=== PATIENT | female | born 1935 | race Caucasian/White ===

== ENCOUNTER 2018-05-03 20:19 | Inpatient (IN) ==
[2018-05-03] MEDS ORDERED: ACETAMINOPHEN 325 MG TABLET PO ONE (20:37)
[2018-05-03] MEDS ORDERED: 0.9 % SODIUM CHLORIDE 1,000 ML IV ONE (20:38)
--- NOTE | 2018-05-03 20:42 | Emergency Department Note ---
Fever HPI - General Chief Complaint: Fever Stated Complaint: fever, nausea Time Seen by Provider: 05/03/18 20:26 Mode of arrival: ambulatory - History of Present Illness HPI Narrative: Patient states she developed chills and fever just that 5:00 this evening. She had some nausea and vomited one time but is having no abdominal pain. She has had no hematemesis no melena. No diarrhea or constipation issues. Denies any urgency frequency or dysuria. She was seen for similar type symptoms at [facility] in December and had a UTI at that time. She denies any cough there is been no sputum production no shortness of breathTemperatures 103.1 the pulse is 76 respirations are 16 blood pressure 137/60 she denies any pain - Related Data Home Medications Medication Instructions Recorded Confirmed No Known Home Meds 09/30/15 05/03/18 Allergies Allergy/AdvReac Type Severity Reaction Status Date / Time No Known Drug Allergies Allergy Verified 05/03/18 20:25 Review of Systems All systems ED: reviewed and negative except as stated. Constitutional: Reports: fever, chills Eyes: Denies: eye pain ENT ED: Denies: ear pain, throat pain Cardiovascular: Denies: chest pain, palpitations Respiratory: Denies: shortness of breath, cough Gastrointestinal: Reports: nausea, vomiting. Denies: abdominal pain, diarrhea, constipation Genitourinary: Reports: as per HPI. Denies: dysuria, urgency, frequency, hematuria, incontinence Musculoskeletal: Denies: as per HPI, back pain Integumentary: Denies: rash Neurological: Denies: headache Psychiatric: Denies: anxiety Fever PMH - Past Medical History [facility] Narrative: All Active Problems Pleural effusion, left (Acute) Lymphadenopathy (Acute) Medical history: Reports: other (melanoma, breast cancer) - Social History smoking status: Former smoker Physical Exam Limitations: no limitations General appearance: alert Head: atraumatic, normocephalic Eye: Present: normal appearance, PERRL ENT: normal exam, normal oropharynx, mucous membranes dry Neck: Present: normal inspection, full ROM. Absent: trachea midline Chest: Present: normal inspection, symmetric chest wall rise. Absent: tenderness Respiratory: Present: normal lung sounds bilaterally. Absent: respiratory distress, rales/crackles Cardiovascular: Present: regular rate, normal rhythm. Absent: bradycardia, tachycardia Abdominal: Present: soft, normal bowel sounds. Absent: distention, tenderness, guarding, rebound, rigidity Extremities: Present: normal inspection, full ROM. Absent: tenderness Back: Present: normal inspection, full ROM. Absent: tenderness, CVA tenderness (R), CVA tenderness (L) Neurological: Present: alert, oriented X3, CN II-XII intact Psychiatric: Present: normal affect, normal mood Skin: Present: warm, dry Course Vital Signs Temperature 103.1 F H 05/03/18 20:19 Pulse Rate 76 05/03/18 20:19 Respiratory Rate 16 05/03/18 20:19 Blood Pressure 137/60 05/03/18 20:19 Temperature 99.8 F H 05/03/18 22:29 Pulse Rate 105 H 05/03/18 22:46 Respiratory Rate 24 H 05/03/18 22:46 Blood Pressure 101/86 05/03/18 22:46 Pulse Oximetry (%) 99 05/03/18 22:46 Fever - MDM Narrative Medical decision making narrative: Her most recent temperature is 99.8 blood pressure 108/53 104/48 101/86 heart rates been varying from [id number] socks is right from 93-99 WBC is 7500 the hemoglobin is 12.5 hematocrit of 37.2 lactic acid is 1.9 sodium is 137 potassium 3.8 BUN is 16 creatinine 1.0 urine test is clear with 2 WBCs to RBCs. Chest x-ray was read by Romana indicating vague infiltrates patient blood cultures have been drawn and started on Rocephin and Zithromax. Dr. Mcfarland contacted and patient to be admitted - Lab Data Result diagrams: 05/03/18 20:50 05/03/18 20:50 Lab Results 05/03/18 05/03/18 05/03/18 Range/Units 20:50 20:50 20:50 WBC 7.5 (4.5-11.0) K/mcL RBC 4.13 (4.00-5.20) M/mcL Hgb 12.5 (12.0-15.0) g/dL Hct 37.2 (36.0-48.0) % MCV 90.1 (80.0-100.0) fL MCH 30.1 (26.0-34.0) pg MCHC 33.4 (31.0-36.0) g/dL RDW 12.6 (11.5-14.5) % Plt Count 261 (140-440) K/mcL MPV 7.0 L (7.4-10.4) fL Gran % 93.0 H (38.0-78.0) % Lymph % (Auto) 3.5 L (15.5-49.0) % [place] % (Auto) 2.7 (1.0-12.0) % Eos % (Auto) 0.8 (0.0-7.0) % Baso % (Auto) 0 (0.0-2.0) % Gran # 6.9 (1.8-8.0) K/mcL Lymph # (Auto) 0.3 L (1.5-4.8) K/mcL [place] # (Auto) 0.2 (0.1-0.9) K/mcL Eos # (Auto) 0.1 (0.0-0.7) K/mcL Baso # (Auto) 0 (0.0-0.3) K/mcL VBG Lactic Acid 1.9 (0.5-2.0) mmol/L Sodium 137 (133-145) mmol/L Potassium 3.8 (3.3-5.1) mmol/L Chloride 98 (96-108) mmol/L Carbon Dioxide 26 (22-30) mmol/L Anion Gap 13.0 (8-16) BUN 16 (8-23) mg/dl Creatinine 1.0 (0.6-1.1) mg/dl GFR Calculation 52 Glucose 116 H (70-105) mg/dL Calcium 9.0 (8.6-10.4) mg/dl Total Bilirubin 0.5 (0.0-1.0) mg/dL AST 28 (0-37) U/l ALT 17 (0-40) U/l Alkaline Phosphatase 81 (39-117) U/L Total Protein 7.4 (5.9-8.4) gm/dL Albumin 3.6 (3.2-5.2) gm/dL Globulin 3.8 H (2.2-3.7) gm/dL Albumin/Globulin Ratio 0.9 L (1.0-2.3) Urine Color Urine Appearance Urine pH (5.0-9.0) Ur Specific [place] (1.000-1.035) Urine Protein (NEG) mg/dL Urine Glucose (UA) (NEG) mg/dL Urine Ketones (NEG) mg/dL Urine Occult Blood (<0.03) mg/dL Urine Nitrate (NEG) Urine Bilirubin (NEG) mg/dL Urine Urobilinogen (NEG) mg/dL Ur Leukocyte Esterase (NEG) /uL Urine RBC (0-1) /hpf Urine WBC (0-4) /hpf Ur Squamous Epith Cells (0-4) /hpf Urine Bacteria (0) /hpf Hyaline Casts (0-2) /lpf Urine Mucus (0) /hpf Ur Culture Indicated? 05/03/18 Range/Units 21:30 WBC (4.5-11.0) K/mcL RBC (4.00-5.20) M/mcL Hgb (12.0-15.0) g/dL Hct (36.0-48.0) % MCV (80.0-100.0) fL MCH (26.0-34.0) pg MCHC (31.0-36.0) g/dL RDW (11.5-14.5) % Plt Count (140-440) K/mcL MPV (7.4-10.4) fL Gran % (38.0-78.0) % Lymph % (Auto) (15.5-49.0) % [place] % (Auto) (1.0-12.0) % Eos % (Auto) (0.0-7.0) % Baso % (Auto) (0.0-2.0) % Gran # (1.8-8.0) K/mcL Lymph # (Auto) (1.5-4.8) K/mcL [place] # (Auto) (0.1-0.9) K/mcL Eos # (Auto) (0.0-0.7) K/mcL Baso # (Auto) (0.0-0.3) K/mcL VBG Lactic Acid (0.5-2.0) mmol/L Sodium (133-145) mmol/L Potassium (3.3-5.1) mmol/L Chloride (96-108) mmol/L Carbon Dioxide (22-30) mmol/L Anion Gap (8-16) BUN (8-23) mg/dl Creatinine (0.6-1.1) mg/dl GFR Calculation Glucose (70-105) mg/dL Calcium (8.6-10.4) mg/dl Total Bilirubin (0.0-1.0) mg/dL AST (0-37) U/l ALT (0-40) U/l Alkaline Phosphatase (39-117) U/L Total Protein (5.9-8.4) gm/dL Albumin (3.2-5.2) gm/dL Globulin (2.2-3.7) gm/dL Albumin/Globulin Ratio (1.0-2.3) Urine Color Yellow Urine Appearance Clear Urine pH 6.0 (5.0-9.0) Ur Specific [place] 1.019 (1.000-1.035) Urine Protein 30 A (NEG) mg/dL Urine Glucose (UA) Negative (NEG) mg/dL Urine Ketones Neg (NEG) mg/dL Urine Occult Blood Neg (<0.03) mg/dL Urine Nitrate Neg (NEG) Urine Bilirubin Neg (NEG) mg/dL Urine Urobilinogen Neg (NEG) mg/dL Ur Leukocyte Esterase Neg (NEG) /uL Urine RBC 2 H (0-1) /hpf Urine WBC 2 (0-4) /hpf Ur Squamous Epith Cells 1 (0-4) /hpf Urine Bacteria 0 (0) /hpf Hyaline Casts 1 (0-2) /lpf Urine Mucus Few (0) /hpf Ur Culture Indicated? No Disposition Pt seen by TRANSPORTATION CLERK/PA only: No Clinical Impression: Fever and chills, Pneumonia Disposition: Xfer As Inpt ([facility]) Condition: Fair Referrals: Jason Kerr MD [Primary Care Provider] -
[2018-05-03] MEDS ORDERED: AZITHROMYCIN 500 MG in DEXTROSE 5% IN WATER 250 ML IV ONE (21:43)
[2018-05-03] MEDS ORDERED: cefTRIAXone 1 GM VIAL IV ONE (21:44)
[2018-05-03 21:53] LABS: Basophils # (Auto) 0 K/mcL (0.0-0.3); Basophils % (Auto) 0 % (0.0-2.0); Eosinophils # (Auto) 0.1 K/mcL (0.0-0.7); Eosinophils % (Auto) 0.8 % (0.0-7.0); Lymphocytes # (Auto) 0.3 K/mcL (1.5-4.8); Lymphocytes % (Auto) 3.5 % (15.5-49.0); Mean Cell Volume 90.1 fL (80.0-100.0); Mean Corpuscular HGB Conc 33.4 g/dL (31.0-36.0); Mean Corpuscular Hemoglobin 30.1 pg (26.0-34.0); Monocytes # (Auto) 0.2 K/mcL (0.1-0.9); Monocytes % (Auto) 2.7 % (1.0-12.0); Platelet Count 261 K/mcL (140-440); RBC 4.13 M/mcL (4.00-5.20); Red Cell Distribution Width 12.6 % (11.5-14.5)
[2018-05-03 22:00] LABS: ALT/SGPT 17 U/l (0-40); Albumin 3.6 gm/dL (3.2-5.2); Albumin/Globulin Ratio 0.9 (1.0-2.3); Alkaline Phosphatase 81 U/L (39-117); Blood Urea Nitrogen 16 mg/dl (8-23)
[2018-05-03 22:53] LABS: Appearance,Urine CLEAR; Bacteria,Urine 0 /hpf (0); Bilirubin,Urine NEG (NEG); Color,Urine YELLOW; Glucose,Urine (UA) NEGATIVE (NEG); Leukocyte Esterase,Urine NEG /uL (NEG); Mucus,Urine FEW /hpf (0); Protein,Urine 30 mg/dL (NEG); Specific Gravity,Urine 1.019 (1.000-1.035); Urine Blood NEG mg/dL (<0.03); Urine Hyaline Cast 1 /lpf (0-2); Urine RBC 2 /hpf (0-1); Urine Squamous Epithelial Cell 1 /hpf (0-4); Urine WBC 2 /hpf (0-4); Urobilinogen,Urine NEG (NEG)
[2018-05-04] MEDS ORDERED: ACETAMINOPHEN 1,000 MG/100 ML BOTTLE IV PRN ×2 (00:59→10:27)
[2018-05-04] MEDS ORDERED: POTASSIUM CHLORIDE 20 MEQ PACKET PO PRN ×2 (00:59→10:27)
[2018-05-04] MEDS ORDERED: MAGNESIUM SULFATE 2 GM/50 ML BAG IV PRN ×2 (00:59→10:27)
[2018-05-04] MEDS ORDERED: ONDANSETRON 4 MG/2 ML VIAL IV PRN ×2 (00:59→10:27)
[2018-05-04] MEDS ORDERED: ACETAMINOPHEN 325 MG TABLET PO PRN (00:59)
[2018-05-04] MEDS ORDERED: 0.9 % SODIUM CHLORIDE 1,000 ML IV SCH (00:59)
[2018-05-04] MEDS ORDERED: PNEUMOCOCCAL 23-VAL P-SAC VAC 0.5 ML VIAL IM ONE (00:59)
[2018-05-04] MEDS ORDERED: cefTRIAXone 2 GM in DEXTROSE 5% IN WATER 50 ML IV SCH (00:59)
[2018-05-04] MEDS ORDERED: LEVOFLOXACIN 750 MG/150 ML BAG IV SCH (00:59)
[2018-05-04] MEDS ORDERED: cefTRIAXone 1 GM VIAL ONE (01:19)
[2018-05-04] MEDS ORDERED: LEVOFLOXACIN 750 MG/150 ML BAG IV ONE (01:19)
[2018-05-04 02:48] LABS: C-Reactive Protein 2.9 mg/dl (0.0-0.8)
[2018-05-04] MEDS: IPRATROPIUM/ALBUTEROL 3 ML AMPUL.NEB NEB SCH ×2 (03:56→07:22)
[2018-05-04] MEDS ORDERED: IPRATROPIUM/ALBUTEROL 3 ML AMPUL.NEB NEB ONE (03:58)
[2018-05-04] MEDS ORDERED: 0.9 % SODIUM CHLORIDE 10 ML SYRINGE IV SCH (06:00)
--- NOTE | 2018-05-04 07:52 | XRay Report ---
HISTORY: Fever and chest pain FINDINGS: The heart is mildly enlarged. There is mild generalized haziness throughout the lung parenchyma bilaterally. This could be due to pneumonia or congestive heart failure. The left-sided pleural effusion seen on 09/30/15 has resolved. There is no recurrent effusion. The aorta is tortuous. There is no consolidating infiltrate or evidence of a lung mass. IMPRESSION: Cardiomegaly which has increased since 2016. Alveolar opacities which may be congestive heart failure or mild widespread pneumonia Interpreted and Authenticated by: Hiro Lay 05/04/18
[2018-05-04] MEDS ORDERED: BUDESONIDE 0.5 MG/2 ML AMPUL.NEB NEB SCH ×2 (09:00→21:00)
[2018-05-04] MEDS ORDERED: MULTIVIT,THER IRON,CA,FA & MIN 1 TABLET PO SCH (09:00)
[2018-05-04] MEDS ORDERED: DOCUSATE SODIUM 100 MG CAPSULE PO SCH (09:00)
[2018-05-04] MEDS ORDERED: HEPARIN 5,000 UNIT/ML VIAL SQ SCH (09:00)
[2018-05-04] MEDS ORDERED: CLINDAMYCIN 600 MG in DEXTROSE 5% IN WATER 50 ML IV SCH (10:00)
--- NOTE | 2018-05-04 10:12 | Internal Med Progress Note ---
Medical - PN: Subj Patient information: Note initiated : 05/04/18 at 10:10 am Service Date, if different from initiated Date: [] Patient: Lynette Salamanca 82 y/o F admitted on 05/04/18 for fever, nausea. Chief Complaint: [] Interval history: 05/03-patient admitted with left lower extremity lymphangitis/cellulitis likely group B streptococcus. Rapidly progressing and hence started on clindamycin/ Rocephin. Await blood cultures. Continue close monitoring, lactic acid trending. Current lactic acid 2.6. On crystalloids. - Constitutional Vitals: Vital Signs Temp Pulse Resp BP Pulse Ox 98.4 F 76 24 H 96/52 96 05/04/18 06:46 05/04/18 09:28 05/04/18 09:28 05/04/18 09:28 05/04/18 08:51 Period Temp Pulse Resp BP Sys/Tobar Pulse Ox Last 24 Hr 97.8 F-103.1 F 74-115 16-32 79-146/42-86 86-100 Intake and Output 05/03/18 05/04/18 05/04/18 21:59 05:59 13:59 Intake Total 250 / 250 150 / 150 Output Total 0 / 0 Balance 250 / 250 150 / 150 Weight 153 lb 155 lb Intake & Output: Intake & Output 05/03/18 05/04/18 05/04/18 21:59 05:59 13:59 Intake Total 250 / 250 150 / 150 Output Total 0 / 0 Balance 250 / 250 150 / 150 Weight 153 lb 155 lb Intake: IV 250 / 250 150 / 150 Zithromax 500 mg In Dextrose 5% 250 / 250 in Water 250 ml @ 250 mls/hr IV ONCE ONE Rx#:[id number] Oral 0 / 0 Output: Void Amount 0 / 0 Other: Meal Breakfast Percent of Meal Consumed Refused Feeding Ability Independent General appearance: cooperative, no acute distress Exam: Alert oriented nonlabored breathing No anxiety Left lower extremity mid carrera erythema extending to the dorsum of the foot/ ankle with associated calf tenderness Medical - PN: Obj Da - Labs CBC & Chem 7: 05/03/18 20:50 05/03/18 20:50 Labs: Abnormal Lab Results 05/04/18 05/04/18 05/04/18 08:53 01:18 01:18 MPV Gran % Lymph % (Auto) Lymph # (Auto) ESR 46 H VBG Lactic Acid 2.6 H Glucose C-Reactive Protein 2.9 H Globulin Albumin/Globulin Ratio Urine Protein Urine RBC 05/03/18 05/03/18 05/03/18 21:30 20:50 20:50 MPV 7.0 L Gran % 93.0 H Lymph % (Auto) 3.5 L Lymph # (Auto) 0.3 L ESR VBG Lactic Acid Glucose 116 H C-Reactive Protein Globulin 3.8 H Albumin/Globulin Ratio 0.9 L Urine Protein 30 A Urine RBC 2 H Meds: Medications Acetaminophen (Tylenol) 650 mg PO Q4-6HP PRN PRN Reason: PAIN/FEVER > 101 Albuterol/Ipratropium (Duoneb) 3 ml NEB Q4HRT [facility] Last Admin: 05/04/18 07:22 Dose: Not Given Budesonide (Pulmicort) 0.5 mg NEB Q12 [facility] Last Admin: 05/04/18 07:22 Dose: Not Given Docusate Sodium (Colace) 100 mg PO BID [facility] Heparin Sodium (Porcine) (Heparin) 5,000 unit SQ Q12 [facility] Ceftriaxone Sodium 2 gm/ (Dextrose) 50 mls @ 100 mls/hr IV Q24H [facility] Last Admin: 05/04/18 01:48 Dose: Not Given Magnesium Sulfate (Magnesium Sulfate) 2 gm in 50 mls @ 50 mls/hr IV UD PRN PRN Reason: MG = or < 1.7 Sodium Chloride (Sodium Chloride 0.9%) 1,000 mls @ 50 mls/hr IV .Q20H [facility] Stop: 05/06/18 12:58 Last Admin: 05/04/18 01:18 Dose: 50 mls/hr Acetaminophen (Ofirmev) 1,000 mg in 100 mls @ 200 mls/hr IV Q6HP PRN PRN Reason: PAIN/FEVER > 101 Levofloxacin (Levaquin) 750 mg in 150 mls @ 100 mls/hr IV Q48H [facility] Clindamycin Phosphate 600 mg/ (Dextrose) 54 mls @ 100 mls/hr IV Q8H [facility] Iron Carb/Multivit/[place]/Folic Acid (Multivitamin W/Minerals) 1 tab PO DAILY [facility] Ondansetron HCl (Zofran) 4 mg IV Q4-6HP PRN PRN Reason: Nausea And Vomiting Pneumococcal Polyvalent Vaccine (Pneumovax 23) 0.5 ml IM .ONCE ONE Stop: 05/05/18 10:01 Potassium Chloride (Klor-Con) 40 meq PO DAILYP PRN PRN Reason: K+ < 3.5 Senna/Docusate Sodium (Senna Plus Tablet) 1 tab PO HS [place] Sodium Chloride (Saline Flush) 10 ml IV Q8 [facility] Last Admin: 05/04/18 06:58 Dose: Not Given Medical - PN: A/P - Time Spent With Patient Total time spent is greater than 50% in coordination of care (as documented) at patient's floor/unit and/or counseling patient: 25 - 35 minutes (1) Cellulitis of leg without foot, left Status: Acute Assessment and plan: * Cellulitis with lymphangitis left lower extremity-broad antibiotic coverage for presumed group B streptococcus. * Left calf swelling and pain rule out DVT-ultrasound Doppler * Pain management on as needed Tylenol * Full code * Prophylaxis heparin Plan * Transition to inpatient status * Antibiotic coverage * Doppler lower extremity * Obtain medical records from primary care physician Current Visit: Yes Medical - PN: Qual - VTE Deep Vein Thrombosis/Pulmonary Embolism Present on Admission: No
[2018-05-04] MEDS ORDERED: IPRATROPIUM/ALBUTEROL 3 ML AMPUL.NEB NEB PRN (10:30)
--- NOTE | 2018-05-04 10:46 | History and Physical Report ---
DATE OF ADMISSION: 05/04/2018 REASON FOR ADMISSION: Fever, shaking chills, weakness. PRIMARY CARE PHYSICIAN: Jason Kerr MD HISTORY OF CHIEF COMPLAINTS: The patient is an 82-year-old mother of 9 who lives fairly independently and was out having dinner with her son, started experiencing shaking chills along with fever. The symptoms worsened over the next 45 minutes with fever rising from 101 to max of 103. The patient otherwise was in her baseline state of health all day. She had associated left lower extremity pain and swelling. Subsequently, EMS was called and she was brought into Emergency Room where initial workup was significant for fever of over 103. The patient, however, denies headache or photophobia but endorses to myalgia and arthralgia. Her shaking chills have subsided. She underwent initial workup including blood cultures and antibiotics were started for presumed pneumonia on chest imaging. Subsequently, Hospitalist Service was consulted. At the time of evaluation, the patient is accompanied by her daughter, Nida and son. They were able to answer most of the questions. The patient did not appear confused. She denies diarrhea, dysuria, or abdominal pain. She, however, endorses to left lower extremity along with calf pain. There is minimal redness around the mid carrera which she endorses from recent scratching at home. She, however, denies history of MRSA infection, boils, cysts or recent hospitalizations. REVIEW OF SYSTEMS: Ten-point review of system was performed and is negative except the ones discussed above. PAST MEDICAL HISTORY: None available; currently records are being obtained from Dr. Kerr' clinic. SOCIAL HISTORY: She lives independently and multiple family members live close by. She was a prior smoker, but no history of alcoholism or substance abuse. CURRENT MEDICATIONS: None. ALLERGIES: No known drug allergies. PHYSICAL EXAMINATION: GENERAL: The patient is alert and oriented, denies any active distress. VITAL SIGNS: Blood pressure 101/86, respiratory rate 20, temperature 103.1, pulse 104, sats 91% on room air. HEENT: Pupils symmetric. Oral cavity is dry. No ear or nose discharge. Head is normocephalic and atraumatic. NECK: No lymphadenopathy. HEART: S1, S2 regular rhythm, tachycardia. No murmur. ESM grade I appreciated at the left 2nd intercostal space. CHEST: Clear to auscultation except for late inspiratory crackles posterior chest. ABDOMEN: Soft and nontender. LOWER EXTREMITIES: Left lower extremity mid carrera redness along with increasing calf girth as compared to right calf along with calf tenderness, redness extending up to the dorsum of the foot with minimal lymphedema noted on the left lower extremity. SKIN: Otherwise, no suspicious lesions. PSYCHIATRIC: Alert and cooperative. No anxiety. NEURO: Nonfocal, moving all four extremities. LABS AND IMAGING: White count 7.5, hemoglobin 12.5. ESR 46. Lactic acid 1.9, sodium 137, potassium 3.8, creatinine 1, BUN 16. CRP 2.9. Procalcitonin 20.5. Strep negative. ASSESSMENT AND PLAN: An 82-year-old admitted with left lower extremity cellulitis/fever, likely group B streptococcus. 1. Left lower extremity cellulitis with fever-start broad antibiotic coverage; likely group B strep, given the rapidity of onset-start Rocephin/clindamycin and deescalate based on cultures. Check MRSA swab. 2. Left lower extremity pain. Continue as-needed Tylenol. 3. Lymphangitis secondary to above. Continue treatment as above. PLAN FOR TODAY: 1. Admit as observation. 2. Antibiotic coverage. 3. PT and OT. 4. Wound care if indicated. 5. Blood cultures. AA:caro Job ID: [id number] Doc ID: [id number] Eh Kerr MD
[2018-05-04] MEDS ORDERED: IPRATROPIUM/ALBUTEROL 3 ML AMPUL.NEB NEB SCH (11:00)
[2018-05-04 11:18] LABS: Mean Cell Volume 91.4 fL (80.0-100.0); Mean Corpuscular HGB Conc 33.3 g/dL (31.0-36.0); Mean Corpuscular Hemoglobin 30.5 pg (26.0-34.0); Platelet Count 226 K/mcL (140-440); RBC 3.67 M/mcL (4.00-5.20); Red Cell Distribution Width 13.5 % (11.5-14.5)
--- NOTE | 2018-05-04 11:26 | Ultrasound Report ---
History: Pain and swelling in the calf and ankle, with fever FINDINGS: In the left groin there is a cluster of well-circumscribed nodules. Some of them contain fatty central ronn. Is most likely inflamed lymph nodes. The largest measures 1.9 x 2.0 cm. There is normal augmentation and compressibility of the deep veins and saphenous vein from the groin through the calf. The peroneal veins cannot be clearly identified due to body habitus. There is some subcutaneous edema and the lower calf. IMPRESSION: No evidence of deep venous thrombosis Nonspecific lymphadenopathy in the left groin Interpreted and Authenticated by: Hiro Lay 05/04/18
[2018-05-04 11:27] LABS: ALT/SGPT 16 U/l (0-40); Albumin 3.1 gm/dL (3.2-5.2); Albumin/Globulin Ratio 0.9 (1.0-2.3); Alkaline Phosphatase 70 U/L (39-117); Bilirubin,Direct < 0.2 mg/dL (0.0-0.3); Blood Urea Nitrogen 20 mg/dl (8-23); Gamma Glutamyl Transpeptidase 22 U/L (5-36); Uric Acid 6.3 mg/dL (2.5-8.0)
[2018-05-04 11:55] LABS: Band Neutrophils % 15 % (0-10); Lymphocytes % 3 % (15-49); Monocytes % (Manual) 1 % (1-12); Platelet Estimate NORMAL (NORMAL); RBC Morphology NORMAL (NORMAL); Segmented Neutrophils % 81 % (38-78)
[2018-05-04] MEDS: CLINDAMYCIN 600 MG in DEXTROSE 5% IN WATER 50 ML IV SCH ×2 (12:21→21:21)
[2018-05-04] MEDS: 0.9 % SODIUM CHLORIDE 10 ML SYRINGE IV SCH ×2 (15:10→23:13)
[2018-05-04] MEDS: 0.9 % SODIUM CHLORIDE 1,000 ML IV SCH (15:13)
[2018-05-04] MEDS: cefTRIAXone 2 GM in DEXTROSE 5% IN WATER 50 ML IV SCH (15:51)
[2018-05-04] MEDS ORDERED: SENNOSIDES/DOCUSATE SODIUM 1 TAB TABLET PO SCH (21:00)
[2018-05-04] MEDS: SENNOSIDES/DOCUSATE SODIUM 1 TAB TABLET PO SCH (21:09)
[2018-05-04] MEDS: HEPARIN 5,000 UNIT/ML VIAL SQ SCH (21:10)
[2018-05-04] MEDS: DOCUSATE SODIUM 100 MG CAPSULE PO SCH (21:10)
[2018-05-04] MEDS: ACETAMINOPHEN 325 MG TABLET PO PRN (21:20)
[2018-05-05] MEDS: 0.9 % SODIUM CHLORIDE 10 ML SYRINGE IV SCH ×3 (04:59→23:25)
[2018-05-05] MEDS: CLINDAMYCIN 600 MG in DEXTROSE 5% IN WATER 50 ML IV SCH ×2 (05:33→16:14)
[2018-05-05] MEDS: 0.9 % SODIUM CHLORIDE 1,000 ML IV SCH (05:33)
[2018-05-05 06:11] LABS: Mean Cell Volume 92.2 fL (80.0-100.0); Mean Corpuscular HGB Conc 33.6 g/dL (31.0-36.0); Mean Corpuscular Hemoglobin 30.9 pg (26.0-34.0); Platelet Count 209 K/mcL (140-440); RBC 3.77 M/mcL (4.00-5.20); Red Cell Distribution Width 13.4 % (11.5-14.5)
[2018-05-05 06:29] LABS: ALT/SGPT 28 U/l (0-40); Albumin 2.8 gm/dL (3.2-5.2); Albumin/Globulin Ratio 0.8 (1.0-2.3); Alkaline Phosphatase 69 U/L (39-117); Bilirubin,Direct < 0.2 mg/dL (0.0-0.3); Blood Urea Nitrogen 25 mg/dl (8-23); Gamma Glutamyl Transpeptidase 20 U/L (5-36); Uric Acid 6.2 mg/dL (2.5-8.0)
[2018-05-05 06:48] LABS: Band Neutrophils % 47 % (0-10); Lymphocytes % 6 % (15-49); Monocytes % (Manual) 1 % (1-12); Platelet Estimate NORMAL (NORMAL); RBC Morphology NORMAL (NORMAL); Segmented Neutrophils % 46 % (38-78)
[2018-05-05] MEDS: DOCUSATE SODIUM 100 MG CAPSULE PO SCH ×2 (08:13→23:24)
[2018-05-05] MEDS: HEPARIN 5,000 UNIT/ML VIAL SQ SCH ×2 (08:13→20:43)
[2018-05-05] MEDS: cefTRIAXone 2 GM in DEXTROSE 5% IN WATER 50 ML IV SCH (08:13)
[2018-05-05] MEDS: MULTIVIT,THER IRON,CA,FA & MIN 1 TABLET PO SCH (08:13)
[2018-05-05] MEDS ORDERED: LEVOFLOXACIN 750 MG/150 ML BAG IV SCH ×2 (10:00)
[2018-05-05] MEDS ORDERED: PNEUMOCOCCAL 23-VAL P-SAC VAC 0.5 ML VIAL IM ONE (10:00)
--- NOTE | 2018-05-05 10:28 | Internal Med Progress Note ---
Medical - PN: Subj Patient information: Note initiated : 05/05/18 at 10:26 am Service Date, if different from initiated Date: [] Patient: Lynette Salamanca 82 y/o F admitted on 05/04/18 for fever, nausea. Chief Complaint: [] Interval history: 05/04-patient admitted with left lower extremity lymphangitis/cellulitis likely group B streptococcus. Rapidly progressing and hence started on clindamycin/ Rocephin. Await blood cultures. Continue close monitoring, lactic acid trending. Current lactic acid 2.6. On crystalloids. 05/05-wound care consulted. White count at 15.5. 47% bands. Worsening lower extremity redness. Wound care recommends CT scan to rule out osteomyelitis. Blood cultures negative so far. Antibiotic spectrum extended with clindamycin along with Rocephin. Patient however feeling better than previous day and able to bear weight and ambulate. Start aggressive diuresis in light of significant lymphedema. - Constitutional Vitals: Vital Signs Temp Pulse Resp BP Pulse Ox 97.5 F 66 16 108/62 93 05/05/18 06:40 05/05/18 06:40 05/05/18 06:40 05/05/18 06:40 05/05/18 06:40 Period Temp Pulse Resp BP Sys/Tobar Pulse Ox Last 24 Hr 97.5 F-99.8 F 66-78 16-24 94-118/50-62 92-94 Intake and Output 05/04/18 05/05/18 05/05/18 21:59 05:59 13:59 Intake Total 1334 / 1334 1271 / 1271 104 / 104 Output Total 200 / 200 Balance 1334 / 1334 1271 / 1271 -96 / -96 Weight 163 lb 8 oz Intake & Output: Intake & Output 05/04/18 05/05/18 05/05/18 21:59 05:59 13:59 Intake Total 1334 / 1334 1271 / 1271 104 / 104 Output Total 200 / 200 Balance 1334 / 1334 1271 / 1271 -96 / -96 Weight 163 lb 8 oz Intake: IV 54 / 54 821 / 821 104 / 104 Sodium Chloride 0.9% 1,000 ml @ 717 / 717 50 mls/hr IV .Q20H [facility] Rx#: [id number] Cleocin 600 mg In Dextrose 5% 54 / 54 54 / 54 54 / 54 in Water 50 ml @ 100 mls/hr IV Q8H [facility] Rx#:[id number] Rocephin 2 gm In Dextrose 5% in 50 / 50 50 / 50 Water 50 ml @ 100 mls/hr IV DAILY [facility] Rx#:[id number] Oral 1280 / 1280 450 / 450 Output: Void Amount 200 / 200 Other: Meal Dinner Breakfast Percent of Meal Consumed 75% 25% Feeding Ability Independent Assist with Tray Set Up Urine Appearance Clear Urine Color Dark Yellow Stool Size Moderate Small Stool Color Brown Brown Stool Consistency Formed Formed # Voids 1 # Bowel Movements 1 1 General appearance: no acute distress Exam: Alert oriented Nonlabored breathing Left lower extremity significant lymphedema/oozing noted/erythema and tenderness worsening since previous day No anxiety Medical - PN: Obj Da - Labs CBC & Chem 7: 05/05/18 04:36 05/05/18 04:36 Labs: Abnormal Lab Results 05/05/18 05/05/18 05/04/18 04:36 04:36 08:53 WBC 15.4 H RBC 3.77 L Hgb 11.7 L Hct 34.8 L MPV Gran % Lymph % (Auto) Lymph # (Auto) Seg Neutrophils % Band Neutrophils % 47 H Lymphocytes % 6 L ESR VBG Lactic Acid 2.6 H Sodium Chloride Carbon Dioxide Anion Gap BUN 25 H Glucose Calcium 8.5 L Phosphorus AST 43 H Lactate Dehydrogenase 296 H C-Reactive Protein Albumin 2.8 L Globulin Albumin/Globulin Ratio 0.8 L Urine Protein Urine RBC 05/04/18 05/04/18 05/04/18 01:18 01:18 01:18 WBC RBC 3.67 L Hgb 11.2 L Hct 33.6 L MPV 7.2 L Gran % Lymph % (Auto) Lymph # (Auto) Seg Neutrophils % 81 H Band Neutrophils % 15 H Lymphocytes % 3 L ESR VBG Lactic Acid Sodium 148 H Chloride 109 H Carbon Dioxide 19 L Anion Gap 20.0 H BUN Glucose 124 H Calcium Phosphorus 2.5 L AST Lactate Dehydrogenase 305 H C-Reactive Protein 2.9 H Albumin 3.1 L Globulin Albumin/Globulin Ratio 0.9 L Urine Protein Urine RBC 05/04/18 05/03/18 05/03/18 01:18 21:30 20:50 WBC RBC Hgb Hct MPV Gran % Lymph % (Auto) Lymph # (Auto) Seg Neutrophils % Band Neutrophils % Lymphocytes % ESR 46 H VBG Lactic Acid Sodium Chloride Carbon Dioxide Anion Gap BUN Glucose 116 H Calcium Phosphorus AST Lactate Dehydrogenase C-Reactive Protein Albumin Globulin 3.8 H Albumin/Globulin Ratio 0.9 L Urine Protein 30 A Urine RBC 2 H 05/03/18 20:50 WBC RBC Hgb Hct MPV 7.0 L Gran % 93.0 H Lymph % (Auto) 3.5 L Lymph # (Auto) 0.3 L Seg Neutrophils % Band Neutrophils % Lymphocytes % ESR VBG Lactic Acid Sodium Chloride Carbon Dioxide Anion Gap BUN Glucose Calcium Phosphorus AST Lactate Dehydrogenase C-Reactive Protein Albumin Globulin Albumin/Globulin Ratio Urine Protein Urine RBC Meds: Medications Acetaminophen (Tylenol) 650 mg PO Q4-6HP PRN PRN Reason: PAIN/FEVER > 101 Last Admin: 05/04/18 21:20 Dose: 650 mg Albuterol/Ipratropium (Duoneb) 3 ml NEB Q4HP PRN PRN Reason: Shortness Of Breath Or Wheezing Docusate Sodium (Colace) 100 mg PO BID [facility] Last Admin: 05/05/18 08:13 Dose: 100 mg Furosemide (Lasix) 20 mg IV Q8 [facility] Heparin Sodium (Porcine) (Heparin) 5,000 unit SQ Q12 [facility] Last Admin: 05/05/18 08:13 Dose: 5,000 unit Ceftriaxone Sodium 2 gm/ (Dextrose) 50 mls @ 100 mls/hr IV DAILY [facility] Last Infusion: 05/05/18 10:12 Dose: Infused Clindamycin Phosphate 600 mg/ (Dextrose) 54 mls @ 100 mls/hr IV Q8H [facility] Last Infusion: 05/05/18 08:18 Dose: Infused Magnesium Sulfate (Magnesium Sulfate) 2 gm in 50 mls @ 50 mls/hr IV UD PRN PRN Reason: MG = or < 1.7 Sodium Chloride (Sodium Chloride 0.9%) 1,000 mls @ 50 mls/hr IV .Q20H [facility] Stop: 05/06/18 12:58 Last Admin: 05/05/18 05:33 Dose: 50 mls/hr Acetaminophen (Ofirmev) 1,000 mg in 100 mls @ 200 mls/hr IV Q6HP PRN PRN Reason: PAIN/FEVER > 101 Iron Carb/Multivit/[place]/Folic Acid (Multivitamin W/Minerals) 1 tab PO DAILY [facility] Last Admin: 05/05/18 08:13 Dose: 1 tab Ondansetron HCl (Zofran) 4 mg IV Q4-6HP PRN PRN Reason: Nausea And Vomiting Potassium Chloride (Klor-Con) 40 meq PO DAILYP PRN PRN Reason: K+ < 3.5 Senna/Docusate Sodium (Senna Plus Tablet) 1 tab PO HS [facility] Last Admin: 05/04/18 21:09 Dose: 1 tab Sodium Chloride (Saline Flush) 10 ml IV Q8 [facility] Last Admin: 05/05/18 04:59 Dose: Not Given Medical - PN: A/P - Time Spent With Patient Total time spent is greater than 50% in coordination of care (as documented) at patient's floor/unit and/or counseling patient: 25 - 35 minutes (1) Cellulitis of leg without foot, left Status: Acute Assessment and plan: * Severe sepsis with 47% bandemia and leukocytosis. * Cellulitis with lymphangitis left lower extremity-wound care consulted. KRYSTYNA/ CT lower extremity to rule out vascular insufficiency/osteomyelitis. * Left calf swelling and pain -secondary to above. Dopplers negative for DVT. * History of lung mass-managed outpatient by Dr. Osborne oncology * Full code * Prophylaxis heparin Plan * Start aggressive diuresis * CT lower extremity with contrast to rule out osteomyelitis/fasciitis * Pain management * Wound care consult Current Visit: Yes Medical - PN: Qual - VTE Deep Vein Thrombosis/Pulmonary Embolism Present on Admission: No
[2018-05-05] MEDS ORDERED: IOPAMIDOL 100 ML BOTTLE IV ONE (10:46)
--- NOTE | 2018-05-05 11:00 | Cat Scan Report ---
History: Cellulitis and fever Technique: The left lower leg was imaged following injection of intravenous contrast scanning from the knee to the foot. Sagittal and coronal reformats were created. Radiation exposure was limited using dose reduction technology. FINDINGS: There is moderate to severe edema/cellulitis in the lower leg. The greatest swelling is located medial to the ankle and distal tibia. This extends distally into the foot and proximally to the upper calf. There is no abscess or mass. No myositis is present. There is fatty infiltration of the distal portion of the gastrocnemius muscles. Calcified plaques are present in the popliteal artery causing up to 50% stenosis. There is good three-vessel runoff in the calf down to the ankle. No venous thrombosis is present. There are multiple tiny calcified phleboliths in the subcutaneous veins throughout the calf. There are a few varicose veins in the mid calf down to the ankle. Patient has had repair of an old lateral tibial plateau fracture. There is a metal plate and screw secured to the tibia. 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 The ankle joint space is normal and there is no joint effusion in the ankle. The bones are otherwise normal without evidence of an acute fracture or osteomyelitis. IMPRESSION: Severe cellulitis/edema in the left lower leg without evidence of an abscess, septic joint or osteomyelitis Interpreted and Authenticated by: Hiro Lay 05/05/18
[2018-05-05] MEDS: FUROSEMIDE 20 MG/2 ML VIAL IV SCH ×3 (11:36→23:39)
[2018-05-05] MEDS ORDERED: VANCOMYCIN PER PHARMACY IV SCH (15:46)
--- NOTE | 2018-05-05 16:07 | General Surgery Consult Note ---
History of Present Illness Patient information: Note initiated : 05/05/18 at 4:02 pm Service Date, if different from initiated Date: [] Patient: Lynette Salamanca 82 y/o F admitted on 05/04/18 for fever, nausea. Chief Complaint: [] Consult date: 05/05/18 Requesting physician: Eh Mccoy (Cellulitis LEFT leg) History of present illness: I saw this 82-year-old female in room 108. Patient was admitted via emergency room with fever and chills for over 48 hours. Workup revealed Pneumonia, mild CHF and skin and soft tissue infection of left leg with lymphedema, lymphangitis and cellulitis. Patient ambulates without difficulty and has no respiratory distress. 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 She has an artificial left eye. Medications and Allergies Home Medications Medication Instructions Recorded Confirmed Type No Known Home Meds 09/30/15 05/03/18 History Allergies Allergy/AdvReac Type Severity Reaction Status Date / Time No Known Drug Allergies Allergy Verified 05/03/18 20:25 Exam Temp Pulse Resp BP Pulse Ox 97.2 F 72 18 115/35 93 05/05/18 11:11 05/05/18 11:11 05/05/18 11:11 05/05/18 11:11 05/05/18 11:11 - General physical appearance well developed, well nourished, no distress, moderate pain (PAIN left foot, lower half of leg with inflammatory changes as marked on skin. ) - Eyes PERRL, normal ocular movement, other (Artificial left eye, s/p enucleation several years ago. ) - ENT normal pinna, normal nares, normal mucosa, no congestion - Head Head exam IM: Present: atraumatic, normal inspection, normocephalic - Neck no masses, no bruits, no venous distension - Cardiovascular Cardiovascular exam IM: Present: normal rate and rhythm Peripheral pulses: 3+/4+: carotid (R), dorsalis pedis (L) - Respiratory normal respiratory effort, other absent breath sounds: bilateral (Diminished air entry lung bases) - Abdomen Abdomen: Present: soft, non tender, bowel sounds - Integumentary Present: other (Warmth, redness and edema of left foot, ankle and lower half leg. ) - Neurologic Present: normal coordination, normal sensation, other (Non lateralizing and non focal neurological examination ) - Musculoskeletal Present: normal gait, other (Post surgical changes left leg ( h/o ) ORIF with tibial hardware. Inflammatory changes skin and sub cutaneous tissue from foot and ankle to lower half of leg. ) - Psychiatric Present: oriented to time, oriented to person, oriented to place, speech is normal, memory intact Results - Labs 05/05/18 04:36 05/05/18 04:36 Abnormal lab results 05/05/18 05/05/18 Range/Units 04:36 04:36 WBC 15.4 H (4.5-11.0) K/mcL RBC 3.77 L (4.00-5.20) M/mcL Hgb 11.7 L (12.0-15.0) g/dL Hct 34.8 L (36.0-48.0) % Band Neutrophils % 47 H (0-10) % Lymphocytes % 6 L (15-49) % BUN 25 H (8-23) mg/dl Calcium 8.5 L (8.6-10.4) mg/dl AST 43 H (0-37) U/l Lactate Dehydrogenase 296 H (94-250) U/L Albumin 2.8 L (3.2-5.2) gm/dL Albumin/Globulin Ratio 0.8 L (1.0-2.3) Diabetes panel 05/05/18 Range/Units 04:36 Sodium 138 (133-145) mmol/L Potassium 4.4 (3.3-5.1) mmol/L Chloride 99 (96-108) mmol/L Carbon Dioxide 26 (22-30) mmol/L BUN 25 H (8-23) mg/dl Creatinine 1.1 (0.6-1.1) mg/dl Glucose 76 (70-105) mg/dL Calcium 8.5 L (8.6-10.4) mg/dl AST 43 H (0-37) U/l ALT 28 (0-40) U/l Alkaline Phosphatase 69 (39-117) U/L Total Protein 6.1 (5.9-8.4) gm/dL Albumin 2.8 L (3.2-5.2) gm/dL Triglycerides 131 (<150) mg/dl Calcium panel 05/05/18 Range/Units 04:36 Calcium 8.5 L (8.6-10.4) mg/dl Phosphorus 3.8 (2.7-4.5) mg/dL Albumin 2.8 L (3.2-5.2) gm/dL Pituitary panel 05/05/18 Range/Units 04:36 Sodium 138 (133-145) mmol/L Potassium 4.4 (3.3-5.1) mmol/L Chloride 99 (96-108) mmol/L Carbon Dioxide 26 (22-30) mmol/L BUN 25 H (8-23) mg/dl Creatinine 1.1 (0.6-1.1) mg/dl Glucose 76 (70-105) mg/dL Calcium 8.5 L (8.6-10.4) mg/dl Adrenal panel 05/05/18 Range/Units 04:36 Sodium 138 (133-145) mmol/L Potassium 4.4 (3.3-5.1) mmol/L Chloride 99 (96-108) mmol/L Carbon Dioxide 26 (22-30) mmol/L BUN 25 H (8-23) mg/dl Creatinine 1.1 (0.6-1.1) mg/dl Glucose 76 (70-105) mg/dL Calcium 8.5 L (8.6-10.4) mg/dl Total Bilirubin 0.3 (0.0-1.0) mg/dL AST 43 H (0-37) U/l ALT 28 (0-40) U/l Alkaline Phosphatase 69 (39-117) U/L Total Protein 6.1 (5.9-8.4) gm/dL Albumin 2.8 L (3.2-5.2) gm/dL All other labs normal. Assessment and Plan (1) Myositis of left lower leg CT scan with contrast reveals myositis, soft tissue edema and cellulitis. There is no evidence of any osteomyelitis or deep loculated abscess or collections. Vascular calcifications noted. Changes of PAD with partial blockage but Patent blood vessels distally. Patient is not responding clinically to Rocephin and by mouth clindamycin. Underlying MRSA has to be considered in this situation. Recommend: Change antibiotics to IV Zosyn and vancomycin. Cleansing of legs from the knee down to the toes and topical application of skin moisturizers. Will follow this patient during her hospitalization and make recommendations as her condition evolves. Status: Acute Priority: High Comment: NO EVIDENCE OF SKIN BREAKDOWN / OR DISCRETE SKIN AND SUB CUTNEOUS LESION Qualifiers: Myositis type: unspecified type Qualified Code(s): M60.862 - Other myositis , left lower leg
[2018-05-05] MEDS: PIPERACILLIN SODIUM/TAZOBACTAM 2.25 GM in DEXTROSE 5% IN WATER 50 ML IV SCH ×3 (16:26→23:40)
[2018-05-05] MEDS: VANCOMYCIN 1,000 MG in 0.9 % SODIUM CHLORIDE 250 ML IV SCH (17:32)
[2018-05-05 21:12] LABS: Appearance,Urine CLEAR; Bacteria,Urine 0 /hpf (0); Bilirubin,Urine NEG (NEG); Color,Urine STRAW; Glucose,Urine (UA) NEGATIVE (NEG); Leukocyte Esterase,Urine NEG /uL (NEG); Protein,Urine NEG (NEG); Specific Gravity,Urine 1.012 (1.000-1.035); Urine Blood 0.2 mg/dL (<0.03); Urine RBC < 1 /hpf (0-1); Urine Squamous Epithelial Cell 1 /hpf (0-4); Urine WBC 1 /hpf (0-4); Urobilinogen,Urine NEG (NEG)
[2018-05-05] MEDS: SENNOSIDES/DOCUSATE SODIUM 1 TAB TABLET PO SCH (23:25)
[2018-05-06 05:50] LABS: Mean Cell Volume 92.1 fL (80.0-100.0); Mean Corpuscular HGB Conc 33.8 g/dL (31.0-36.0); Mean Corpuscular Hemoglobin 31.1 pg (26.0-34.0); Platelet Count 212 K/mcL (140-440); RBC 3.87 M/mcL (4.00-5.20); Red Cell Distribution Width 13.6 % (11.5-14.5)
[2018-05-06] MEDS: FUROSEMIDE 20 MG/2 ML VIAL IV SCH ×3 (05:51→21:19)
[2018-05-06] MEDS: PIPERACILLIN SODIUM/TAZOBACTAM 2.25 GM in DEXTROSE 5% IN WATER 50 ML IV SCH ×4 (05:53→23:43)
[2018-05-06] MEDS: 0.9 % SODIUM CHLORIDE 10 ML SYRINGE IV SCH ×3 (05:55→21:19)
[2018-05-06 06:17] LABS: ALT/SGPT 31 U/l (0-40); Albumin 2.9 gm/dL (3.2-5.2); Albumin/Globulin Ratio 0.7 (1.0-2.3); Alkaline Phosphatase 85 U/L (39-117); Bilirubin,Direct < 0.2 mg/dL (0.0-0.3); Blood Urea Nitrogen 18 mg/dl (8-23); Gamma Glutamyl Transpeptidase 22 U/L (5-36); Uric Acid 5.2 mg/dL (2.5-8.0)
[2018-05-06 06:51] LABS: Band Neutrophils % 24 % (0-10); Lymphocytes % 11 % (15-49); Monocytes % (Manual) 4 % (1-12); Platelet Estimate NORMAL (NORMAL); RBC Morphology NORMAL (NORMAL); Segmented Neutrophils % 61 % (38-78); Toxic Granulation 1+ (NONE SEEN)
--- NOTE | 2018-05-06 08:12 | XRay Report ---
HISTORY: Follow-up pneumonia with fever and nausea FINDINGS: The lungs are now clear. The vague infiltrates seen on the prior study done on 05/03/18 have resolved. The heart is borderline enlarged but has diminished in size. The aorta is tortuous. No adenopathy is detected and there is no pleural effusion. IMPRESSION: Resolved pulmonary infiltrates Improved cardiomegaly Interpreted and Authenticated by: Hiro Lay 05/06/18
[2018-05-06] MEDS: HEPARIN 5,000 UNIT/ML VIAL SQ SCH ×2 (09:05→21:19)
[2018-05-06] MEDS: DOCUSATE SODIUM 100 MG CAPSULE PO SCH ×2 (09:05→20:16)
[2018-05-06] MEDS: MULTIVIT,THER IRON,CA,FA & MIN 1 TABLET PO SCH (09:05)
[2018-05-06] MEDS: VANCOMYCIN 1,000 MG in 0.9 % SODIUM CHLORIDE 250 ML IV SCH (09:05)
--- NOTE | 2018-05-06 10:45 | General Surgery Progress Note ---
Subjective Patient reports: no new complaints (Seen on rounds along with nursing staff. Uneventful night. Walking well with walker. ) Narrative: Note initiated : 05/06/18 at 10:43 am Service Date, if different from initiated Date: [] Patient: Lynette Salamanca 82 y/o F admitted on 05/04/18 for fever, nausea. Chief Complaint: [] Objective Temp Pulse Resp BP Pulse Ox 98.1 F 77 16 132/71 95 05/06/18 06:32 05/06/18 03:00 05/06/18 06:32 05/06/18 06:32 05/06/18 06:32 AVSS. No changes YORDY. L/E: Resolving inflammatory changes LEFT lower leg. Labs. Creatinine N. WBC trending down. Hct stable. - Additional Data Intake & Output - Last 24 hours: Intake & Output 05/04/18 05/05/18 05/06/18 05/07/18 05:59 05:59 05:59 05:59 Intake Total 250 / 250 2755 / 2755 854 / 854 50 / 50 Output Total 0 / 0 50 / 50 1950 / 1950 400 / 400 Balance 250 / 250 2705 / 2705 -1096 / -1096 -350 / -350 Weight 155 lb 163 lb 8 oz 157 lb - Labs 05/06/18 04:27 05/06/18 04:27 Diabetes panel 05/06/18 Range/Units 04:27 Sodium 137 (133-145) mmol/L Potassium 3.3 (3.3-5.1) mmol/L Chloride 97 (96-108) mmol/L Carbon Dioxide 26 (22-30) mmol/L BUN 18 (8-23) mg/dl Creatinine 1.0 (0.6-1.1) mg/dl Glucose 97 (70-105) mg/dL Calcium 8.7 (8.6-10.4) mg/dl AST 42 H (0-37) U/l ALT 31 (0-40) U/l Alkaline Phosphatase 85 (39-117) U/L Total Protein 6.9 (5.9-8.4) gm/dL Albumin 2.9 L (3.2-5.2) gm/dL Triglycerides 175 H (<150) mg/dl Calcium panel 05/06/18 Range/Units 04:27 Calcium 8.7 (8.6-10.4) mg/dl Phosphorus 3.3 (2.7-4.5) mg/dL Albumin 2.9 L (3.2-5.2) gm/dL Pituitary panel 05/06/18 Range/Units 04:27 Sodium 137 (133-145) mmol/L Potassium 3.3 (3.3-5.1) mmol/L Chloride 97 (96-108) mmol/L Carbon Dioxide 26 (22-30) mmol/L BUN 18 (8-23) mg/dl Creatinine 1.0 (0.6-1.1) mg/dl Glucose 97 (70-105) mg/dL Calcium 8.7 (8.6-10.4) mg/dl Adrenal panel 05/06/18 Range/Units 04:27 Sodium 137 (133-145) mmol/L Potassium 3.3 (3.3-5.1) mmol/L Chloride 97 (96-108) mmol/L Carbon Dioxide 26 (22-30) mmol/L BUN 18 (8-23) mg/dl Creatinine 1.0 (0.6-1.1) mg/dl Glucose 97 (70-105) mg/dL Calcium 8.7 (8.6-10.4) mg/dl Total Bilirubin 0.3 (0.0-1.0) mg/dL AST 42 H (0-37) U/l ALT 31 (0-40) U/l Alkaline Phosphatase 85 (39-117) U/L Total Protein 6.9 (5.9-8.4) gm/dL Albumin 2.9 L (3.2-5.2) gm/dL Assessment and Plan (1) Myositis of left lower leg Problem details: NO EVIDENCE OF SKIN BREAKDOWN / OR DISCRETE SKIN AND SUB CUTNEOUS LESION Status: Acute Current Visit: Yes - Time Spent With Patient Total time spent is greater than 50% in coordination of care (as documented) at patient's floor/unit and/or counseling patient: Assessment: Satisfactory progress. Responding clinically to current treatment. Plan: Continue treatment. Encourage ambulation. Following patient. 15 - 24 minutes
--- NOTE | 2018-05-06 14:23 | Internal Med Progress Note ---
Medical - PN: Subj Patient information: Note initiated : 05/06/18 at 2:19 pm Service Date, if different from initiated Date: [] Patient: Lynette Salamanca 82 y/o F admitted on 05/04/18 for fever, nausea. Chief Complaint: [] Interval history: 05/04-patient admitted with left lower extremity lymphangitis/cellulitis likely group B streptococcus. Rapidly progressing and hence started on clindamycin/ Rocephin. Await blood cultures. Continue close monitoring, lactic acid trending. Current lactic acid 2.6. On crystalloids. 05/05-wound care consulted. White count at 15.5. 47% bands. Worsening lower extremity redness. Wound care recommends CT scan to rule out osteomyelitis. Blood cultures negative so far. Antibiotic spectrum extended with clindamycin along with Rocephin. Patient however feeling better than previous day and able to bear weight and ambulate. Start aggressive diuresis in light of significant lymphedema. 05/06-patient doing a lot better. Improve lymphedema/redness and pain. CT scan lower extremity shows significant cellulitis/myositis. White count downtrending to 13.1 with downtrending bandemia from afebrile. Blood cultures negative so far. Able to bear weight and ongoing physical therapy. Wound care ongoing. Antibiotics escalated to Zosyn/vancomycin. Possible discharge in 48 hours if continues to improve clinically. Will need outpatient IV antibiotics. No family at bedside. Diuresing well - Constitutional Vitals: Vital Signs Temp Pulse Resp BP Pulse Ox 98.4 F 77 16 116/69 98 05/06/18 11:00 05/06/18 03:00 05/06/18 11:00 05/06/18 11:00 05/06/18 11:00 Period Temp Pulse Resp BP Sys/Tobar Pulse Ox Last 24 Hr 97.8 F-98.8 F 72-81 - 116-144/63-72 91-98 Intake and Output 05/06/18 05/06/18 05/06/18 05:59 13:59 21:59 Intake Total 450 / 450 300 / 300 Output Total 1200 / 1200 400 / 400 Balance -750 / -750 -100 / -100 Intake & Output: Intake & Output 05/06/18 05/06/18 05/06/18 05:59 13:59 21:59 Intake Total 450 / 450 300 / 300 Output Total 1200 / 1200 400 / 400 Balance -750 / -750 -100 / -100 Intake: IV 100 / 100 300 / 300 Zosyn 2.25 gm In Dextrose 5% in 100 / 100 50 / 50 Water 50 ml @ 100 mls/hr IV Q6H [place] Rx#:[id number] Vancomycin 1,000 mg In Sodium 250 / 250 Chloride 0.9% 250 ml @ 250 mls/ hr IV Q24H [place] Rx#:[id number] Oral 350 / 350 Output: Void Amount 400 / 400 Urine/Stool Mix 1200 / 1200 Other: Urine Appearance Clear Clear Urine Color Pale Pale Straw Urine Odor Normal Normal # Voids 1 General appearance: no acute distress Exam: Alert oriented nonlabored breathing Left lower extremity swelling/redness much improved No significant abdominal pain Medical - PN: Obj Da - Labs CBC & Chem 7: 05/06/18 04:27 05/06/18 04:27 Labs: Abnormal Lab Results 05/06/18 05/06/18 05/05/18 04:27 04:27 19:20 WBC 13.1 H RBC 3.87 L Hgb Hct 35.6 L MPV Gran % Lymph % (Auto) Lymph # (Auto) Seg Neutrophils % Band Neutrophils % 24 H Lymphocytes % 11 L WBC Morphology Abnorm A Toxic Granulation 1+ A ESR VBG Lactic Acid Sodium Chloride Carbon Dioxide Anion Gap BUN Glucose Calcium Phosphorus AST 42 H Lactate Dehydrogenase 336 H C-Reactive Protein Albumin 2.9 L Globulin 4.0 H Albumin/Globulin Ratio 0.7 L Triglycerides 175 H Urine Protein Urine Occult Blood 0.2 A Urine RBC 05/05/18 05/05/18 05/04/18 04:36 04:36 08:53 WBC 15.4 H RBC 3.77 L Hgb 11.7 L Hct 34.8 L MPV Gran % Lymph % (Auto) Lymph # (Auto) Seg Neutrophils % Band Neutrophils % 47 H Lymphocytes % 6 L WBC Morphology Toxic Granulation ESR VBG Lactic Acid 2.6 H Sodium Chloride Carbon Dioxide Anion Gap BUN 25 H Glucose Calcium 8.5 L Phosphorus AST 43 H Lactate Dehydrogenase 296 H C-Reactive Protein Albumin 2.8 L Globulin Albumin/Globulin Ratio 0.8 L Triglycerides Urine Protein Urine Occult Blood Urine RBC 05/04/18 05/04/18 05/04/18 01:18 01:18 01:18 WBC RBC 3.67 L Hgb 11.2 L Hct 33.6 L MPV 7.2 L Gran % Lymph % (Auto) Lymph # (Auto) Seg Neutrophils % 81 H Band Neutrophils % 15 H Lymphocytes % 3 L WBC Morphology Toxic Granulation ESR VBG Lactic Acid Sodium 148 H Chloride 109 H Carbon Dioxide 19 L Anion Gap 20.0 H BUN Glucose 124 H Calcium Phosphorus 2.5 L AST Lactate Dehydrogenase 305 H C-Reactive Protein 2.9 H Albumin 3.1 L Globulin Albumin/Globulin Ratio 0.9 L Triglycerides Urine Protein Urine Occult Blood Urine RBC 05/04/18 05/03/18 05/03/18 01:18 21:30 20:50 WBC RBC Hgb Hct MPV Gran % Lymph % (Auto) Lymph # (Auto) Seg Neutrophils % Band Neutrophils % Lymphocytes % WBC Morphology Toxic Granulation ESR 46 H VBG Lactic Acid Sodium Chloride Carbon Dioxide Anion Gap BUN Glucose 116 H Calcium Phosphorus AST Lactate Dehydrogenase C-Reactive Protein Albumin Globulin 3.8 H Albumin/Globulin Ratio 0.9 L Triglycerides Urine Protein 30 A Urine Occult Blood Urine RBC 2 H 05/03/18 20:50 WBC RBC Hgb Hct MPV 7.0 L Gran % 93.0 H Lymph % (Auto) 3.5 L Lymph # (Auto) 0.3 L Seg Neutrophils % Band Neutrophils % Lymphocytes % WBC Morphology Toxic Granulation ESR VBG Lactic Acid Sodium Chloride Carbon Dioxide Anion Gap BUN Glucose Calcium Phosphorus AST Lactate Dehydrogenase C-Reactive Protein Albumin Globulin Albumin/Globulin Ratio Triglycerides Urine Protein Urine Occult Blood Urine RBC Meds: Medications Acetaminophen (Tylenol) 650 mg PO Q4-6HP PRN PRN Reason: PAIN/FEVER > 101 Last Admin: 05/04/18 21:20 Dose: 650 mg Albuterol/Ipratropium (Duoneb) 3 ml NEB Q4HP PRN PRN Reason: Shortness Of Breath Or Wheezing Docusate Sodium (Colace) 100 mg PO BID [facility] Last Admin: 05/06/18 09:05 Dose: Not Given Furosemide (Lasix) 20 mg IV Q8 [facility] Last Admin: 05/06/18 05:51 Dose: 20 mg Heparin Sodium (Porcine) (Heparin) 5,000 unit SQ Q12 [facility] Last Admin: 05/06/18 09:05 Dose: 5,000 unit Magnesium Sulfate (Magnesium Sulfate) 2 gm in 50 mls @ 50 mls/hr IV UD PRN PRN Reason: MG = or < 1.7 Acetaminophen (Ofirmev) 1,000 mg in 100 mls @ 200 mls/hr IV Q6HP PRN PRN Reason: PAIN/FEVER > 101 Piperacillin Sod/Tazobactam (Sod 2.25 gm/ Dextrose) 50 mls @ 100 mls/hr IV Q6H [facility] Last Admin: 05/06/18 12:02 Dose: 100 mls/hr Vancomycin HCl 1,000 mg/ (Sodium Chloride) 250 mls @ 250 mls/hr IV Q24H [facility] Last Infusion: 05/06/18 12:03 Dose: Infused Iron Carb/Multivit/[place]/Folic Acid (Multivitamin W/Minerals) 1 tab PO DAILY [facility] Last Admin: 05/06/18 09:05 Dose: 1 tab Ondansetron HCl (Zofran) 4 mg IV Q4-6HP PRN PRN Reason: Nausea And Vomiting Potassium Chloride (Klor-Con) 40 meq PO DAILYP PRN PRN Reason: K+ < 3.5 Senna/Docusate Sodium (Senna Plus Tablet) 1 tab PO HS [facility] Last Admin: 05/05/18 23:25 Dose: Not Given Sodium Chloride (Saline Flush) 10 ml IV Q8 [facility] Last Admin: 05/06/18 12:03 Dose: 10 ml Vancomycin HCl (Vancomycin Per Pharmacy) 1 order IV [facility] Medical - PN: A/P - Time Spent With Patient Total time spent is greater than 50% in coordination of care (as documented) at patient's floor/unit and/or counseling patient: 25 - 35 minutes (1) Cellulitis of leg without foot, left Status: Acute Assessment and plan: * Severe sepsis with 47% bandemia and leukocytosis over 15,000. Clinically improving with antibiotic escalation to Zosyn and vancomycin. Ongoing wound care. * Cellulitis with lymphangitis left lower extremity-clinically improving with diuresis. CT scan and no evidence of osteomyelitis however myositis/cellulitis noted. Wound care on board. Continue PT/limb elevation * Left calf swelling and pain -secondary to above. Dopplers negative for DVT. Continue diuresis/limb elevation to improve lymphedema * History of lung mass-managed outpatient by Dr. Osborne oncology. Message left for oncology. Have not received a call back * Full code * Prophylaxis heparin Plan * Continue diuresis * Continue Zosyn vancomycin * Wound care * Pain management * Possible discharge in 48 hours with outpatient IV antibiotics Current Visit: Yes Medical - PN: Qual - VTE Deep Vein Thrombosis/Pulmonary Embolism Present on Admission: No
[2018-05-06] MEDS: SENNOSIDES/DOCUSATE SODIUM 1 TAB TABLET PO SCH (20:17)
[2018-05-06] MEDS: ACETAMINOPHEN 325 MG TABLET PO PRN (21:18)
[2018-05-07 06:02] LABS: Prealbumin 8.2 mg/dl (20-40)
[2018-05-07] MEDS: 0.9 % SODIUM CHLORIDE 10 ML SYRINGE IV SCH ×3 (06:11→20:06)
[2018-05-07] MEDS: PIPERACILLIN SODIUM/TAZOBACTAM 2.25 GM in DEXTROSE 5% IN WATER 50 ML IV SCH ×4 (06:11→23:39)
[2018-05-07 06:19] LABS: Mean Cell Volume 92.6 fL (80.0-100.0); Mean Corpuscular Hemoglobin 30.5 pg (26.0-34.0); Platelet Count 213 K/mcL (140-440); RBC 3.87 M/mcL (4.00-5.20); Red Cell Distribution Width 13.5 % (11.5-14.5)
[2018-05-07 06:21] LABS: ALT/SGPT 24 U/l (0-40); Albumin 2.9 gm/dL (3.2-5.2); Albumin/Globulin Ratio 0.8 (1.0-2.3); Alkaline Phosphatase 98 U/L (39-117); Bilirubin,Direct < 0.2 mg/dL (0.0-0.3); Blood Urea Nitrogen 13 mg/dl (8-23); Gamma Glutamyl Transpeptidase 20 U/L (5-36); Uric Acid 4.4 mg/dL (2.5-8.0)
[2018-05-07 06:54] LABS: Band Neutrophils % 11 % (0-10); Eosinophils % (Manual) 2 % (0-7); Lymphocytes % 13 % (15-49); Metamyelocytes % 1 % (0-0); Monocytes % (Manual) 9 % (1-12); Platelet Estimate NORMAL (NORMAL); RBC Morphology NORMAL (NORMAL); Segmented Neutrophils % 63 % (38-78)
[2018-05-07] MEDS ORDERED: POTASSIUM CHLORIDE 20 MEQ TABLET PO ONE ×3 (07:45→12:00)
[2018-05-07] MEDS: FUROSEMIDE 20 MG/2 ML VIAL IV SCH (07:56)
[2018-05-07] MEDS: HEPARIN 5,000 UNIT/ML VIAL SQ SCH ×2 (08:06→20:06)
[2018-05-07] MEDS: MULTIVIT,THER IRON,CA,FA & MIN 1 TABLET PO SCH (08:06)
[2018-05-07] MEDS: DOCUSATE SODIUM 100 MG CAPSULE PO SCH ×2 (08:06→20:06)
[2018-05-07] MEDS ORDERED: FUROSEMIDE 20 MG/2 ML VIAL IV ONE (08:30)
--- NOTE | 2018-05-07 09:24 | General Surgery Progress Note ---
Subjective Patient reports: feels better, tolerating a regular diet, voiding w/o difficulty , bowel movement, fever (100.3 F. ), other (Loose stools. every 2 to 3 hrs. NO blood) Narrative: Note initiated : 05/07/18 at 9:21 am Service Date, if different from initiated Date: [] Patient: Lynette Salamanca 82 y/o F admitted on 05/04/18 for fever, nausea. Chief Complaint: [] Objective Temp Pulse Resp BP Pulse Ox 100.3 F H 68 20 153/72 92 05/07/18 08:04 05/07/18 03:00 05/07/18 08:04 05/07/18 08:04 05/07/18 08:04 VSS. No acute changes in YORDY. Ambulating better. Leg swelling has improved, Dull ache at times. Ambulating better. Resolving inflammatory changes. Fungal dermatitis Left lower leg, foot and between toes. WBC down to NORMAL . K 2.9 - Additional Data Intake & Output - Last 24 hours: Intake & Output 05/05/18 05/06/18 05/07/18 05/08/18 05:59 05:59 05:59 05:59 Intake Total 2755 / 2755 854 / 854 950 / 950 50 / 50 Output Total 50 / 50 1950 / 1950 2650 / 2650 Balance 2705 / 2705 -1096 / -1096 -1700 / -1700 50 / 50 Weight 163 lb 8 oz 157 lb 155 lb 8 oz - Labs 05/07/18 04:08 05/07/18 04:08 Diabetes panel 05/07/18 Range/Units 04:08 Sodium 140 (133-145) mmol/L Potassium 2.9 L* (3.3-5.1) mmol/L Chloride 98 (96-108) mmol/L Carbon Dioxide 30 (22-30) mmol/L BUN 13 (8-23) mg/dl Creatinine 0.9 (0.6-1.1) mg/dl Glucose 123 H (70-105) mg/dL Calcium 8.6 (8.6-10.4) mg/dl AST 27 (0-37) U/l ALT 24 (0-40) U/l Alkaline Phosphatase 98 (39-117) U/L Total Protein 6.7 (5.9-8.4) gm/dL Albumin 2.9 L (3.2-5.2) gm/dL Triglycerides 164 H (<150) mg/dl Calcium panel 05/07/18 Range/Units 04:08 Calcium 8.6 (8.6-10.4) mg/dl Phosphorus 3.6 (2.7-4.5) mg/dL Albumin 2.9 L (3.2-5.2) gm/dL Pituitary panel 05/07/18 Range/Units 04:08 Sodium 140 (133-145) mmol/L Potassium 2.9 L* (3.3-5.1) mmol/L Chloride 98 (96-108) mmol/L Carbon Dioxide 30 (22-30) mmol/L BUN 13 (8-23) mg/dl Creatinine 0.9 (0.6-1.1) mg/dl Glucose 123 H (70-105) mg/dL Calcium 8.6 (8.6-10.4) mg/dl Adrenal panel 05/07/18 Range/Units 04:08 Sodium 140 (133-145) mmol/L Potassium 2.9 L* (3.3-5.1) mmol/L Chloride 98 (96-108) mmol/L Carbon Dioxide 30 (22-30) mmol/L BUN 13 (8-23) mg/dl Creatinine 0.9 (0.6-1.1) mg/dl Glucose 123 H (70-105) mg/dL Calcium 8.6 (8.6-10.4) mg/dl Total Bilirubin 0.3 (0.0-1.0) mg/dL AST 27 (0-37) U/l ALT 24 (0-40) U/l Alkaline Phosphatase 98 (39-117) U/L Total Protein 6.7 (5.9-8.4) gm/dL Albumin 2.9 L (3.2-5.2) gm/dL Assessment and Plan (1) Myositis of left lower leg Problem details: NO EVIDENCE OF SKIN BREAKDOWN / OR DISCRETE SKIN AND SUB CUTNEOUS LESION Status: Acute Current Visit: Yes - Time Spent With Patient Total time spent is greater than 50% in coordination of care (as documented) at patient's floor/unit and/or counseling patient: Assessment: Satisfactory resolution of LEFT leg dermatitis and myositis. Responding well to change in antibiotics. Hypokalemia on K supplement. Loose stool : R/O C diff colitis. Plan: Buttermilk PO 30 ML t i d. Antifungal creme to LEFT leg from calf to toes and in between toes. NHAN bandage to Left foot and lower leg as needed. IF discharged follow up at wound center in ONE week. 15 - 24 minutes
[2018-05-07] MEDS: VANCOMYCIN 1,000 MG in 0.9 % SODIUM CHLORIDE 250 ML IV SCH (10:22)
--- NOTE | 2018-05-07 10:39 | Internal Med Progress Note ---
Medical - PN: Subj Patient information: Note initiated : 05/07/18 at 10:37 am Service Date, if different from initiated Date: [] Patient: Lynette Salamanca 82 y/o F admitted on 05/04/18 for fever, nausea. Chief Complaint: [] Interval history: 05/04-patient admitted with left lower extremity lymphangitis/cellulitis likely group B streptococcus. Rapidly progressing and hence started on clindamycin/ Rocephin. Await blood cultures. Continue close monitoring, lactic acid trending. Current lactic acid 2.6. On crystalloids. 05/05-wound care consulted. White count at 15.5. 47% bands. Worsening lower extremity redness. Wound care recommends CT scan to rule out osteomyelitis. Blood cultures negative so far. Antibiotic spectrum extended with clindamycin along with Rocephin. Patient however feeling better than previous day and able to bear weight and ambulate. Start aggressive diuresis in light of significant lymphedema. 05/06-patient doing a lot better. Improve lymphedema/redness and pain. CT scan lower extremity shows significant cellulitis/myositis. White count downtrending to 13.1 with downtrending bandemia from afebrile. Blood cultures negative so far. Able to bear weight and ongoing physical therapy. Wound care ongoing. Antibiotics escalated to Zosyn/vancomycin. Possible discharge in 48 hours if continues to improve clinically. Will need outpatient IV antibiotics. No family at bedside. Diuresing well 05/07-patient clinically improving. Improved lower extremity redness pain. Improved leukocytosis down to 9.9 with resolving bandemia. Fever 100.3 this morning. Potassium down to 2.9 on aggressive potassium replacement 120 mg. Continue diuresis. Possible discharge in 24-48 hours with outpatient antibiotics. Blood cultures positive for gram-positive bacilli. Will target antibiotics through May 15. - Constitutional Vitals: Vital Signs Temp Pulse Resp BP Pulse Ox 100.3 F H 68 20 153/72 92 05/07/18 08:04 05/07/18 03:00 05/07/18 08:04 05/07/18 08:04 05/07/18 08:04 Period Temp Pulse Resp BP Sys/Tobar Pulse Ox Last 24 Hr 97.9 F-100.3 F 68-80 14-20 116-157/67-79 92-98 Intake and Output 05/06/18 05/07/18 05/07/18 21:59 05:59 13:59 Intake Total 100 / 100 550 / 550 850 / 850 Output Total 1600 / 1600 650 / 650 Balance -1500 / -1500 -100 / -100 850 / 850 Weight 155 lb 8 oz Intake & Output: Intake & Output 05/06/18 05/07/18 05/07/18 21:59 05:59 13:59 Intake Total 100 / 100 550 / 550 850 / 850 Output Total 1600 / 1600 650 / 650 Balance -1500 / -1500 -100 / -100 850 / 850 Weight 155 lb 8 oz Intake: IV 100 / 100 50 / 50 50 / 50 Zosyn 2.25 gm In Dextrose 5% in 100 / 100 50 / 50 50 / 50 Water 50 ml @ 100 mls/hr IV Q6H [facility] Rx#:[id number] Oral 0 / 0 500 / 500 800 / 800 Output: Void Amount 650 / 650 Urine/Stool Mix 1600 / 1600 Other: Meal Breakfast Percent of Meal Consumed 100% Feeding Ability Independent Stool Size Small Small Stool Color Brown Brown Stool Consistency Loose Loose # Voids 1 # Bowel Movements 1 General appearance: no acute distress Exam: Improved redness/tenderness left lower extremity. Improving lymphedema. Nonlabored breathing No anxiety Alert oriented Medical - PN: Obj Da - Labs CBC & Chem 7: 05/07/18 04:08 05/07/18 04:08 Labs: Abnormal Lab Results 05/07/18 05/07/18 05/06/18 04:08 04:08 04:27 WBC RBC 3.87 L Hgb 11.8 L Hct 35.9 L MPV Seg Neutrophils % Band Neutrophils % 11 H Lymphocytes % 13 L Metamyelocytes % 1 H WBC Morphology Toxic Granulation Sodium Potassium 2.9 L* Chloride Carbon Dioxide Anion Gap BUN Glucose 123 H Calcium Phosphorus AST 42 H Lactate Dehydrogenase 305 H 336 H Albumin 2.9 L 2.9 L Globulin 3.8 H 4.0 H Albumin/Globulin Ratio 0.8 L 0.7 L Prealbumin 8.2 L Triglycerides 164 H 175 H Urine Occult Blood 05/06/18 05/05/18 05/05/18 04:27 19:20 04:36 WBC 13.1 H RBC 3.87 L Hgb Hct 35.6 L MPV Seg Neutrophils % Band Neutrophils % 24 H Lymphocytes % 11 L Metamyelocytes % WBC Morphology Abnorm A Toxic Granulation 1+ A Sodium Potassium Chloride Carbon Dioxide Anion Gap BUN 25 H Glucose Calcium 8.5 L Phosphorus AST 43 H Lactate Dehydrogenase 296 H Albumin 2.8 L Globulin Albumin/Globulin Ratio 0.8 L Prealbumin Triglycerides Urine Occult Blood 0.2 A 05/05/18 05/04/18 05/04/18 04:36 01:18 01:18 WBC 15.4 H RBC 3.77 L 3.67 L Hgb 11.7 L 11.2 L Hct 34.8 L 33.6 L MPV 7.2 L Seg Neutrophils % 81 H Band Neutrophils % 47 H 15 H Lymphocytes % 6 L 3 L Metamyelocytes % WBC Morphology Toxic Granulation Sodium 148 H Potassium Chloride 109 H Carbon Dioxide 19 L Anion Gap 20.0 H BUN Glucose 124 H Calcium Phosphorus 2.5 L AST Lactate Dehydrogenase 305 H Albumin 3.1 L Globulin Albumin/Globulin Ratio 0.9 L Prealbumin Triglycerides Urine Occult Blood Meds: Medications Acetaminophen (Tylenol) 650 mg PO Q4-6HP PRN PRN Reason: PAIN/FEVER > 101 Last Admin: 05/06/18 21:18 Dose: 650 mg Albuterol/Ipratropium (Duoneb) 3 ml NEB Q4HP PRN PRN Reason: Shortness Of Breath Or Wheezing Docusate Sodium (Colace) 100 mg PO BID [facility] Last Admin: 05/07/18 08:06 Dose: Not Given Furosemide (Lasix) 20 mg IV Q8 [facility] Last Admin: 05/07/18 07:56 Dose: Not Given Heparin Sodium (Porcine) (Heparin) 5,000 unit SQ Q12 [facility] Last Admin: 05/07/18 08:06 Dose: 5,000 unit Magnesium Sulfate (Magnesium Sulfate) 2 gm in 50 mls @ 50 mls/hr IV UD PRN PRN Reason: MG = or < 1.7 Acetaminophen (Ofirmev) 1,000 mg in 100 mls @ 200 mls/hr IV Q6HP PRN PRN Reason: PAIN/FEVER > 101 Piperacillin Sod/Tazobactam (Sod 2.25 gm/ Dextrose) 50 mls @ 100 mls/hr IV Q6H [facility] Last Infusion: 05/07/18 06:50 Dose: Infused Vancomycin HCl 1,500 mg/ (Sodium Chloride) 500 mls @ 333.3 mls/hr IV DAILY [facility] Iron Carb/Multivit/Louann/Folic Acid (Multivitamin W/Minerals) 1 tab PO DAILY [facility] Last Admin: 05/07/18 08:06 Dose: 1 tab Ondansetron HCl (Zofran) 4 mg IV Q4-6HP PRN PRN Reason: Nausea And Vomiting Potassium Chloride (Klor-Con) 40 meq PO DAILYP PRN PRN Reason: K+ < 3.5 Potassium Chloride (Kdur) 40 meq PO ONCE ONE Stop: 05/07/18 12:01 Senna/Docusate Sodium (Senna Plus Tablet) 1 tab PO HS [facility] Last Admin: 05/06/18 20:17 Dose: Not Given Sodium Chloride (Saline Flush) 10 ml IV Q8 [facility] Last Admin: 05/07/18 06:11 Dose: 10 ml Vancomycin HCl (Vancomycin Per Pharmacy) 1 order IV UD [facility] Medical - PN: A/P - Time Spent With Patient Total time spent is greater than 50% in coordination of care (as documented) at patient's floor/unit and/or counseling patient: 25 - 35 minutes (1) Cellulitis of leg without foot, left Status: Acute Assessment and plan: * Severe sepsis with gram-positive bacilli bacteremia clinical improvement with resolution of leukocytosis and bandemia. Stable hemodynamics * Cellulitis with lymphangitis left lower extremity-clinically improving with antibiotics. Continue antibiotics through 05/15. CT scan reveals myositis/ cellulitis. Continue PT/limb elevation/diuresis. Negative Doppler for DVT * Critical hypokalemia-continue replacement with 120 mg of potassium * Mild contraction alkalosis-start Diamox * History of lung mass-managed outpatient by Dr. Henry oncology. Message left for oncology. Have not received a call back * Full code * Prophylaxis heparin Plan * Potassium replacement 120 mg * Repeat BMP 6 PM * Surveillance blood culture * 1 dose Diamox * Continue limb elevation/diuresis * Continue Zosyn vancomycin and de-escalate based on culture results * Discharge in 24-48 hours on IV antibiotics Through 05/15 Current Visit: Yes Medical - PN: Qual - VTE Deep Vein Thrombosis/Pulmonary Embolism Present on Admission: No
[2018-05-07] MEDS ORDERED: acetaZOLAMIDE 250 MG TABLET PO ONE (10:44)
[2018-05-07] MEDS: VANCOMYCIN 1,500 MG in 0.9 % SODIUM CHLORIDE 500 ML IV SCH (10:45)
[2018-05-07 18:30] LABS: Blood Urea Nitrogen 10 mg/dl (8-23)
[2018-05-07] MEDS: SENNOSIDES/DOCUSATE SODIUM 1 TAB TABLET PO SCH (20:06)
[2018-05-07] MEDS: ACETAMINOPHEN 325 MG TABLET PO PRN (20:24)
[2018-05-07] MEDS ORDERED: FUROSEMIDE 20 MG/2 ML VIAL IV SCH (21:00)
[2018-05-08 05:25] LABS: Mean Cell Volume 91.7 fL (80.0-100.0); Mean Corpuscular HGB Conc 33.4 g/dL (31.0-36.0); Mean Corpuscular Hemoglobin 30.6 pg (26.0-34.0); Platelet Count 224 K/mcL (140-440); RBC 3.85 M/mcL (4.00-5.20); Red Cell Distribution Width 13.5 % (11.5-14.5)
[2018-05-08 05:36] LABS: ALT/SGPT 20 U/l (0-40); Albumin 2.8 gm/dL (3.2-5.2); Albumin/Globulin Ratio 0.7 (1.0-2.3); Alkaline Phosphatase 90 U/L (39-117); Bilirubin,Direct < 0.2 mg/dL (0.0-0.3); Blood Urea Nitrogen 12 mg/dl (8-23); Gamma Glutamyl Transpeptidase 23 U/L (5-36); Uric Acid 3.9 mg/dL (2.5-8.0)
[2018-05-08] MEDS: PIPERACILLIN SODIUM/TAZOBACTAM 2.25 GM in DEXTROSE 5% IN WATER 50 ML IV SCH ×4 (05:50→23:22)
[2018-05-08] MEDS: 0.9 % SODIUM CHLORIDE 10 ML SYRINGE IV SCH ×3 (05:50→23:22)
[2018-05-08 05:53] LABS: Prealbumin 7.5 mg/dl (20-40)
[2018-05-08 05:57] LABS: Band Neutrophils % 4 % (0-10); Lymphocytes % 22 % (15-49); Monocytes % (Manual) 14 % (1-12); Platelet Estimate NORMAL (NORMAL); RBC Morphology ABNORM (NORMAL); Rouleaux PRESENT (NONE SEEN); Segmented Neutrophils % 60 % (38-78)
[2018-05-08] MEDS: HEPARIN 5,000 UNIT/ML VIAL SQ SCH ×3 (08:05→19:45)
[2018-05-08] MEDS: MULTIVIT,THER IRON,CA,FA & MIN 1 TABLET PO SCH (08:43)
[2018-05-08] MEDS: VANCOMYCIN 1,500 MG in 0.9 % SODIUM CHLORIDE 500 ML IV SCH (08:43)
[2018-05-08] MEDS: FUROSEMIDE 20 MG/2 ML VIAL IV SCH ×2 (08:43→15:25)
[2018-05-08] MEDS: DOCUSATE SODIUM 100 MG CAPSULE PO SCH ×2 (08:44→19:44)
--- NOTE | 2018-05-08 11:41 | Internal Med Progress Note ---
Medical - PN: Subj Patient information: Note initiated : 05/08/18 at 11:38 am Service Date, if different from initiated Date: [] Patient: Lynette Salamanca 82 y/o F admitted on 05/04/18 for fever, nausea. Chief Complaint: [] Interval history: 05/04-patient admitted with left lower extremity lymphangitis/cellulitis likely group B streptococcus. Rapidly progressing and hence started on clindamycin/ Rocephin. Await blood cultures. Continue close monitoring, lactic acid trending. Current lactic acid 2.6. On crystalloids. 05/05-wound care consulted. White count at 15.5. 47% bands. Worsening lower extremity redness. Wound care recommends CT scan to rule out osteomyelitis. Blood cultures negative so far. Antibiotic spectrum extended with clindamycin along with Rocephin. Patient however feeling better than previous day and able to bear weight and ambulate. Start aggressive diuresis in light of significant lymphedema. 05/06-patient doing a lot better. Improve lymphedema/redness and pain. CT scan lower extremity shows significant cellulitis/myositis. White count downtrending to 13.1 with downtrending bandemia from afebrile. Blood cultures negative so far. Able to bear weight and ongoing physical therapy. Wound care ongoing. Antibiotics escalated to Zosyn/vancomycin. Possible discharge in 48 hours if continues to improve clinically. Will need outpatient IV antibiotics. No family at bedside. Diuresing well 05/07-patient clinically improving. Improved lower extremity redness pain. Improved leukocytosis down to 9.9 with resolving bandemia. Fever 100.3 this morning. Potassium down to 2.9 on aggressive potassium replacement 120 mg. Continue diuresis. Possible discharge in 24-48 hours with outpatient antibiotics. Blood cultures positive for gram-positive bacilli. Will target antibiotics through May 15. 05/08 Pt seen examined, still has pain in the leg, and erythema, pt reports improvement from admission, but the pic since admission show much less erythema. BC is GPC one bottle, pt wbc count is up today, but is afebrile. CT was neg for abscess n admission. will continue with IV vanco and zosyn for now, monitor for response. Pertinent ROS: Denies headache, dizziness Denies chest pain, palpitations Denies cough or shortness of breath Denies abdominal pain, nausea or vomiting. - Constitutional Vitals: Vital Signs Temp Pulse Resp BP Pulse Ox 98 F 70 18 126/64 93 05/08/18 06:33 05/08/18 04:00 05/08/18 06:33 05/08/18 06:33 05/08/18 06:33 Period Temp Pulse Resp BP Sys/Tobar Pulse Ox Last 24 Hr 98 F-99.7 F 70-76 16-18 115-146/58-78 93-96 Intake and Output 05/07/18 05/08/18 05/08/18 21:59 05:59 13:59 Intake Total 720 / 720 200 / 200 170 / 170 Output Total 1150 / 1150 Balance -430 / -430 200 / 200 170 / 170 Weight 151 lb 8 oz Intake & Output: Intake & Output 05/07/18 05/08/18 05/08/18 21:59 05:59 13:59 Intake Total 720 / 720 200 / 200 170 / 170 Output Total 1150 / 1150 Balance -430 / -430 200 / 200 170 / 170 Weight 151 lb 8 oz Intake: IV 100 / 100 50 / 50 50 / 50 Zosyn 2.25 gm In Dextrose 5% in 100 / 100 50 / 50 50 / 50 Water 50 ml @ 100 mls/hr IV Q6H [facility] Rx#:[id number] Oral 620 / 620 150 / 150 120 / 120 Output: Void Amount 150 / 150 Urine/Stool Mix 1000 / 1000 Other: Meal Dinner Breakfast Percent of Meal Consumed 75% 100% Feeding Ability Independent Stool Size Moderate Stool Color Brown Stool Consistency Soft Exam: Constitutional; Afebrile, cooperative, alert, not in distress. Respiratory system: Air Entry equal on both sides, No crackles or wheezing, no rhonchi. CVS- Rate rhythm regular, S1,S2 heard, no gallop, no rub. Abdomen- Soft nontender abdomen, no organomegaly, no tenderness, no guarding or rigidity, [employer]- AOOx3, moving all extremities, no gross focal deficit noted. Medical - PN: Obj Da - Labs CBC & Chem 7: 05/08/18 04:11 05/08/18 04:11 Labs: Abnormal Lab Results 05/08/18 05/08/18 05/07/18 04:11 04:11 17:38 WBC 15.1 H RBC 3.85 L Hgb 11.8 L Hct 35.3 L Band Neutrophils % Lymphocytes % Monocytes % (Manual) 14 H Metamyelocytes % WBC Morphology Toxic Granulation RBC Morphology Abnorm A Rouleaux Present A Sodium 132 L Potassium Chloride 94 L Glucose 119 H 138 H AST Lactate Dehydrogenase 303 H Albumin 2.8 L Globulin 4.1 H Albumin/Globulin Ratio 0.7 L Prealbumin 7.5 L Triglycerides Urine Occult Blood 05/07/18 05/07/18 05/06/18 04:08 04:08 04:27 WBC RBC 3.87 L Hgb 11.8 L Hct 35.9 L Band Neutrophils % 11 H Lymphocytes % 13 L Monocytes % (Manual) Metamyelocytes % 1 H WBC Morphology Toxic Granulation RBC Morphology Rouleaux Sodium Potassium 2.9 L* Chloride Glucose 123 H AST 42 H Lactate Dehydrogenase 305 H 336 H Albumin 2.9 L 2.9 L Globulin 3.8 H 4.0 H Albumin/Globulin Ratio 0.8 L 0.7 L Prealbumin 8.2 L Triglycerides 164 H 175 H Urine Occult Blood 05/06/18 05/05/18 04:27 19:20 WBC 13.1 H RBC 3.87 L Hgb Hct 35.6 L Band Neutrophils % 24 H Lymphocytes % 11 L Monocytes % (Manual) Metamyelocytes % WBC Morphology Abnorm A Toxic Granulation 1+ A RBC Morphology Rouleaux Sodium Potassium Chloride Glucose AST Lactate Dehydrogenase Albumin Globulin Albumin/Globulin Ratio Prealbumin Triglycerides Urine Occult Blood 0.2 A Meds: Medications Acetaminophen (Tylenol) 650 mg PO Q4-6HP PRN PRN Reason: PAIN/FEVER > 101 Last Admin: 05/07/18 20:24 Dose: 650 mg Albuterol/Ipratropium (Duoneb) 3 ml NEB Q4HP PRN PRN Reason: Shortness Of Breath Or Wheezing Docusate Sodium (Colace) 100 mg PO BID [facility] Last Admin: 05/08/18 08:44 Dose: Not Given Furosemide (Lasix) 20 mg IV BIDD [facility] Last Admin: 05/08/18 08:43 Dose: 20 mg Heparin Sodium (Porcine) (Heparin) 5,000 unit SQ Q12 [facility] Last Admin: 05/08/18 09:00 Dose: 5,000 unit Magnesium Sulfate (Magnesium Sulfate) 2 gm in 50 mls @ 50 mls/hr IV UD PRN PRN Reason: MG = or < 1.7 Acetaminophen (Ofirmev) 1,000 mg in 100 mls @ 200 mls/hr IV Q6HP PRN PRN Reason: PAIN/FEVER > 101 Piperacillin Sod/Tazobactam (Sod 2.25 gm/ Dextrose) 50 mls @ 100 mls/hr IV Q6H [facility] Last Admin: 05/08/18 11:21 Dose: 100 mls/hr Vancomycin HCl 1,500 mg/ (Sodium Chloride) 500 mls @ 333.3 mls/hr IV DAILY [facility] Last Admin: 05/08/18 08:43 Dose: 333 mls/hr Iron Carb/Multivit/Tree Expert/Folic Acid (Multivitamin W/Minerals) 1 tab PO DAILY [facility] Last Admin: 05/08/18 08:43 Dose: 1 tab Ondansetron HCl (Zofran) 4 mg IV Q4-6HP PRN PRN Reason: Nausea And Vomiting Potassium Chloride (Klor-Con) 40 meq PO DAILYP PRN PRN Reason: K+ < 3.5 Senna/Docusate Sodium (Senna Plus Tablet) 1 tab PO HS [facility] Last Admin: 05/07/18 20:06 Dose: Not Given Sodium Chloride (Saline Flush) 10 ml IV Q8 [facility] Last Admin: 05/08/18 05:50 Dose: 10 ml Vancomycin HCl (Vancomycin Per Pharmacy) 1 order IV UD [facility] Medical - PN: A/P - Time Spent With Patient Total time spent is greater than 50% in coordination of care (as documented) at patient's floor/unit and/or counseling patient: - Narrative A/P Narrative: A/P Severe sepsis with GPC bacteremia, - Clinically improving, but today had worsening on labs, monitor, bp stable Severe cellulitis- On IV antibiotics, appreciate Help from wound care Hypokalemia- K stable, replace contraction alkalosis- Bicarb stable, monitor for now, no need for diamox at present. h/o lung mass/ followed by oncology dr roberts DVT hep sq Full code * Medical - PN: Qual - VTE Deep Vein Thrombosis/Pulmonary Embolism Present on Admission: No
[2018-05-08] MEDS: SENNOSIDES/DOCUSATE SODIUM 1 TAB TABLET PO SCH (19:44)
[2018-05-08] MEDS: ACETAMINOPHEN 325 MG TABLET PO PRN (19:44)
[2018-05-09] MEDS: ACETAMINOPHEN 325 MG TABLET PO PRN ×3 (04:25→15:28)
[2018-05-09] MEDS: PIPERACILLIN SODIUM/TAZOBACTAM 2.25 GM in DEXTROSE 5% IN WATER 50 ML IV SCH ×3 (05:49→19:02)
[2018-05-09] MEDS: 0.9 % SODIUM CHLORIDE 10 ML SYRINGE IV SCH ×3 (05:49→21:44)
[2018-05-09 06:01] LABS: Mean Cell Volume 91.9 fL (80.0-100.0); Mean Corpuscular HGB Conc 33.4 g/dL (31.0-36.0); Mean Corpuscular Hemoglobin 30.7 pg (26.0-34.0); Platelet Count 265 K/mcL (140-440); Red Cell Distribution Width 13.3 % (11.5-14.5)
[2018-05-09 06:38] LABS: ALT/SGPT 19 U/l (0-40); Albumin 2.7 gm/dL (3.2-5.2); Albumin/Globulin Ratio 0.6 (1.0-2.3); Alkaline Phosphatase 90 U/L (39-117); Bilirubin,Direct < 0.2 mg/dL (0.0-0.3); Blood Urea Nitrogen 14 mg/dl (8-23); Gamma Glutamyl Transpeptidase 22 U/L (5-36); Uric Acid 3.9 mg/dL (2.5-8.0)
[2018-05-09 06:59] LABS: Lymphocytes % 35 % (15-49); Monocytes % (Manual) 13 % (1-12); Platelet Estimate NORMAL (NORMAL); RBC Morphology NORMAL (NORMAL); Segmented Neutrophils % 52 % (38-78)
[2018-05-09] MEDS ORDERED: POTASSIUM CHLORIDE 20 MEQ PACKET PO ONE (07:24)
[2018-05-09] MEDS: HEPARIN 5,000 UNIT/ML VIAL SQ SCH ×2 (07:54→21:40)
[2018-05-09] MEDS: FUROSEMIDE 20 MG/2 ML VIAL IV SCH ×2 (07:55→17:26)
[2018-05-09] MEDS: MULTIVIT,THER IRON,CA,FA & MIN 1 TABLET PO SCH (07:55)
[2018-05-09] MEDS: DOCUSATE SODIUM 100 MG CAPSULE PO SCH ×2 (07:55→21:43)
--- NOTE | 2018-05-09 09:57 | XRay Report ---
CLINICAL INFORMATION: Cellulitis - pain evaluate for osteomyelitis COMPARISON: CT 05/05/2018 FINDINGS: Plate and screws transfix an old solidly unified proximal tibial fracture which is anatomically aligned. No evidence of osteomyelitis or other osseous abnormality. Moderate degenerative changes noted tibiofemoral joint. Patellofemoral joint not visualized. Mild ankle mortise degeneration noted. Diffuse soft tissue swelling appreciated with subdermal calcifications medially and posteriorly. IMPRESSION: 1. No plain film evidence of osteomyelitis. 2. Diffuse soft tissue swelling compatible with cellulitis and possible fasciitis 3. ORIF old proximal tibial fracture which is solid unified in anatomic alignment 4. Moderate degenerative change - tibiofemoral joint Interpreted and Authenticated by: Dago Chavez 05/09/18
[2018-05-09] MEDS: VANCOMYCIN 1,500 MG in 0.9 % SODIUM CHLORIDE 500 ML IV SCH (10:02)
--- NOTE | 2018-05-09 11:40 | Ultrasound Report ---
CLINICAL INFORMATION: Left distal calf erythema and swelling. Evaluate for abscess COMPARISON: None. FINDINGS: In the superior medial periarticular region of the ankle, there is no fluid collection. There is only diffuse inhomogeneous soft tissue thickening compatible with cellulitis/fasciitis. IMPRESSION: Cellulitis/fasciitis, but no discrete abscess is appreciated Interpreted and Authenticated by: Dago Chavez 05/09/18
--- NOTE | 2018-05-09 13:36 | Internal Med Progress Note ---
Medical - PN: Subj Patient information: Note initiated : 05/09/18 at 1:30 pm Service Date, if different from initiated Date: [] Patient: Lynette Salamanca 82 y/o F admitted on 05/04/18 for fever, nausea. Chief Complaint: [] Interval history: 05/04-patient admitted with left lower extremity lymphangitis/cellulitis likely group B streptococcus. Rapidly progressing and hence started on clindamycin/ Rocephin. Await blood cultures. Continue close monitoring, lactic acid trending. Current lactic acid 2.6. On crystalloids. 05/05-wound care consulted. White count at 15.5. 47% bands. Worsening lower extremity redness. Wound care recommends CT scan to rule out osteomyelitis. Blood cultures negative so far. Antibiotic spectrum extended with clindamycin along with Rocephin. Patient however feeling better than previous day and able to bear weight and ambulate. Start aggressive diuresis in light of significant lymphedema. 05/06-patient doing a lot better. Improve lymphedema/redness and pain. CT scan lower extremity shows significant cellulitis/myositis. White count downtrending to 13.1 with downtrending bandemia from afebrile. Blood cultures negative so far. Able to bear weight and ongoing physical therapy. Wound care ongoing. Antibiotics escalated to Zosyn/vancomycin. Possible discharge in 48 hours if continues to improve clinically. Will need outpatient IV antibiotics. No family at bedside. Diuresing well 05/07-patient clinically improving. Improved lower extremity redness pain. Improved leukocytosis down to 9.9 with resolving bandemia. Fever 100.3 this morning. Potassium down to 2.9 on aggressive potassium replacement 120 mg. Continue diuresis. Possible discharge in 24-48 hours with outpatient antibiotics. Blood cultures positive for gram-positive bacilli. Will target antibiotics through May 15. 05/08 Pt seen examined, still has pain in the leg, and erythema, pt reports improvement from admission, but the pic since admission show much less erythema. BC is GPC one bottle, pt wbc count is up today, but is afebrile. CT was neg for abscess n admission. will continue with IV vanco and zosyn for now, monitor for response. 05/09 Patient seen examined no acute overnight issues, feels pain is worse, her lower extermity is more tender and there is some sloughing of the skin, X ray neg for air, USG done neg for abscess, but clinically pt pain is worse, I am not sure how much area was covered by USG looking at the image, I doubt if the entire involved region was covered. Will repeat CT lower extremity with contrast to see if any significant change is present. Pertinent ROS: Denies headache, dizziness Denies chest pain, palpitations Denies cough or shortness of breath Denies abdominal pain, nausea or vomiting. - Constitutional Vitals: Vital Signs Temp Pulse Resp BP Pulse Ox 97.9 F 76 18 133/65 98 05/09/18 11:09 05/09/18 04:00 05/09/18 11:09 05/09/18 11:09 05/09/18 11:09 Period Temp Pulse Resp BP Sys/Tobar Pulse Ox Last 24 Hr 96.8 F-99.5 F 68-77 16-18 121-142/59-69 93-99 Intake and Output 05/08/18 05/09/18 05/09/18 21:59 05:59 13:59 Intake Total 650 / 650 300 / 300 350 / 350 Output Total 1300 / 1300 500 / 500 Balance -650 / -650 300 / 300 -150 / -150 Weight 149 lb 8 oz Intake & Output: Intake & Output 05/08/18 05/09/18 05/09/18 21:59 05:59 13:59 Intake Total 650 / 650 300 / 300 350 / 350 Output Total 1300 / 1300 500 / 500 Balance -650 / -650 300 / 300 -150 / -150 Weight 149 lb 8 oz Intake: IV 50 / 50 50 / 50 50 / 50 Zosyn 2.25 gm In Dextrose 5% in 50 / 50 50 / 50 50 / 50 Water 50 ml @ 100 mls/hr IV Q6H [facility] Rx#:[id number] Oral 600 / 600 250 / 250 300 / 300 Output: Void Amount 300 / 300 Urine/Stool Mix 1000 / 1000 500 / 500 Other: Meal Breakfast Percent of Meal Consumed 100% Feeding Ability Independent Stool Size Small Stool Color Brown Stool Consistency Loose Exam: Constitutional; Afebrile, cooperative, alert, not in distress. Respiratory system: Air Entry equal on both sides, No crackles or wheezing, no rhonchi. CVS- Rate rhythm regular, S1,S2 heard, no gallop, no rub. Abdomen- Soft nontender abdomen, no organomegaly, no tenderness, no guarding or rigidity, [facility] [employer]- AOOx3, moving all extremities, no gross focal deficit noted. Right lower extremity- erythema extending from ankle to knee, tenderness on the posterior aspect, with sloughing of skin. Medical - PN: Obj Da - Labs CBC & Chem 7: 05/09/18 04:21 05/09/18 04:21 Labs: Abnormal Lab Results 05/09/18 05/09/18 05/08/18 04:21 04:21 04:11 WBC 12.3 H RBC 3.90 L Hgb Hct 35.8 L Band Neutrophils % Lymphocytes % Monocytes % (Manual) 13 H Metamyelocytes % RBC Morphology Rouleaux Sodium Potassium Chloride Glucose 110 H 119 H Lactate Dehydrogenase 295 H 303 H Albumin 2.7 L 2.8 L Globulin 4.3 H 4.1 H Albumin/Globulin Ratio 0.6 L 0.7 L Prealbumin 7.5 L Triglycerides 155 H 05/08/18 05/07/18 05/07/18 04:11 17:38 04:08 WBC 15.1 H RBC 3.85 L Hgb 11.8 L Hct 35.3 L Band Neutrophils % Lymphocytes % Monocytes % (Manual) 14 H Metamyelocytes % RBC Morphology Abnorm A Rouleaux Present A Sodium 132 L Potassium 2.9 L* Chloride 94 L Glucose 138 H 123 H Lactate Dehydrogenase 305 H Albumin 2.9 L Globulin 3.8 H Albumin/Globulin Ratio 0.8 L Prealbumin 8.2 L Triglycerides 164 H 05/07/18 04:08 WBC RBC 3.87 L Hgb 11.8 L Hct 35.9 L Band Neutrophils % 11 H Lymphocytes % 13 L Monocytes % (Manual) Metamyelocytes % 1 H RBC Morphology Rouleaux Sodium Potassium Chloride Glucose Lactate Dehydrogenase Albumin Globulin Albumin/Globulin Ratio Prealbumin Triglycerides Meds: Medications Acetaminophen (Tylenol) 650 mg PO Q4-6HP PRN PRN Reason: PAIN/FEVER > 101 Last Admin: 05/09/18 10:37 Dose: 650 mg Albuterol/Ipratropium (Duoneb) 3 ml NEB Q4HP PRN PRN Reason: Shortness Of Breath Or Wheezing Docusate Sodium (Colace) 100 mg PO BID [place] Last Admin: 05/09/18 07:55 Dose: Not Given Furosemide (Lasix) 20 mg IV BIDD [facility] Last Admin: 05/09/18 07:55 Dose: 20 mg Heparin Sodium (Porcine) (Heparin) 5,000 unit SQ Q12 [facility] Last Admin: 05/09/18 07:54 Dose: 5,000 unit Magnesium Sulfate (Magnesium Sulfate) 2 gm in 50 mls @ 50 mls/hr IV UD PRN PRN Reason: MG = or < 1.7 Acetaminophen (Ofirmev) 1,000 mg in 100 mls @ 200 mls/hr IV Q6HP PRN PRN Reason: PAIN/FEVER > 101 Piperacillin Sod/Tazobactam (Sod 2.25 gm/ Dextrose) 50 mls @ 100 mls/hr IV Q6H [facility] Last Infusion: 05/09/18 06:20 Dose: Infused Vancomycin HCl 1,500 mg/ (Sodium Chloride) 500 mls @ 333.3 mls/hr IV DAILY [facility] Last Admin: 05/09/18 10:02 Dose: 333 mls/hr Iron Carb/Multivit/[place]/Folic Acid (Multivitamin W/Minerals) 1 tab PO DAILY [facility] Last Admin: 05/09/18 07:55 Dose: 1 tab Ondansetron HCl (Zofran) 4 mg IV Q4-6HP PRN PRN Reason: Nausea And Vomiting Potassium Chloride (Klor-Con) 40 meq PO DAILYP PRN PRN Reason: K+ < 3.5 Senna/Docusate Sodium (Senna Plus Tablet) 1 tab PO HS [facility] Last Admin: 05/08/18 19:44 Dose: Not Given Sodium Chloride (Saline Flush) 10 ml IV Q8 [facility] Last Admin: 05/09/18 05:49 Dose: 10 ml Vancomycin HCl (Vancomycin Per Pharmacy) 1 order IV [facility] [place] Medical - PN: A/P - Time Spent With Patient Total time spent is greater than 50% in coordination of care (as documented) at patient's floor/unit and/or counseling patient: - Narrative A/P Narrative: A/P Severe sepsis with GPC bacteremia, - Clinically improving, wbc trending down again. Severe cellulitis- On IV antibiotics, appreciate Help from wound care, will repeat CT today and see if there is any collection, or worsening of picture. conintue on IV vancomycin and IV zosyn. Need for Surgical Debridement? Hypokalemia- K stable, replace contraction alkalosis- Bicarb stable, monitor for now, no need for diamox at present. h/o lung mass/ followed by oncology dr roberts DVT hep sq Full code * Medical - PN: Qual - VTE Deep Vein Thrombosis/Pulmonary Embolism Present on Admission: No
[2018-05-09] MEDS ORDERED: IOPAMIDOL 100 ML BOTTLE IV ONE (13:37)
--- NOTE | 2018-05-09 15:42 | Cat Scan Report ---
CLINICAL INFORMATION: left lower leg, worsening cellulitis COMPARISON: 05/05/2018. TECHNIQUE: 0.625 helical slices were obtained the femoral condyle through the entire lower leg including the ankle and foot. Following reconstruction, 2.5 minutes sagittal, coronal axial reformatted images were processed and reviewed at bone and soft tissue windows. FINDINGS: Diffuse cellulitis, predominantly in the subdermal region, has improved considerably since the comparison CT four days ago. There is no evidence of abscess. The deep compartments including the muscle and fascial planes appear normal - no evidence of associated - guided/myositis. Extensive varicose vein formation seen - as before. Bone windows show no evidence of osteomyelitis. There are scattered regions of trabecular rarefaction in the distal fibula and tibia - as previously seen. Chronic unified fracture through the proximal tibial plateau transfixed by plate and screws shows anatomic alignment. Moderate degenerative change in the tibiofemoral joint with chondrocalcinosis in the menisci seen - as before. There is also moderate patellofemoral degeneration. Foot images show moderate hallux valgus, metatarsus abductus second through fifth hammertoe deformities noted. IMPRESSION: No evidence of osteomyelitis. Cellulitis throughout the calf and foot has improved considerably since the comparison CT four days prior inflammation. Moderate patellofemoral and tibiofemoral degenerative change with chondrocalcinosis in menisci Transfixxed old proximal tibial fracture is solidly unified and anatomically aligned. Interpreted and Authenticated by: Dago Chavez 05/09/18
--- NOTE | 2018-05-09 16:22 | General Surgery Progress Note ---
Subjective Patient reports: still having pain, other (Overall stable, BUT continues with dependent pain and erythema of LEFT lower half of leg.) Narrative: Note initiated : 05/09/18 at 4:17 pm Service Date, if different from initiated Date: [] Patient: Lynette Salamanca 82 y/o F admitted on 05/04/18 for fever, nausea. Chief Complaint: []I saw patient several times during the day. Discussed her situation with nursing staff, family members and Dr. Jerry Hospitalist Physician. Patient has dependent edema, erythema and exacerbation of dermatitis and pain with ambulation. BUT denies fever, chills, diaphoresis, N / V /D cough, CP or SOB. No MILAN or vision changes. Steady when walks. Objective Temp Pulse Resp BP Pulse Ox 98.6 F 76 18 132/68 94 05/09/18 15:58 05/09/18 04:00 05/09/18 15:58 05/09/18 15:58 05/09/18 15:58 AVSS. No acute changes YORDY. L/E. 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 NO ulceration, NO blisters, NO foul odor and NO crepitus. Edema and Erythema and some dependent posterior adherent epidermal slough. NO interval changes in CT Left leg. NO abscess, collections and osteomyelitis. OLD degenerative changes of bone unchanged. - Additional Data Intake & Output - Last 24 hours: Intake & Output 05/07/18 05/08/18 05/09/18 05/10/18 05:59 05:59 05:59 05:59 Intake Total 950 / 950 2390 / 2390 1670 / 1670 850 / 850 Output Total 2650 / 2650 1450 / 1450 1300 / 1300 500 / 500 Balance -1700 / -1700 940 / 940 370 / 370 350 / 350 Weight 155 lb 8 oz 151 lb 8 oz 149 lb 8 oz - Labs 05/09/18 04:21 05/09/18 04:21 Diabetes panel 05/09/18 Range/Units 04:21 Sodium 138 (133-145) mmol/L Potassium 3.4 (3.3-5.1) mmol/L Chloride 102 (96-108) mmol/L Carbon Dioxide 24 (22-30) mmol/L BUN 14 (8-23) mg/dl Creatinine 0.9 (0.6-1.1) mg/dl Glucose 110 H (70-105) mg/dL Calcium 8.8 (8.6-10.4) mg/dl AST 20 (0-37) U/l ALT 19 (0-40) U/l Alkaline Phosphatase 90 (39-117) U/L Total Protein 7.0 (5.9-8.4) gm/dL Albumin 2.7 L (3.2-5.2) gm/dL Triglycerides 155 H (<150) mg/dl Calcium panel 05/09/18 Range/Units 04:21 Calcium 8.8 (8.6-10.4) mg/dl Phosphorus 3.6 (2.7-4.5) mg/dL Albumin 2.7 L (3.2-5.2) gm/dL Pituitary panel 05/09/18 Range/Units 04:21 Sodium 138 (133-145) mmol/L Potassium 3.4 (3.3-5.1) mmol/L Chloride 102 (96-108) mmol/L Carbon Dioxide 24 (22-30) mmol/L BUN 14 (8-23) mg/dl Creatinine 0.9 (0.6-1.1) mg/dl Glucose 110 H (70-105) mg/dL Calcium 8.8 (8.6-10.4) mg/dl Adrenal panel 05/09/18 Range/Units 04:21 Sodium 138 (133-145) mmol/L Potassium 3.4 (3.3-5.1) mmol/L Chloride 102 (96-108) mmol/L Carbon Dioxide 24 (22-30) mmol/L BUN 14 (8-23) mg/dl Creatinine 0.9 (0.6-1.1) mg/dl Glucose 110 H (70-105) mg/dL Calcium 8.8 (8.6-10.4) mg/dl Total Bilirubin 0.4 (0.0-1.0) mg/dL AST 20 (0-37) U/l ALT 19 (0-40) U/l Alkaline Phosphatase 90 (39-117) U/L Total Protein 7.0 (5.9-8.4) gm/dL Albumin 2.7 L (3.2-5.2) gm/dL Assessment and Plan (1) Myositis of left lower leg Problem details: NO EVIDENCE OF SKIN BREAKDOWN / OR DISCRETE SKIN AND SUB CUTNEOUS LESION Status: Acute Current Visit: Yes - Narrative A/P Narrative: Assessment: Dermatitis and subcutaneous edema LEFT lower leg. Old PAD. NO ischemia and NO compartment syndrome. Plan: Conservative management. Continue with IV antibiotics. Empiric at this time. Local wound care. VASHE and MIST treatment. Monitoring progress and closely following patient. - Time Spent With Patient Total time spent is greater than 50% in coordination of care (as documented) at patient's floor/unit and/or counseling patient: 25 - 35 minutes
[2018-05-09] MEDS: oxyCODONE HCL 5 MG TABLET PO PRN ×2 (17:26→21:39)
[2018-05-09] MEDS: SENNOSIDES/DOCUSATE SODIUM 1 TAB TABLET PO SCH (21:43)
[2018-05-10] MEDS: PIPERACILLIN SODIUM/TAZOBACTAM 2.25 GM in DEXTROSE 5% IN WATER 50 ML IV SCH (00:15)
[2018-05-10 02:15] LABS: Mean Cell Volume 91.5 fL (80.0-100.0); Mean Corpuscular HGB Conc 33.2 g/dL (31.0-36.0); Mean Corpuscular Hemoglobin 30.4 pg (26.0-34.0); Platelet Count 329 K/mcL (140-440); RBC 4.06 M/mcL (4.00-5.20); Red Cell Distribution Width 13.1 % (11.5-14.5)
[2018-05-10] MEDS: oxyCODONE HCL 5 MG TABLET PO PRN ×4 (02:18→20:25)
[2018-05-10 02:24] LABS: ALT/SGPT 20 U/l (0-40); Albumin 2.5 gm/dL (3.2-5.2); Albumin/Globulin Ratio 0.5 (1.0-2.3); Alkaline Phosphatase 97 U/L (39-117); Bilirubin,Direct < 0.2 mg/dL (0.0-0.3); Blood Urea Nitrogen 11 mg/dl (8-23); Gamma Glutamyl Transpeptidase 28 U/L (5-36); Uric Acid 3.5 mg/dL (2.5-8.0)
[2018-05-10] MEDS ORDERED: PIPERACILLIN SODIUM/TAZOBACTAM 3.375 GM in DEXTROSE 5% IN WATER 50 ML IV SCH (03:00)
[2018-05-10] MEDS ORDERED: ERTAPENEM 1 GM in 0.9 % SODIUM CHLORIDE 50 ML IV SCH (03:00)
[2018-05-10 05:23] LABS: Lymphocytes % 21 % (15-49); Monocytes % (Manual) 8 % (1-12); Platelet Estimate NORMAL (NORMAL); RBC Morphology NORMAL (NORMAL); Segmented Neutrophils % 71 % (38-78); Toxic Granulation 1+ (NONE SEEN)
[2018-05-10] MEDS: PIPERACILLIN SODIUM/TAZOBACTAM 3.375 GM in DEXTROSE 5% IN WATER 50 ML IV SCH ×4 (06:54→18:00)
[2018-05-10] MEDS: ACETAMINOPHEN 325 MG TABLET PO PRN ×3 (07:08→20:25)
[2018-05-10] MEDS: 0.9 % SODIUM CHLORIDE 10 ML SYRINGE IV SCH ×2 (07:08→17:24)
[2018-05-10] MEDS: DOCUSATE SODIUM 100 MG CAPSULE PO SCH ×2 (07:46→20:29)
[2018-05-10] MEDS: OXANDROLONE 2.5 MG TABLET PO SCH ×2 (08:52→20:25)
[2018-05-10] MEDS: HEPARIN 5,000 UNIT/ML VIAL SQ SCH ×2 (08:52→20:29)
[2018-05-10] MEDS: FUROSEMIDE 20 MG/2 ML VIAL IV SCH ×2 (08:52→16:59)
[2018-05-10] MEDS: MULTIVIT,THER IRON,CA,FA & MIN 1 TABLET PO SCH (08:52)
[2018-05-10] MEDS ORDERED: CIPROFLOXACIN 400 MG/200 ML BAG IV SCH (09:15)
--- NOTE | 2018-05-10 09:44 | XRay Report ---
CLINICAL INFORMATION: fever COMPARISON: 05/06/2018 FINDINGS: Moderate cardiomegaly is unchanged. Mediastinum and pulmonary vessels are normal. Lungs are clear. No effusions. IMPRESSION: Moderate stable cardiomegaly. No acute disease Interpreted and Authenticated by: Dago Chavez 05/10/18
[2018-05-10] MEDS: VANCOMYCIN 1,500 MG in 0.9 % SODIUM CHLORIDE 500 ML IV SCH (09:50)
--- NOTE | 2018-05-10 10:58 | General Surgery Progress Note ---
Subjective Patient reports: pain is less, other (Slept well last nite. Itching and pain left leg is less with VASHE and MIST treatments.) Narrative: Note initiated : 05/10/18 at 10:53 am Service Date, if different from initiated Date: [] Patient: Lynette Salamanca 82 y/o F admitted on 05/04/18 for fever, nausea. Chief Complaint: [] Objective Temp Pulse Resp BP Pulse Ox 99.3 F H 80 20 116/59 93 05/10/18 07:53 05/10/18 07:17 05/10/18 07:17 05/10/18 07:17 05/10/18 07:17 VSS. No changes in YORDY. Ambulates with walker. WB on left leg. L/E: CHRONIC lymphedema and post surgical and post phlebitis changes LEFT leg from calf to ankle. Chronic dermatitis and lymphangitis. NO discrete skin or sub cutaneous lesions needing debridement. Labs: Pre albumin is 6. NEEDS Oxandrin PO 5 mg BID Leucocytosis probably related to chronic issues skin and sub cutaneous inflammation left leg. - Additional Data Intake & Output - Last 24 hours: Intake & Output 05/08/18 05/09/18 05/10/18 05/11/18 05:59 05:59 05:59 05:59 Intake Total 2390 / 2390 1670 / 1670 1650 / 1650 170 / 170 Output Total 1450 / 1450 1300 / 1300 1400 / 1400 Balance 940 / 940 370 / 370 250 / 250 170 / 170 Weight 151 lb 8 oz 149 lb 8 oz 149 lb - Labs 05/10/18 00:35 05/10/18 00:35 Diabetes panel 05/10/18 Range/Units 00:35 Sodium 135 (133-145) mmol/L Potassium 3.8 (3.3-5.1) mmol/L Chloride 100 (96-108) mmol/L Carbon Dioxide 23 (22-30) mmol/L BUN 11 (8-23) mg/dl Creatinine 0.9 (0.6-1.1) mg/dl Glucose 137 H (70-105) mg/dL Calcium 8.7 (8.6-10.4) mg/dl AST 26 (0-37) U/l ALT 20 (0-40) U/l Alkaline Phosphatase 97 (39-117) U/L Total Protein 7.4 (5.9-8.4) gm/dL Albumin 2.5 L (3.2-5.2) gm/dL Triglycerides 148 (<150) mg/dl Calcium panel 05/10/18 Range/Units 00:35 Calcium 8.7 (8.6-10.4) mg/dl Phosphorus 3.2 (2.7-4.5) mg/dL Albumin 2.5 L (3.2-5.2) gm/dL Pituitary panel 05/10/18 Range/Units 00:35 Sodium 135 (133-145) mmol/L Potassium 3.8 (3.3-5.1) mmol/L Chloride 100 (96-108) mmol/L Carbon Dioxide 23 (22-30) mmol/L BUN 11 (8-23) mg/dl Creatinine 0.9 (0.6-1.1) mg/dl Glucose 137 H (70-105) mg/dL Calcium 8.7 (8.6-10.4) mg/dl Adrenal panel 05/10/18 Range/Units 00:35 Sodium 135 (133-145) mmol/L Potassium 3.8 (3.3-5.1) mmol/L Chloride 100 (96-108) mmol/L Carbon Dioxide 23 (22-30) mmol/L BUN 11 (8-23) mg/dl Creatinine 0.9 (0.6-1.1) mg/dl Glucose 137 H (70-105) mg/dL Calcium 8.7 (8.6-10.4) mg/dl Total Bilirubin 0.4 (0.0-1.0) mg/dL AST 26 (0-37) U/l ALT 20 (0-40) U/l Alkaline Phosphatase 97 (39-117) U/L Total Protein 7.4 (5.9-8.4) gm/dL Albumin 2.5 L (3.2-5.2) gm/dL Assessment and Plan (1) Myositis of left lower leg Problem details: NO EVIDENCE OF SKIN BREAKDOWN / OR DISCRETE SKIN AND SUB CUTNEOUS LESION Status: Acute Current Visit: Yes - Time Spent With Patient Total time spent is greater than 50% in coordination of care (as documented) at patient's floor/unit and/or counseling patient: Assessment: 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 LEFT leg. Symptomatic improvement with VASHE and MIST Hypoproteinemia. Prealbumin 6 Needs off loading of LEFT leg. Plan: Start Oxandrin 5 mg BID and Recommend Physical Therapy consult for OFF LOADING with nataliia campbell. Discussed with Dr. Jerry. Hospitalist physician. 25 - 35 minutes
--- NOTE | 2018-05-10 12:04 | Internal Med Progress Note ---
Medical - PN: Subj Patient information: Note initiated : 05/10/18 at 12:02 pm Service Date, if different from initiated Date: [] Patient: Lynette Salamanca 82 y/o F admitted on 05/04/18 for fever, nausea. Chief Complaint: [] Interval history: 05/04-patient admitted with left lower extremity lymphangitis/cellulitis likely group B streptococcus. Rapidly progressing and hence started on clindamycin/ Rocephin. Await blood cultures. Continue close monitoring, lactic acid trending. Current lactic acid 2.6. On crystalloids. 05/05-wound care consulted. White count at 15.5. 47% bands. Worsening lower extremity redness. Wound care recommends CT scan to rule out osteomyelitis. Blood cultures negative so far. Antibiotic spectrum extended with clindamycin along with Rocephin. Patient however feeling better than previous day and able to bear weight and ambulate. Start aggressive diuresis in light of significant lymphedema. 05/06-patient doing a lot better. Improve lymphedema/redness and pain. CT scan lower extremity shows significant cellulitis/myositis. White count downtrending to 13.1 with downtrending bandemia from afebrile. Blood cultures negative so far. Able to bear weight and ongoing physical therapy. Wound care ongoing. Antibiotics escalated to Zosyn/vancomycin. Possible discharge in 48 hours if continues to improve clinically. Will need outpatient IV antibiotics. No family at bedside. Diuresing well 05/07-patient clinically improving. Improved lower extremity redness pain. Improved leukocytosis down to 9.9 with resolving bandemia. Fever 100.3 this morning. Potassium down to 2.9 on aggressive potassium replacement 120 mg. Continue diuresis. Possible discharge in 24-48 hours with outpatient antibiotics. Blood cultures positive for gram-positive bacilli. Will target antibiotics through May 15. 05/08 Pt seen examined, still has pain in the leg, and erythema, pt reports improvement from admission, but the pic since admission show much less erythema. BC is GPC one bottle, pt wbc count is up today, but is afebrile. CT was neg for abscess n admission. will continue with IV vanco and zosyn for now, monitor for response. 05/09 Patient seen examined no acute overnight issues, feels pain is worse, her lower extermity is more tender and there is some sloughing of the skin, X ray neg for air, USG done neg for abscess, but clinically pt pain is worse, I am not sure how much area was covered by USG looking at the image, I doubt if the entire involved region was covered. Will repeat CT lower extremity with contrast to see if any significant change is present. 05/10 Patient seen and examined lying in bed comfortable. Overnight events noted. She was febrile with a temperature of 101. Repeat blood cultures sent. Labs today show worsening WBC count. Clinically however patient is much better, CT scan done yesterday shows improved cellulitis compared to yesterday. Chest x -ray is negative. The patient's leg also appears to be better. I have increased the dose of Zosyn from 2.25 every 6 to 3.375 every 6, pt to continu on vanco appreciate wound care help. Pertinent ROS: Denies headache, dizziness Denies chest pain, palpitations Denies cough or shortness of breath Denies abdominal pain, nausea or vomiting. - Constitutional Vitals: Vital Signs Temp Pulse Resp BP Pulse Ox 99.3 F H 80 20 116/59 93 05/10/18 07:53 05/10/18 07:17 05/10/18 07:17 05/10/18 07:17 05/10/18 07:17 Period Temp Pulse Resp BP Sys/Tobar Pulse Ox Last 24 Hr 98.1 F-101.0 F 77-80 18-20 116-134/51-68 91-95 Intake and Output 05/09/18 05/10/18 05/10/18 21:59 05:59 13:59 Intake Total 100 / 100 200 / 200 170 / 170 Output Total 400 / 400 500 / 500 Balance -300 / -300 -300 / -300 170 / 170 Weight 149 lb Intake & Output: Intake & Output 05/09/18 05/10/18 05/10/18 21:59 05:59 13:59 Intake Total 100 / 100 200 / 200 170 / 170 Output Total 400 / 400 500 / 500 Balance -300 / -300 -300 / -300 170 / 170 Weight 149 lb Intake: IV 100 / 100 50 / 50 Zosyn 2.25 gm In Dextrose 5% in 100 / 100 Water 50 ml @ 100 mls/hr IV Q6H [facility] Rx#:[id number] Zosyn 3.375 gm In Dextrose 5% 50 / 50 in Water 50 ml @ 100 mls/hr IV Q6H [facility] Rx#:[id number] Oral 200 / 200 120 / 120 Output: Void Amount 400 / 400 500 / 500 Other: Urine Appearance Clear Urine Color Straw Urine Odor Normal Exam: Constitutional; Afebrile, cooperative, alert, not in distress. Respiratory system: Air Entry equal on both sides, No crackles or wheezing, no rhonchi. CVS- Rate rhythm regular, S1,S2 heard, no gallop, no rub. 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 Right lower extremity, improved erythema, and tenderness Medical - PN: Obj Da - Labs CBC & Chem 7: 05/10/18 00:35 05/10/18 00:35 Labs: Abnormal Lab Results 05/10/18 05/10/18 05/09/18 00:35 00:35 04:21 WBC 16.8 H RBC Hgb Hct MPV 7.3 L Monocytes % (Manual) WBC Morphology Abnorm A Toxic Granulation 1+ A RBC Morphology Rouleaux Sodium Chloride Glucose 137 H 110 H Lactate Dehydrogenase 336 H 295 H Albumin 2.5 L 2.7 L Globulin 4.9 H 4.3 H Albumin/Globulin Ratio 0.5 L 0.6 L Prealbumin Triglycerides 155 H 05/09/18 05/08/18 05/08/18 04:21 04:11 04:11 WBC 12.3 H 15.1 H RBC 3.90 L 3.85 L Hgb 11.8 L Hct 35.8 L 35.3 L MPV Monocytes % (Manual) 13 H 14 H WBC Morphology Toxic Granulation RBC Morphology Abnorm A Rouleaux Present A Sodium Chloride Glucose 119 H Lactate Dehydrogenase 303 H Albumin 2.8 L Globulin 4.1 H Albumin/Globulin Ratio 0.7 L Prealbumin 7.5 L Triglycerides 05/07/18 17:38 WBC RBC Hgb Hct MPV Monocytes % (Manual) WBC Morphology Toxic Granulation RBC Morphology Rouleaux Sodium 132 L Chloride 94 L Glucose 138 H Lactate Dehydrogenase Albumin Globulin Albumin/Globulin Ratio Prealbumin Triglycerides Meds: Medications Acetaminophen (Tylenol) 650 mg PO Q4-6HP PRN PRN Reason: PAIN/FEVER > 101 Last Admin: 05/10/18 07:08 Dose: 650 mg Albuterol/Ipratropium (Duoneb) 3 ml NEB Q4HP PRN PRN Reason: Shortness Of Breath Or Wheezing Docusate Sodium (Colace) 100 mg PO BID [facility] Last Admin: 05/10/18 07:46 Dose: Not Given Furosemide (Lasix) 20 mg IV BIDD [facility] Last Admin: 05/10/18 08:52 Dose: 20 mg Heparin Sodium (Porcine) (Heparin) 5,000 unit SQ Q12 [facility] Last Admin: 05/10/18 08:52 Dose: 5,000 unit Magnesium Sulfate (Magnesium Sulfate) 2 gm in 50 mls @ 50 mls/hr IV UD PRN PRN Reason: MG = or < 1.7 Acetaminophen (Ofirmev) 1,000 mg in 100 mls @ 200 mls/hr IV Q6HP PRN PRN Reason: PAIN/FEVER > 101 Vancomycin HCl 1,500 mg/ (Sodium Chloride) 500 mls @ 333.3 mls/hr IV DAILY [facility] Last Admin: 05/10/18 09:50 Dose: 333 mls/hr Piperacillin Sod/Tazobactam (Sod 3.375 gm/ Dextrose) 50 mls @ 100 mls/hr IV Q6H [facility] Last Admin: 05/10/18 11:57 Dose: 100 mls/hr Iron Carb/Multivit/Virgie/Folic Acid (Multivitamin W/Minerals) 1 tab PO DAILY [facility] Last Admin: 05/10/18 08:52 Dose: 1 tab Ondansetron HCl (Zofran) 4 mg IV Q4-6HP PRN PRN Reason: Nausea And Vomiting Oxandrolone (Oxandrin) 5 mg PO BID [facility] Last Admin: 05/10/18 08:52 Dose: 5 mg Oxycodone HCl (Roxicodone) 5 mg PO Q4HP PRN PRN Reason: pain not responding to tylenol Last Admin: 05/10/18 07:08 Dose: 5 mg Potassium Chloride (Klor-Con) 40 meq PO DAILYP PRN PRN Reason: K+ < 3.5 Senna/Docusate Sodium (Senna Plus Tablet) 1 tab PO HS [facility] Last Admin: 05/09/18 21:43 Dose: Not Given Sodium Chloride (Saline Flush) 10 ml IV Q8 [facility] Last Admin: 05/10/18 07:08 Dose: 10 ml Vancomycin HCl (Vancomycin Per Pharmacy) 1 order IV UD [facility] Medical - PN: A/P - Time Spent With Patient Total time spent is greater than 50% in coordination of care (as documented) at patient's floor/unit and/or counseling patient: - Narrative A/P Narrative: A/P Severe sepsis with GPC bacteremia, - Clinically improving, wbc up again, monitor. Severe cellulitis- On IV antibiotics, appreciate Help from wound care, repeat CT shows improving cellulitis. continue on IV vancomycin and IV zosyn, dose of zosyn adjusted. Continue limb elevation and local wound care Hypokalemia- K stable, replace contraction alkalosis- Bicarb stable, monitor for now, no need for diamox at present. h/o lung mass/ followed by oncology dr roberts DVT hep sq Full code * Medical - PN: Qual - VTE Deep Vein Thrombosis/Pulmonary Embolism Present on Admission: No
[2018-05-10] MEDS: SENNOSIDES/DOCUSATE SODIUM 1 TAB TABLET PO SCH (20:29)
[2018-05-11] MEDS: ACETAMINOPHEN 325 MG TABLET PO PRN ×5 (00:05→17:24)
[2018-05-11] MEDS: oxyCODONE HCL 5 MG TABLET PO PRN ×5 (00:05→21:32)
[2018-05-11] MEDS: PIPERACILLIN SODIUM/TAZOBACTAM 3.375 GM in DEXTROSE 5% IN WATER 50 ML IV SCH ×4 (00:28→18:30)
[2018-05-11] MEDS: 0.9 % SODIUM CHLORIDE 10 ML SYRINGE IV SCH ×3 (00:29→13:56)
[2018-05-11 05:20] LABS: Mean Cell Volume 91.8 fL (80.0-100.0); Mean Corpuscular HGB Conc 33.7 g/dL (31.0-36.0); Mean Corpuscular Hemoglobin 30.9 pg (26.0-34.0); Platelet Count 372 K/mcL (140-440); Red Cell Distribution Width 13.4 % (11.5-14.5)
[2018-05-11 05:39] LABS: ALT/SGPT 17 U/l (0-40); Albumin 2.3 gm/dL (3.2-5.2); Albumin/Globulin Ratio 0.5 (1.0-2.3); Alkaline Phosphatase 88 U/L (39-117); Bilirubin,Direct < 0.2 mg/dL (0.0-0.3); Blood Urea Nitrogen 12 mg/dl (8-23); Gamma Glutamyl Transpeptidase 25 U/L (5-36); Uric Acid 3.5 mg/dL (2.5-8.0)
[2018-05-11 05:53] LABS: Eosinophils % (Manual) 1 % (0-7); Lymphocytes % 16 % (15-49); Monocytes % (Manual) 5 % (1-12); Platelet Estimate NORMAL (NORMAL); RBC Morphology NORMAL (NORMAL); Segmented Neutrophils % 78 % (38-78); Toxic Granulation 1+ (NONE SEEN)
[2018-05-11] MEDS: FUROSEMIDE 20 MG/2 ML VIAL IV SCH ×2 (07:35→15:37)
[2018-05-11] MEDS: DOCUSATE SODIUM 100 MG CAPSULE PO SCH ×2 (08:00→21:30)
[2018-05-11] MEDS: MULTIVIT,THER IRON,CA,FA & MIN 1 TABLET PO SCH (08:10)
[2018-05-11] MEDS: VANCOMYCIN 1,500 MG in 0.9 % SODIUM CHLORIDE 500 ML IV SCH (08:10)
[2018-05-11] MEDS: HEPARIN 5,000 UNIT/ML VIAL SQ SCH ×2 (08:10→21:33)
[2018-05-11] MEDS: OXANDROLONE 2.5 MG TABLET PO SCH ×2 (08:10→21:32)
--- NOTE | 2018-05-11 11:47 | Internal Med Progress Note ---
Medical - PN: Subj Patient information: Note initiated : 05/11/18 at 11:42 am Service Date, if different from initiated Date: [] Patient: Lynette Salamanca 82 y/o F admitted on 05/04/18 for fever, nausea. Chief Complaint: [] Interval history: 05/04-patient admitted with left lower extremity lymphangitis/cellulitis likely group B streptococcus. Rapidly progressing and hence started on clindamycin/ Rocephin. Await blood cultures. Continue close monitoring, lactic acid trending. Current lactic acid 2.6. On crystalloids. 05/05-wound care consulted. White count at 15.5. 47% bands. Worsening lower extremity redness. Wound care recommends CT scan to rule out osteomyelitis. Blood cultures negative so far. Antibiotic spectrum extended with clindamycin along with Rocephin. Patient however feeling better than previous day and able to bear weight and ambulate. Start aggressive diuresis in light of significant lymphedema. 05/06-patient doing a lot better. Improve lymphedema/redness and pain. CT scan lower extremity shows significant cellulitis/myositis. White count downtrending to 13.1 with downtrending bandemia from afebrile. Blood cultures negative so far. Able to bear weight and ongoing physical therapy. Wound care ongoing. Antibiotics escalated to Zosyn/vancomycin. Possible discharge in 48 hours if continues to improve clinically. Will need outpatient IV antibiotics. No family at bedside. Diuresing well 05/07-patient clinically improving. Improved lower extremity redness pain. Improved leukocytosis down to 9.9 with resolving bandemia. Fever 100.3 this morning. Potassium down to 2.9 on aggressive potassium replacement 120 mg. Continue diuresis. Possible discharge in 24-48 hours with outpatient antibiotics. Blood cultures positive for gram-positive bacilli. Will target antibiotics through May 15. 05/08 Pt seen examined, still has pain in the leg, and erythema, pt reports improvement from admission, but the pic since admission show much less erythema. BC is GPC one bottle, pt wbc count is up today, but is afebrile. CT was neg for abscess n admission. will continue with IV vanco and zosyn for now, monitor for response. 05/09 Patient seen examined no acute overnight issues, feels pain is worse, her lower extermity is more tender and there is some sloughing of the skin, X ray neg for air, USG done neg for abscess, but clinically pt pain is worse, I am not sure how much area was covered by USG looking at the image, I doubt if the entire involved region was covered. Will repeat CT lower extremity with contrast to see if any significant change is present. 05/10 Patient seen and examined lying in bed comfortable. Overnight events noted. She was febrile with a temperature of 101. Repeat blood cultures sent. Labs today show worsening WBC count. Clinically however patient is much better, CT scan done yesterday shows improved cellulitis compared to yesterday. Chest x -ray is negative. The patient's leg also appears to be better. I have increased the dose of Zosyn from 2.25 every 6 to 3.375 every 6, pt to continu on vanco appreciate wound care help. 05/11 Pt seen examined still has erythema and pain, wbc trending up, low grade fever prese given some repsonse to IV abx, but not much, will see if she needs surgical debridement to help with the wound. consult Dr Miles Pertinent ROS: Denies headache, dizziness Denies chest pain, palpitations Denies cough or shortness of breath Denies abdominal pain, nausea or vomiting. - Constitutional Vitals: Vital Signs Temp Pulse Resp BP Pulse Ox 100.5 F H 68 20 115/59 94 05/11/18 11:39 05/11/18 03:20 05/11/18 11:38 05/11/18 11:38 05/11/18 11:38 Period Temp Pulse Resp BP Sys/Tobar Pulse Ox Last 24 Hr 97.2 F-100.5 F 68-83 16-20 102-148/48-78 93-96 Intake and Output 05/10/18 05/11/18 05/11/18 21:59 05:59 13:59 Intake Total 2200 / 2200 650 / 650 550 / 550 Output Total 0 / 0 Balance 2200 / 2200 650 / 650 550 / 550 Weight 152 lb Intake & Output: Intake & Output 05/10/18 05/11/18 05/11/18 21:59 05:59 13:59 Intake Total 2200 / 2200 650 / 650 550 / 550 Output Total 0 / 0 Balance 2200 / 2200 650 / 650 550 / 550 Weight 152 lb Intake: IV 600 / 600 50 / 50 550 / 550 Zosyn 3.375 gm In Dextrose 5% 100 / 100 50 / 50 50 / 50 in Water 50 ml @ 100 mls/hr IV Q6H [facility] Rx#:[id number] Vancomycin 1,500 mg In Sodium 500 / 500 500 / 500 Chloride 0.9% 500 ml @ 333.3 mls/hr IV DAILY [facility] Rx#: [id number] Oral 1600 / 1600 600 / 600 Output: Void Amount 0 / 0 Other: Meal Lunch Breakfast Percent of Meal Consumed 50% 100% Stool Size Small Moderate Stool Color Brown Brown Black Stool Consistency Loose Loose # Voids 1 1 # Bowel Movements 1 1 Exam: Constitutional; Afebrile, cooperative, alert, not in distress. Respiratory system: Air Entry equal on both sides, No crackles or wheezing, no rhonchi. CVS- Rate rhythm regular, S1,S2 heard, no gallop, no rub. Abdomen- Soft nontender abdomen, no organomegaly, no tenderness, no guarding or rigidity, SERVER- AOOx3, moving all extremities, no gross focal deficit noted. Medical - PN: Obj Da - Labs CBC & Chem 7: 05/11/18 04:10 05/11/18 04:10 Labs: Abnormal Lab Results 05/11/18 05/11/18 05/10/18 04:10 04:10 00:35 WBC 19.3 H RBC 3.60 L Hgb 11.1 L Hct 33.0 L MPV 7.3 L Monocytes % (Manual) WBC Morphology Abnorm A Toxic Granulation 1+ A Glucose 137 H Calcium 8.5 L Lactate Dehydrogenase 274 H 336 H Albumin 2.3 L 2.5 L Globulin 4.6 H 4.9 H Albumin/Globulin Ratio 0.5 L 0.5 L Triglycerides 05/10/18 05/09/18 05/09/18 00:35 04:21 04:21 WBC 16.8 H 12.3 H RBC 3.90 L Hgb Hct 35.8 L MPV 7.3 L Monocytes % (Manual) 13 H WBC Morphology Abnorm A Toxic Granulation 1+ A Glucose 110 H Calcium Lactate Dehydrogenase 295 H Albumin 2.7 L Globulin 4.3 H Albumin/Globulin Ratio 0.6 L Triglycerides 155 H Meds: Medications Acetaminophen (Tylenol) 650 mg PO Q4-6HP PRN PRN Reason: PAIN/FEVER > 101 Last Admin: 05/11/18 11:39 Dose: 650 mg Albuterol/Ipratropium (Duoneb) 3 ml NEB Q4HP PRN PRN Reason: Shortness Of Breath Or Wheezing Docusate Sodium (Colace) 100 mg PO BID [facility] Last Admin: 05/11/18 08:00 Dose: Not Given Furosemide (Lasix) 20 mg IV BIDD [facility] Last Admin: 05/11/18 07:35 Dose: 20 mg Heparin Sodium (Porcine) (Heparin) 5,000 unit SQ Q12 [facility] Last Admin: 05/11/18 08:10 Dose: 5,000 unit Magnesium Sulfate (Magnesium Sulfate) 2 gm in 50 mls @ 50 mls/hr IV UD PRN PRN Reason: MG = or < 1.7 Acetaminophen (Ofirmev) 1,000 mg in 100 mls @ 200 mls/hr IV Q6HP PRN PRN Reason: PAIN/FEVER > 101 Vancomycin HCl 1,500 mg/ (Sodium Chloride) 500 mls @ 333.3 mls/hr IV DAILY [facility] Last Infusion: 05/11/18 10:12 Dose: Infused Piperacillin Sod/Tazobactam (Sod 3.375 gm/ Dextrose) 50 mls @ 100 mls/hr IV Q6H [facility] Last Infusion: 05/11/18 06:30 Dose: Infused Iron Carb/Multivit/[place]/Folic Acid (Multivitamin W/Minerals) 1 tab PO DAILY [facility] Last Admin: 05/11/18 08:10 Dose: 1 tab Ondansetron HCl (Zofran) 4 mg IV Q4-6HP PRN PRN Reason: Nausea And Vomiting Oxandrolone (Oxandrin) 5 mg PO BID [facility] Last Admin: 05/11/18 08:10 Dose: 5 mg Oxycodone HCl (Roxicodone) 5 mg PO Q4HP PRN PRN Reason: pain not responding to tylenol Last Admin: 05/11/18 07:35 Dose: 5 mg Potassium Chloride (Klor-Con) 40 meq PO DAILYP PRN PRN Reason: K+ < 3.5 Senna/Docusate Sodium (Senna Plus Tablet) 1 tab PO HS [facility] Last Admin: 05/10/18 20:29 Dose: Not Given Sodium Chloride (Saline Flush) 10 ml IV Q8 [facility] Last Admin: 05/11/18 06:00 Dose: 10 ml Vancomycin HCl (Vancomycin Per Pharmacy) 1 order IV UD [facility] Medical - PN: A/P - Time Spent With Patient Total time spent is greater than 50% in coordination of care (as documented) at patient's floor/unit and/or counseling patient: - Narrative A/P Narrative: A/P Severe sepsis with GPC bacteremia, - hemodynamically stable, but wbc is trending up again, procalcitonin is up. Blood culture is growing gram positive bacillus, repeat culture are negative. Surgery consult Severe cellulitis- On IV antibiotics, appreciate Help from wound care, repeat CT shows improving cellulitis. continue on IV vancomycin and IV zosyn, dose of zosyn adjusted. Continue limb elevation and local wound care. Surgery to evaluate. Hypokalemia- K stable, replace contraction alkalosis- Bicarb stable, monitor for now, no need for diamox at present. h/o lung mass/ followed by oncology dr roberts DVT hep sq Full code * Medical - PN: Qual - VTE Deep Vein Thrombosis/Pulmonary Embolism Present on Admission: No
[2018-05-11] MEDS ORDERED: HYDROmorphone 2 MG/ML VIAL IV ONE (15:14)
--- NOTE | 2018-05-11 15:30 | General Surgery Progress Note ---
Subjective Patient reports: other (No acute interval changes in YORDY. Leucosytosis persists and trending up.) Narrative: Note initiated : 05/11/18 at 3:25 pm Service Date, if different from initiated Date: [] Patient: Lynette Salamanca 82 y/o F admitted on 05/04/18 for fever, nausea. Chief Complaint: [] Objective Temp Pulse Resp BP Pulse Ox 99.4 F H 68 20 128/59 93 05/11/18 15:07 05/11/18 03:20 05/11/18 15:07 05/11/18 15:07 05/11/18 15:07 Temp < 100 F. VSS No changes OYRDY. Left leg edema and erythema somewhat improved with local treatment and off loading. Labs: Leucocytosis trending up. C/S negative thus far. Imaging studies NO osteomyelitis. Skin and sub cutaneous soft tissue inflammatory changes persist. Patient seen with Dr. Jerry, Hospitalist physician and Khushbu FLAHERTY. Await input from Dr. Gume Miles. General Surgery. - Additional Data Intake & Output - Last 24 hours: Intake & Output 05/09/18 05/10/18 05/11/18 05/12/18 05:59 05:59 05:59 05:59 Intake Total 1670 / 1670 1650 / 1650 3020 / 3020 600 / 600 Output Total 1300 / 1300 1400 / 1400 450 / 450 Balance 370 / 370 250 / 250 3019 / 3019 150 / 150 Weight 149 lb 8 oz 149 lb 152 lb - Labs 05/11/18 04:10 05/11/18 04:10 Diabetes panel 05/11/18 Range/Units 04:10 Sodium 137 (133-145) mmol/L Potassium 3.5 (3.3-5.1) mmol/L Chloride 100 (96-108) mmol/L Carbon Dioxide 25 (22-30) mmol/L BUN 12 (8-23) mg/dl Creatinine 0.9 (0.6-1.1) mg/dl Glucose 98 (70-105) mg/dL Calcium 8.5 L (8.6-10.4) mg/dl AST 22 (0-37) U/l ALT 17 (0-40) U/l Alkaline Phosphatase 88 (39-117) U/L Total Protein 6.9 (5.9-8.4) gm/dL Albumin 2.3 L (3.2-5.2) gm/dL Triglycerides 146 (<150) mg/dl Calcium panel 05/11/18 Range/Units 04:10 Calcium 8.5 L (8.6-10.4) mg/dl Phosphorus 3.8 (2.7-4.5) mg/dL Albumin 2.3 L (3.2-5.2) gm/dL Pituitary panel 05/11/18 Range/Units 04:10 Sodium 137 (133-145) mmol/L Potassium 3.5 (3.3-5.1) mmol/L Chloride 100 (96-108) mmol/L Carbon Dioxide 25 (22-30) mmol/L BUN 12 (8-23) mg/dl Creatinine 0.9 (0.6-1.1) mg/dl Glucose 98 (70-105) mg/dL Calcium 8.5 L (8.6-10.4) mg/dl Adrenal panel 05/11/18 Range/Units 04:10 Sodium 137 (133-145) mmol/L Potassium 3.5 (3.3-5.1) mmol/L Chloride 100 (96-108) mmol/L Carbon Dioxide 25 (22-30) mmol/L BUN 12 (8-23) mg/dl Creatinine 0.9 (0.6-1.1) mg/dl Glucose 98 (70-105) mg/dL Calcium 8.5 L (8.6-10.4) mg/dl Total Bilirubin 0.4 (0.0-1.0) mg/dL AST 22 (0-37) U/l ALT 17 (0-40) U/l Alkaline Phosphatase 88 (39-117) U/L Total Protein 6.9 (5.9-8.4) gm/dL Albumin 2.3 L (3.2-5.2) gm/dL Assessment and Plan (1) Myositis of left lower leg Problem details: NO EVIDENCE OF SKIN BREAKDOWN / OR DISCRETE SKIN AND SUB CUTNEOUS LESION Status: Acute Current Visit: Yes - Time Spent With Patient Total time spent is greater than 50% in coordination of care (as documented) at patient's floor/unit and/or counseling patient: Assessment: Clinically stable and local examination shows improvement of dermatitis. Leucocytosis persists and trending up Patient with h/o Lymphoma. Plan: Continue current treatment. Await input from Dr. Gume Miles MD General Surgery. 15 - 24 minutes
--- NOTE | 2018-05-11 16:08 | General Surgery Consult Note ---
History of Present Illness Patient information: Note initiated : 05/11/18 at 4:06 pm Service Date, if different from initiated Date: [] Patient: Lynette Salamanca 82 y/o F admitted on 05/04/18 for fever, nausea. Chief Complaint: [] Reason for consult: other (cellulitis left lower extremity) Requesting physician: Sofía Jerry History of present illness: [id number] female who was admitted on for April with cellulitis of her left lower extremity.. She had some moderate edema and superficial cellulitis of the lower one half of her leg. White blood count at that time was 7.5. She was treated with clindamycin and Rocephin.. Over the next few days her white blood count increased to 15,400 with 47% bands.vancomycin was added and the white blood count decreased to 9900. The patient clinically was improved but over the next few days the white count increased and is now 19,300.. She had a low-grade fever initially on admission but became afebrile. Her overall temperature curve is now increasing and is in the 100 range. Clinically the leg is much worse.. The only cultures growing are G+ positive bacillus . She has been seen for reevaluation. Evaluation of her CT scans 2 only shows cellulitis of the skin and subcutaneous tissue. There is no subcutaneous or subfascial fluid or gas.. Ultrasound is negative for fluid collections and FOR venous thrombosis. The patient is counseled for injection of the inflamed area with aspiration for culture.. Medications and Allergies Home Medications Medication Instructions Recorded Confirmed Type No Known Home Meds 09/30/15 05/03/18 History Allergies Allergy/AdvReac Type Severity Reaction Status Date / Time No Known Drug Allergies Allergy Verified 05/03/18 20:25 Exam Temp Pulse Resp BP Pulse Ox 99.4 F H 68 20 128/59 93 05/11/18 15:07 05/11/18 03:20 05/11/18 15:07 05/11/18 15:07 05/11/18 15:07 - Integumentary Present: other (severe cellulitis left lower extremity with extreme erythema extending to the knee... There are multiple pustular lesions along the medial aspect of her leg extending to about mid calf level. She has extreme hyperesthesia with any palpation....... She also has tender adenopathy in the left groin.) Results - Labs 05/11/18 04:10 05/11/18 04:10 Abnormal lab results 05/11/18 05/11/18 Range/Units 04:10 04:10 WBC 19.3 H (4.5-11.0) K/mcL RBC 3.60 L (4.00-5.20) M/mcL Hgb 11.1 L (12.0-15.0) g/dL Hct 33.0 L (36.0-48.0) % MPV 7.3 L (7.4-10.4) fL WBC Morphology Abnorm A (NORMAL) Toxic Granulation 1+ A (NONE SEEN) Calcium 8.5 L (8.6-10.4) mg/dl Lactate Dehydrogenase 274 H (94-250) U/L Albumin 2.3 L (3.2-5.2) gm/dL Globulin 4.6 H (2.2-3.7) gm/dL Albumin/Globulin Ratio 0.5 L (1.0-2.3) Diabetes panel 05/11/18 Range/Units 04:10 Sodium 137 (133-145) mmol/L Potassium 3.5 (3.3-5.1) mmol/L Chloride 100 (96-108) mmol/L Carbon Dioxide 25 (22-30) mmol/L BUN 12 (8-23) mg/dl Creatinine 0.9 (0.6-1.1) mg/dl Glucose 98 (70-105) mg/dL Calcium 8.5 L (8.6-10.4) mg/dl AST 22 (0-37) U/l ALT 17 (0-40) U/l Alkaline Phosphatase 88 (39-117) U/L Total Protein 6.9 (5.9-8.4) gm/dL Albumin 2.3 L (3.2-5.2) gm/dL Triglycerides 146 (<150) mg/dl Calcium panel 05/11/18 Range/Units 04:10 Calcium 8.5 L (8.6-10.4) mg/dl Phosphorus 3.8 (2.7-4.5) mg/dL Albumin 2.3 L (3.2-5.2) gm/dL Pituitary panel 05/11/18 Range/Units 04:10 Sodium 137 (133-145) mmol/L Potassium 3.5 (3.3-5.1) mmol/L Chloride 100 (96-108) mmol/L Carbon Dioxide 25 (22-30) mmol/L BUN 12 (8-23) mg/dl Creatinine 0.9 (0.6-1.1) mg/dl Glucose 98 (70-105) mg/dL Calcium 8.5 L (8.6-10.4) mg/dl Adrenal panel 05/11/18 Range/Units 04:10 Sodium 137 (133-145) mmol/L Potassium 3.5 (3.3-5.1) mmol/L Chloride 100 (96-108) mmol/L Carbon Dioxide 25 (22-30) mmol/L BUN 12 (8-23) mg/dl Creatinine 0.9 (0.6-1.1) mg/dl Glucose 98 (70-105) mg/dL Calcium 8.5 L (8.6-10.4) mg/dl Total Bilirubin 0.4 (0.0-1.0) mg/dL AST 22 (0-37) U/l ALT 17 (0-40) U/l Alkaline Phosphatase 88 (39-117) U/L Total Protein 6.9 (5.9-8.4) gm/dL Albumin 2.3 L (3.2-5.2) gm/dL All other labs normal. Assessment and Plan (1) Cellulitis of leg without foot, left 3 areas of pustules injected with sterile saline and culture taken Specimen sent for aerobic anaerobic and fungal cultures Recommend adding fluoroquinolone to treatment regimen until these cultures available We'll continue to follow Status: Acute
[2018-05-11] MEDS: CIPROFLOXACIN 400 MG/200 ML BAG IV SCH (17:17)
[2018-05-11] MEDS: SENNOSIDES/DOCUSATE SODIUM 1 TAB TABLET PO SCH (21:30)
[2018-05-12] MEDS: 0.9 % SODIUM CHLORIDE 10 ML SYRINGE IV SCH ×4 (00:05→21:33)
[2018-05-12] MEDS: PIPERACILLIN SODIUM/TAZOBACTAM 3.375 GM in DEXTROSE 5% IN WATER 50 ML IV SCH ×4 (00:05→17:45)
[2018-05-12] MEDS: oxyCODONE HCL 5 MG TABLET PO PRN ×6 (02:39→19:51)
[2018-05-12] MEDS: ACETAMINOPHEN 325 MG TABLET PO PRN ×3 (02:47→15:03)
[2018-05-12 06:05] LABS: Mean Cell Volume 92.8 fL (80.0-100.0); Mean Corpuscular HGB Conc 33.4 g/dL (31.0-36.0); Mean Corpuscular Hemoglobin 30.9 pg (26.0-34.0); Platelet Count 409 K/mcL (140-440); RBC 3.26 M/mcL (4.00-5.20); Red Cell Distribution Width 13.3 % (11.5-14.5)
[2018-05-12 06:38] LABS: ALT/SGPT 14 U/l (0-40); Albumin 2.3 gm/dL (3.2-5.2); Albumin/Globulin Ratio 0.5 (1.0-2.3); Alkaline Phosphatase 84 U/L (39-117); Bilirubin,Direct < 0.2 mg/dL (0.0-0.3); Blood Urea Nitrogen 9 mg/dl (8-23); Gamma Glutamyl Transpeptidase 26 U/L (5-36); Uric Acid 3.5 mg/dL (2.5-8.0)
[2018-05-12] MEDS: CIPROFLOXACIN 400 MG/200 ML BAG IV SCH ×2 (07:16→21:16)
[2018-05-12] MEDS ORDERED: POTASSIUM CHLORIDE 40 MEQ in DEXTROSE 5% IN WATER 500 ML IV ONE (07:25)
[2018-05-12 07:52] LABS: Band Neutrophils % 1 % (0-10); Lymphocytes % 8 % (15-49); Monocytes % (Manual) 2 % (1-12); Myelocytes % 1 % (0-0); Platelet Estimate NORMAL (NORMAL); RBC Morphology NORMAL (NORMAL); Segmented Neutrophils % 88 % (38-78)
[2018-05-12] MEDS: HEPARIN 5,000 UNIT/ML VIAL SQ SCH ×2 (08:57→21:16)
[2018-05-12] MEDS: FUROSEMIDE 20 MG/2 ML VIAL IV SCH ×2 (08:57→17:47)
[2018-05-12] MEDS: DOCUSATE SODIUM 100 MG CAPSULE PO SCH ×2 (08:57→21:16)
[2018-05-12] MEDS: MULTIVIT,THER IRON,CA,FA & MIN 1 TABLET PO SCH (08:58)
[2018-05-12] MEDS: OXANDROLONE 2.5 MG TABLET PO SCH ×2 (09:11→21:16)
[2018-05-12] MEDS ORDERED: LIDOCAINE 1% 20 ML VIAL IV ONE (09:22)
[2018-05-12] MEDS: VANCOMYCIN 1,500 MG in 0.9 % SODIUM CHLORIDE 500 ML IV SCH (09:59)
--- NOTE | 2018-05-12 11:46 | Internal Med Progress Note ---
Medical - PN: Subj Patient information: Note initiated : 05/12/18 at 11:42 am Service Date, if different from initiated Date: [] Patient: Lynette Salamanca 82 y/o F admitted on 05/04/18 for fever, nausea. Chief Complaint: [] Interval history: 05/04-patient admitted with left lower extremity lymphangitis/cellulitis likely group B streptococcus. Rapidly progressing and hence started on clindamycin/ Rocephin. Await blood cultures. Continue close monitoring, lactic acid trending. Current lactic acid 2.6. On crystalloids. 05/05-wound care consulted. White count at 15.5. 47% bands. Worsening lower extremity redness. Wound care recommends CT scan to rule out osteomyelitis. Blood cultures negative so far. Antibiotic spectrum extended with clindamycin along with Rocephin. Patient however feeling better than previous day and able to bear weight and ambulate. Start aggressive diuresis in light of significant lymphedema. 05/06-patient doing a lot better. Improve lymphedema/redness and pain. CT scan lower extremity shows significant cellulitis/myositis. White count downtrending to 13.1 with downtrending bandemia from afebrile. Blood cultures negative so far. Able to bear weight and ongoing physical therapy. Wound care ongoing. Antibiotics escalated to Zosyn/vancomycin. Possible discharge in 48 hours if continues to improve clinically. Will need outpatient IV antibiotics. No family at bedside. Diuresing well 05/07-patient clinically improving. Improved lower extremity redness pain. Improved leukocytosis down to 9.9 with resolving bandemia. Fever 100.3 this morning. Potassium down to 2.9 on aggressive potassium replacement 120 mg. Continue diuresis. Possible discharge in 24-48 hours with outpatient antibiotics. Blood cultures positive for gram-positive bacilli. Will target antibiotics through May 15. 05/08 Pt seen examined, still has pain in the leg, and erythema, pt reports improvement from admission, but the pic since admission show much less erythema. BC is GPC one bottle, pt wbc count is up today, but is afebrile. CT was neg for abscess n admission. will continue with IV vanco and zosyn for now, monitor for response. 05/09 Patient seen examined no acute overnight issues, feels pain is worse, her lower extermity is more tender and there is some sloughing of the skin, X ray neg for air, USG done neg for abscess, but clinically pt pain is worse, I am not sure how much area was covered by USG looking at the image, I doubt if the entire involved region was covered. Will repeat CT lower extremity with contrast to see if any significant change is present. 05/10 Patient seen and examined lying in bed comfortable. Overnight events noted. She was febrile with a temperature of 101. Repeat blood cultures sent. Labs today show worsening WBC count. Clinically however patient is much better, CT scan done yesterday shows improved cellulitis compared to yesterday. Chest x -ray is negative. The patient's leg also appears to be better. I have increased the dose of Zosyn from 2.25 every 6 to 3.375 every 6, pt to continu on vanco appreciate wound care help. 05/11 Pt seen examined still has erythema and pain, wbc trending up, low grade fever prese given some repsonse to IV abx, but not much, will see if she needs surgical debridement to help with the wound. consult Dr Miles 05/12 Pt seen examined, no acute complaints, still has low grade temperature procalcitonin to be checked, WBC is trending up started on ciprofloxacin yesterday Pt notes that there may have been some rat dropping in the hotel in [facility] where she was , her friend also developed cellulitis? She is not admitted though Appreciated Dr Miles input, cultures sent will see what organisism grow. Pertinent ROS: Denies headache, dizziness Denies chest pain, palpitations Denies cough or shortness of breath Denies abdominal pain, nausea or vomiting. Pain in the left lower extremity present - Constitutional Vitals: Vital Signs Temp Pulse Resp BP Pulse Ox 98.2 F 67 18 112/60 97 05/12/18 06:58 05/12/18 06:58 05/12/18 06:58 05/12/18 06:58 05/12/18 06:58 Period Temp Pulse Resp BP Sys/Tobar Pulse Ox Last 24 Hr 98.1 F-100.6 F 67-79 18-20 97-138/47-64 91-97 Intake and Output 05/11/18 05/12/18 05/12/18 21:59 05:59 13:59 Intake Total 350 / 350 250 / 250 250 / 250 Output Total 400 / 400 150 / 150 Balance -50 / -50 100 / 100 250 / 250 Weight 149 lb Intake & Output: Intake & Output 05/11/18 05/12/18 05/12/18 21:59 05:59 13:59 Intake Total 350 / 350 250 / 250 250 / 250 Output Total 400 / 400 150 / 150 Balance -50 / -50 100 / 100 250 / 250 Weight 149 lb Intake: IV 250 / 250 50 / 50 250 / 250 Zosyn 3.375 gm In Dextrose 5% 50 / 50 50 / 50 50 / 50 in Water 50 ml @ 100 mls/hr IV Q6H [facility] Rx#:[id number] Oral 100 / 100 200 / 200 Output: Void Amount 400 / 400 150 / 150 Other: Meal Dinner Percent of Meal Consumed 25% Urine Appearance Clear Clear Urine Color Straw Straw Urine Odor Normal Normal Stool Size Small Large Stool Color Brown Brown Black Stool Consistency Loose Liquid Watery Loose # Bowel Movements 1 Exam: Constitutional; Afebrile, cooperative, alert, not in distress. Neck- Midline trachea, supple Respiratory system: Air Entry equal on both sides, No crackles or wheezing, no rhonchi. CVS- Rate rhythm regular, S1,S2 heard, no gallop, no rub. 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 . Medical - PN: Obj Da - Labs CBC & Chem 7: 05/12/18 04:40 05/12/18 04:40 Labs: Abnormal Lab Results 05/12/18 05/12/18 05/11/18 04:40 04:40 04:10 WBC 24.3 H RBC 3.26 L Hgb 10.1 L Hct 30.2 L MPV Seg Neutrophils % 88 H Lymphocytes % 8 L Myelocytes % 1 H WBC Morphology Toxic Granulation Potassium 3.1 L Glucose Calcium 8.4 L 8.5 L Lactate Dehydrogenase 269 H 274 H Albumin 2.3 L 2.3 L Globulin 4.4 H 4.6 H Albumin/Globulin Ratio 0.5 L 0.5 L Triglycerides 153 H 12/12/18 12/11/18 12/11/18 04:10 00:35 00:35 WBC 19.3 H 16.8 H RBC 3.60 L Hgb 11.1 L Hct 33.0 L MPV 7.3 L 7.3 L Seg Neutrophils % Lymphocytes % Myelocytes % WBC Morphology Abnorm A Abnorm A Toxic Granulation 1+ A 1+ A Potassium Glucose 137 H Calcium Lactate Dehydrogenase 336 H Albumin 2.5 L Globulin 4.9 H Albumin/Globulin Ratio 0.5 L Triglycerides Meds: Medications Acetaminophen (Tylenol) 650 mg PO Q4-6HP PRN PRN Reason: PAIN/FEVER > 101 Last Admin: 05/12/18 09:12 Dose: 650 mg Albuterol/Ipratropium (Duoneb) 3 ml NEB Q4HP PRN PRN Reason: Shortness Of Breath Or Wheezing Docusate Sodium (Colace) 100 mg PO BID [facility] Last Admin: 05/12/18 08:57 Dose: Not Given Furosemide (Lasix) 20 mg IV BIDD [facility] Last Admin: 05/12/18 08:57 Dose: 20 mg Heparin Sodium (Porcine) (Heparin) 5,000 unit SQ Q12 [facility] Last Admin: 05/12/18 08:57 Dose: 5,000 unit Magnesium Sulfate (Magnesium Sulfate) 2 gm in 50 mls @ 50 mls/hr IV UD PRN PRN Reason: MG = or < 1.7 Acetaminophen (Ofirmev) 1,000 mg in 100 mls @ 200 mls/hr IV Q6HP PRN PRN Reason: PAIN/FEVER > 101 Vancomycin HCl 1,500 mg/ (Sodium Chloride) 500 mls @ 333.3 mls/hr IV DAILY [facility] Last Admin: 05/12/18 09:59 Dose: 333 mls/hr Piperacillin Sod/Tazobactam (Sod 3.375 gm/ Dextrose) 50 mls @ 100 mls/hr IV Q6H [facility] Last Infusion: 05/12/18 08:36 Dose: Infused Ciprofloxacin (Cipro) 400 mg in 200 mls @ 200 mls/hr IV Q12H [facility] Last Infusion: 05/12/18 08:36 Dose: Infused Iron Carb/Multivit/Diabetologist/Folic Acid (Multivitamin W/Minerals) 1 tab PO DAILY [facility] Last Admin: 05/12/18 08:58 Dose: 1 tab Ondansetron HCl (Zofran) 4 mg IV Q4-6HP PRN PRN Reason: Nausea And Vomiting Oxandrolone (Oxandrin) 5 mg PO BID [facility] Last Admin: 05/12/18 09:11 Dose: 5 mg Oxycodone HCl (Roxicodone) 5 mg PO Q4HP PRN PRN Reason: pain not responding to tylenol Last Admin: 05/12/18 11:08 Dose: 5 mg Potassium Chloride (Klor-Con) 40 meq PO DAILYP PRN PRN Reason: K+ < 3.5 Last Admin: 05/12/18 07:16 Dose: 40 meq Senna/Docusate Sodium (Senna Plus Tablet) 1 tab PO HS [facility] Last Admin: 05/11/18 21:30 Dose: Not Given Sodium Chloride (Saline Flush) 10 ml IV Q8 [facility] Last Admin: 05/12/18 06:16 Dose: 10 ml Vancomycin HCl (Vancomycin Per Pharmacy) 1 order IV UD [facility] Medical - PN: A/P - Time Spent With Patient Total time spent is greater than 50% in coordination of care (as documented) at patient's floor/unit and/or counseling patient: - Narrative A/P Narrative: A/P Severe sepsis with GPC bacteremia, - hemodynamically stable, but wbc is trending up again, procalcitonin is 1, was 20 on admission, recheck today. Blood culture is growing gram positive bacillus, repeat culture are negative. Surgery consult appreciated. wound cultures sent. Severe cellulitis- On IV antibiotics, appreciate Help from wound care, repeat CT shows improving cellulitis. continue on IV vancomycin and IV zosyn, dose of zosyn adjusted. Continue limb elevation and local wound care. STarted on cipro, Will read up to see if rat droppings may be associated with any skin cellulitis , Hypokalemia- K stable, replace contraction alkalosis- Bicarb stable, monitor for now, no need for diamox at present. h/o lung mass/ followed by oncology dr roberts DVT hep sq Full code * Medical - PN: Qual - VTE Deep Vein Thrombosis/Pulmonary Embolism Present on Admission: No
--- NOTE | 2018-05-12 15:11 | General Surgery Progress Note ---
Subjective Patient reports: other (I saw this patient along with the nursing staff. Discussed her situation with Dr. PERKINS and Yuli.) Narrative: Note initiated : 05/12/18 at 3:08 pm Service Date, if different from initiated Date: [] Patient: Lynette Salamanca 82 y/o F admitted on 05/04/18 for fever, nausea. Chief Complaint: [] Objective Temp Pulse Resp BP Pulse Ox 98.2 F 67 18 112/60 97 05/12/18 06:58 05/12/18 06:58 05/12/18 06:58 05/12/18 06:58 05/12/18 06:58 AVSS. No acute interval changes in general physical examination., LE: Erythema and tenderness along the anterior aspect of left leg is less but on the posterior aspects is still has edema and adherent squamous locks to the skin and subcutaneous tissue. Lab results reviewed. WBC continues to be elevated and is trending up. Noted interval development from yesterday. Await results of the tests performed. - Additional Data Intake & Output - Last 24 hours: Intake & Output 05/10/18 05/11/18 05/12/18 05/13/18 05:59 05:59 05:59 05:59 Intake Total 1650 / 1650 3020 / 3020 1200 / 1200 750 / 750 Output Total 1400 / 1400 1000 / 1000 800 / 800 Balance 250 / 250 3019 / 3019 200 / 200 -50 / -50 Weight 149 lb 152 lb 149 lb - Labs 05/12/18 04:40 05/12/18 04:40 Diabetes panel 05/12/18 Range/Units 04:40 Sodium 134 (133-145) mmol/L Potassium 3.1 L (3.3-5.1) mmol/L Chloride 97 (96-108) mmol/L Carbon Dioxide 26 (22-30) mmol/L BUN 9 (8-23) mg/dl Creatinine 0.9 (0.6-1.1) mg/dl Glucose 96 (70-105) mg/dL Calcium 8.4 L (8.6-10.4) mg/dl AST 19 (0-37) U/l ALT 14 (0-40) U/l Alkaline Phosphatase 84 (39-117) U/L Total Protein 6.7 (5.9-8.4) gm/dL Albumin 2.3 L (3.2-5.2) gm/dL Triglycerides 153 H (<150) mg/dl Calcium panel 05/12/18 Range/Units 04:40 Calcium 8.4 L (8.6-10.4) mg/dl Phosphorus 3.0 (2.7-4.5) mg/dL Albumin 2.3 L (3.2-5.2) gm/dL Pituitary panel 05/12/18 Range/Units 04:40 Sodium 134 (133-145) mmol/L Potassium 3.1 L (3.3-5.1) mmol/L Chloride 97 (96-108) mmol/L Carbon Dioxide 26 (22-30) mmol/L BUN 9 (8-23) mg/dl Creatinine 0.9 (0.6-1.1) mg/dl Glucose 96 (70-105) mg/dL Calcium 8.4 L (8.6-10.4) mg/dl Adrenal panel 05/12/18 Range/Units 04:40 Sodium 134 (133-145) mmol/L Potassium 3.1 L (3.3-5.1) mmol/L Chloride 97 (96-108) mmol/L Carbon Dioxide 26 (22-30) mmol/L BUN 9 (8-23) mg/dl Creatinine 0.9 (0.6-1.1) mg/dl Glucose 96 (70-105) mg/dL Calcium 8.4 L (8.6-10.4) mg/dl Total Bilirubin 0.4 (0.0-1.0) mg/dL AST 19 (0-37) U/l ALT 14 (0-40) U/l Alkaline Phosphatase 84 (39-117) U/L Total Protein 6.7 (5.9-8.4) gm/dL Albumin 2.3 L (3.2-5.2) gm/dL Assessment and Plan (1) Myositis of left lower leg Problem details: NO EVIDENCE OF SKIN BREAKDOWN / OR DISCRETE SKIN AND SUB CUTNEOUS LESION Status: Acute Current Visit: Yes - Time Spent With Patient Total time spent is greater than 50% in coordination of care (as documented) at patient's floor/unit and/or counseling patient: Assessment: Following developments. Nothing more to add at this time. Plan: Following patient along with you. less than 15 minutes
[2018-05-12] MEDS ORDERED: CELECOXIB 200 MG CAPSULE PO ONE (18:28)
[2018-05-12] MEDS ORDERED: oxyCODONE HCL 5 MG TABLET PO ONE (18:55)
[2018-05-12] MEDS: SENNOSIDES/DOCUSATE SODIUM 1 TAB TABLET PO SCH (21:16)
[2018-05-13] MEDS: PIPERACILLIN SODIUM/TAZOBACTAM 3.375 GM in DEXTROSE 5% IN WATER 50 ML IV SCH ×5 (00:14→23:21)
[2018-05-13] MEDS: oxyCODONE HCL 5 MG TABLET PO PRN ×7 (01:49→21:44)
[2018-05-13] MEDS: ACETAMINOPHEN 325 MG TABLET PO PRN ×2 (04:46→19:04)
[2018-05-13] MEDS: 0.9 % SODIUM CHLORIDE 10 ML SYRINGE IV SCH ×4 (05:58→20:14)
[2018-05-13 07:12] LABS: ALT/SGPT 16 U/l (0-40); Albumin 2.2 gm/dL (3.2-5.2); Albumin/Globulin Ratio 0.5 (1.0-2.3); Alkaline Phosphatase 74 U/L (39-117); Bilirubin,Direct < 0.2 mg/dL (0.0-0.3); Blood Urea Nitrogen 7 mg/dl (8-23); Gamma Glutamyl Transpeptidase 28 U/L (5-36); Uric Acid 3.6 mg/dL (2.5-8.0)
[2018-05-13] MEDS: FUROSEMIDE 20 MG/2 ML VIAL IV SCH (07:26)
[2018-05-13] MEDS ORDERED: HYDROmorphone 2 MG/ML VIAL IV ONE (08:48)
[2018-05-13] MEDS ORDERED: HYDROmorphone 2 MG/ML VIAL ONE (08:50)
[2018-05-13] MEDS: CIPROFLOXACIN 400 MG/200 ML BAG IV SCH ×3 (08:57→21:14)
[2018-05-13] MEDS ORDERED: CELECOXIB 200 MG CAPSULE PO SCH (09:00)
[2018-05-13 09:36] LABS: Mean Cell Volume 91.8 fL (80.0-100.0); Mean Corpuscular HGB Conc 33.5 g/dL (31.0-36.0); Mean Corpuscular Hemoglobin 30.8 pg (26.0-34.0); Platelet Count 486 K/mcL (140-440); RBC 3.39 M/mcL (4.00-5.20); Red Cell Distribution Width 13.4 % (11.5-14.5)
[2018-05-13] MEDS: MULTIVIT,THER IRON,CA,FA & MIN 1 TABLET PO SCH (09:43)
[2018-05-13] MEDS: HEPARIN 5,000 UNIT/ML VIAL SQ SCH ×2 (09:44→20:13)
[2018-05-13] MEDS: DOCUSATE SODIUM 100 MG CAPSULE PO SCH ×2 (09:44→20:12)
[2018-05-13] MEDS: OXANDROLONE 2.5 MG TABLET PO SCH ×2 (09:49→20:13)
[2018-05-13] MEDS ORDERED: 0.9 % SODIUM CHLORIDE 10 ML SYRINGE IV PRN ×2 (10:38→15:11)
[2018-05-13 10:50] LABS: Lymphocytes % 9 % (15-49); Monocytes % (Manual) 8 % (1-12); Platelet Estimate INCREASED (NORMAL); RBC Morphology NORMAL (NORMAL); Segmented Neutrophils % 83 % (38-78)
[2018-05-13] MEDS: VANCOMYCIN 1,500 MG in 0.9 % SODIUM CHLORIDE 500 ML IV SCH (11:12)
--- NOTE | 2018-05-13 12:43 | Internal Med Progress Note ---
Medical - PN: Subj Patient information: Note initiated : 05/13/18 at 12:36 pm Service Date, if different from initiated Date: [] Patient: Lynette Salamanca 82 y/o F admitted on 05/04/18 for fever, nausea. Chief Complaint: [] Interval history: 05/04-patient admitted with left lower extremity lymphangitis/cellulitis likely group B streptococcus. Rapidly progressing and hence started on clindamycin/ Rocephin. Await blood cultures. Continue close monitoring, lactic acid trending. Current lactic acid 2.6. On crystalloids. 05/05-wound care consulted. White count at 15.5. 47% bands. Worsening lower extremity redness. Wound care recommends CT scan to rule out osteomyelitis. Blood cultures negative so far. Antibiotic spectrum extended with clindamycin along with Rocephin. Patient however feeling better than previous day and able to bear weight and ambulate. Start aggressive diuresis in light of significant lymphedema. 05/06-patient doing a lot better. Improve lymphedema/redness and pain. CT scan lower extremity shows significant cellulitis/myositis. White count downtrending to 13.1 with downtrending bandemia from afebrile. Blood cultures negative so far. Able to bear weight and ongoing physical therapy. Wound care ongoing. Antibiotics escalated to Zosyn/vancomycin. Possible discharge in 48 hours if continues to improve clinically. Will need outpatient IV antibiotics. No family at bedside. Diuresing well 05/07-patient clinically improving. Improved lower extremity redness pain. Improved leukocytosis down to 9.9 with resolving bandemia. Fever 100.3 this morning. Potassium down to 2.9 on aggressive potassium replacement 120 mg. Continue diuresis. Possible discharge in 24-48 hours with outpatient antibiotics. Blood cultures positive for gram-positive bacilli. Will target antibiotics through May 15. 05/08 Pt seen examined, still has pain in the leg, and erythema, pt reports improvement from admission, but the pic since admission show much less erythema. BC is GPC one bottle, pt wbc count is up today, but is afebrile. CT was neg for abscess n admission. will continue with IV vanco and zosyn for now, monitor for response. 05/09 Patient seen examined no acute overnight issues, feels pain is worse, her lower extermity is more tender and there is some sloughing of the skin, X ray neg for air, USG done neg for abscess, but clinically pt pain is worse, I am not sure how much area was covered by USG looking at the image, I doubt if the entire involved region was covered. Will repeat CT lower extremity with contrast to see if any significant change is present. 05/10 Patient seen and examined lying in bed comfortable. Overnight events noted. She was febrile with a temperature of 101. Repeat blood cultures sent. Labs today show worsening WBC count. Clinically however patient is much better, CT scan done yesterday shows improved cellulitis compared to yesterday. Chest x -ray is negative. The patient's leg also appears to be better. I have increased the dose of Zosyn from 2.25 every 6 to 3.375 every 6, pt to continue on vanco appreciate wound care help. 05/11 Pt seen examined still has erythema and pain, wbc trending up, low grade fever prese given some repsonse to IV abx, but not much, will see if she needs surgical debridement to help with the wound. consult Dr Miles 05/12 Pt seen examined, no acute complaints, still has low grade temperature procalcitonin to be checked, WBC is trending up started on ciprofloxacin yesterday Pt notes that there may have been some rat dropping in the hotel in [facility] where she was , her friend also developed cellulitis? She is not admitted though Appreciated Dr Miles input, cultures sent will see what organisism grow. 05/13 Patient seen examined, no acute overnight issues, afebrile, wbc down to 19K pt leg is not much better, slightly worse today than yesterday, increased sloughing and discharge, pt leg is still warm and tender to touch Plan for skin biopsy today talked with the lab regarding fungal cultures/ sporothrix? h/o patient working in garden with just slippers also given travel to [facility], will send for AFB and mycobacteria cultures. After biopsy consider starting on itraconazole and doxycycline. GET PICC Line today Pertinent ROS: Denies headache, dizziness Denies chest pain, palpitations Denies cough or shortness of breath Denies abdominal pain, nausea or vomiting. - Constitutional Vitals: Vital Signs Temp Pulse Resp BP Pulse Ox 98.9 F 82 16 142/74 96 05/13/18 11:30 05/13/18 04:46 05/13/18 11:30 05/13/18 11:30 05/13/18 11:30 Period Temp Pulse Resp BP Sys/Tobar Pulse Ox Last 24 Hr 98.1 F-98.9 F 66-87 16-20 104-143/52-74 94-99 Intake and Output 05/12/18 05/13/18 05/13/18 21:59 05:59 13:59 Intake Total 340 / 340 1050 / 1050 50 / 50 Output Total 1050 / 1050 350 / 350 400 / 400 Balance -710 / -710 700 / 700 -350 / -350 Weight 151 lb Intake & Output: Intake & Output 05/12/18 05/13/18 05/13/18 21:59 05:59 13:59 Intake Total 340 / 340 1050 / 1050 50 / 50 Output Total 1050 / 1050 350 / 350 400 / 400 Balance -710 / -710 700 / 700 -350 / -350 Weight 151 lb Intake: IV 100 / 100 250 / 250 50 / 50 Zosyn 3.375 gm In Dextrose 5% 100 / 100 50 / 50 50 / 50 in Water 50 ml @ 100 mls/hr IV Q6H [facility] Rx#:[id number] Oral 240 / 240 800 / 800 Output: Void Amount 250 / 250 350 / 350 Urine/Stool Mix 800 / 800 400 / 400 Other: Meal Dinner Percent of Meal Consumed 75% Feeding Ability Independent Urine Appearance Clear Urine Color Straw Urine Odor Normal Stool Size Moderate Stool Color Brown Stool Consistency Soft Loose Exam: Constitutional; Afebrile, cooperative, alert, not in distress. Respiratory system: Air Entry equal on both sides, No crackles or wheezing, no rhonchi. CVS- Rate rhythm regular, S1,S2 heard, no gallop, no rub. Abdomen- Soft nontender abdomen, no organomegaly, no tenderness, no guarding or rigidity, SPEEDER TENDER- AOOx3, moving all extremities, no gross focal deficit noted. Right leg steamer tender, warm and red, some exudates from the extremity, serosanginous, some slough, Medical - PN: Obj Da - Labs CBC & Chem 7: 05/13/18 07:50 05/13/18 04:10 Labs: Abnormal Lab Results 05/13/18 05/13/18 05/12/18 07:50 04:10 04:40 WBC 19.1 H RBC 3.39 L Hgb 10.4 L Hct 31.1 L Plt Count 486 H MPV 7.3 L Seg Neutrophils % 83 H Lymphocytes % 9 L Myelocytes % WBC Morphology Toxic Granulation Potassium 3.1 L BUN 7 L Calcium 8.3 L 8.4 L Lactate Dehydrogenase 313 H 269 H Albumin 2.2 L 2.3 L Globulin 4.8 H 4.4 H Albumin/Globulin Ratio 0.5 L 0.5 L Triglycerides 211 H 153 H 05/12/18 05/11/18 05/11/18 04:40 04:10 04:10 WBC 24.3 H 19.3 H RBC 3.26 L 3.60 L Hgb 10.1 L 11.1 L Hct 30.2 L 33.0 L Plt Count MPV 7.3 L Seg Neutrophils % 88 H Lymphocytes % 8 L Myelocytes % 1 H WBC Morphology Abnorm A Toxic Granulation 1+ A Potassium BUN Calcium 8.5 L Lactate Dehydrogenase 274 H Albumin 2.3 L Globulin 4.6 H Albumin/Globulin Ratio 0.5 L Triglycerides Meds: Medications Acetaminophen (Tylenol) 650 mg PO Q4-6HP PRN PRN Reason: PAIN/FEVER > 101 Last Admin: 05/13/18 04:46 Dose: 650 mg Albuterol/Ipratropium (Duoneb) 3 ml NEB Q4HP PRN PRN Reason: Shortness Of Breath Or Wheezing Celecoxib (Celebrex) 200 mg PO DAILY [facility] Last Admin: 05/13/18 09:44 Dose: 200 mg Docusate Sodium (Colace) 100 mg PO BID [facility] Last Admin: 05/13/18 09:44 Dose: Not Given Furosemide (Lasix) 20 mg IV BIDD [facility] Last Admin: 05/13/18 07:26 Dose: 20 mg Heparin Sodium (Porcine) (Heparin) 5,000 unit SQ Q12 [facility] Last Admin: 05/13/18 09:44 Dose: 5,000 unit Heparin Sodium (Porcine) (Heparin Flush) 2 ml IV Q12 [facility] Magnesium Sulfate (Magnesium Sulfate) 2 gm in 50 mls @ 50 mls/hr IV UD PRN PRN Reason: MG = or < 1.7 Acetaminophen (Ofirmev) 1,000 mg in 100 mls @ 200 mls/hr IV Q6HP PRN PRN Reason: PAIN/FEVER > 101 Vancomycin HCl 1,500 mg/ (Sodium Chloride) 500 mls @ 333.3 mls/hr IV DAILY [facility] Last Admin: 05/13/18 11:12 Dose: 333 mls/hr Piperacillin Sod/Tazobactam (Sod 3.375 gm/ Dextrose) 50 mls @ 100 mls/hr IV Q6H [facility] Last Infusion: 05/13/18 07:26 Dose: Infused Ciprofloxacin (Cipro) 400 mg in 200 mls @ 200 mls/hr IV Q12H [facility] Last Admin: 05/13/18 11:10 Dose: 200 mls/hr Iron Carb/Multivit/[place]/Folic Acid (Multivitamin W/Minerals) 1 tab PO DAILY [facility] Last Admin: 05/13/18 09:43 Dose: 1 tab Ondansetron HCl (Zofran) 4 mg IV Q4-6HP PRN PRN Reason: Nausea And Vomiting Oxandrolone (Oxandrin) 5 mg PO BID [facility] Last Admin: 05/13/18 09:49 Dose: 5 mg Oxycodone HCl (Roxicodone) 5 - 10 mg PO Q4HP PRN PRN Reason: pain not responding to tylenol Last Admin: 05/13/18 09:43 Dose: 5 mg Potassium Chloride (Klor-Con) 40 meq PO DAILYP PRN PRN Reason: K+ < 3.5 Last Admin: 05/12/18 07:16 Dose: 40 meq Senna/Docusate Sodium (Senna Plus Tablet) 1 tab PO HS [facility] Last Admin: 05/12/18 21:16 Dose: Not Given Sodium Chloride (Saline Flush) 10 ml IV Q8 [facility] Last Admin: 05/13/18 05:58 Dose: 10 ml Sodium Chloride (Saline Flush) 10 ml IV UD PRN PRN Reason: FLUSH Sodium Chloride (Saline Flush) 10 ml IV Q12 [facility] Vancomycin HCl (Vancomycin Per Pharmacy) 1 order IV UD [facility] Medical - PN: A/P - Time Spent With Patient Total time spent is greater than 50% in coordination of care (as documented) at patient's floor/unit and/or counseling patient: - Narrative A/P Narrative: A/P Severe sepsis with GPC bacteremia, - hemodynamically stable, but wbc is 19K, procalcitonin is 0.5 but clinically leg is not any better. Patient had GP Bacillus in blood culture bottle which was not speciated by the lab her. This will be sent to a reference lab for further isolation and speciation. Severe cellulitis- On IV antibiotics, appreciate Help from wound care, repeat CT shows improving cellulitis. continue on IV vancomycin and IV zosyn, dose of zosyn adjusted. Continue limb elevation and local wound care. Started on cipro, day 2 today No clear documentation of rat dropping and cellulitis will send repeat fungal cultures, send AFB and mycobacterial cultures wt today 's skin biopsy. start on doxy after biopsy, consider starting on itraconazole 200mg daily for possible sporthrix infection/ fungal infection (will do more review, usually these do not cause much pain) . pain Control. -on oxycodone , tylenol and Celebrex which is not helping add gabapentin. Hypokalemia- K stable, replace contraction alkalosis- Bicarb stable, monitor for now, no need for diamox at present. h/o lung mass/ followed by oncology dr roberts, repeat x ray is clear DVT hep sq Full code * Medical - PN: Qual - VTE Deep Vein Thrombosis/Pulmonary Embolism Present on Admission: No
[2018-05-13] MEDS ORDERED: HYDROmorphone 2 MG/ML VIAL IV PRN (12:53)
[2018-05-13] MEDS ORDERED: KETAMINE 100 MG/ML ML IV ONE (13:45)
[2018-05-13] MEDS ORDERED: LIDOCAINE HCL/PF 100 MG/5 ML SYRINGE IV ONE (13:45)
[2018-05-13] MEDS ORDERED: PROPOFOL 200 MG/20 ML VIAL IV ONE (13:45)
[2018-05-13] MEDS ORDERED: GLYCOPYRROLATE 0.2 MG/ML VIAL IV ONE (13:45)
[2018-05-13] MEDS ORDERED: ONDANSETRON 4 MG/2 ML VIAL IV ONE (13:45)
[2018-05-13] MEDS ORDERED: fentaNYL 100 MCG/2 ML VIAL IV ONE (13:45)
[2018-05-13] MEDS ORDERED: MIDAZOLAM 2 MG/2 ML VIAL IV ONE (13:45)
[2018-05-13] MEDS ORDERED: GABAPENTIN 100 MG CAPSULE PO SCH (14:00)
[2018-05-13] MEDS ORDERED: fentaNYL 100 MCG/2 ML VIAL IV PRN (14:04)
[2018-05-13] MEDS ORDERED: IPRATROPIUM/ALBUTEROL 3 ML AMPUL.NEB NEB PRN ×2 (14:04→15:11)
[2018-05-13] MEDS ORDERED: LACTATED RINGERS 1,000 ML IV SCH (14:15)
--- NOTE | 2018-05-13 14:16 | Brief Operative Note ---
Date of procedure: 05/13/18 Pre-op diagnosis: necrotizing cellulitis left leg Post-op diagnosis: other (necrotizing cellulitis left leg) Procedure: skin and subcutaneous tissue biopsy and culture left leg Grafts/Implants: No Anesthesia: GLMA Findings: severe cellulitis with multiple areas of necrosis of skin and subcutaneous tissue of medial lower leg Complications: none Surgeon: Gume Miles Estimated blood loss (cc): 5 Specimens Removed/Pathology: other (wound culture and soft tissue) Condition: stable Disposition: PACU
[2018-05-13] MEDS ORDERED: MAGNESIUM SULFATE 2 GM/50 ML BAG IV PRN (15:11)
[2018-05-13] MEDS ORDERED: POTASSIUM CHLORIDE 20 MEQ PACKET PO PRN (15:11)
[2018-05-13] MEDS ORDERED: VANCOMYCIN PER PHARMACY IV SCH (15:11)
[2018-05-13] MEDS ORDERED: ONDANSETRON 4 MG/2 ML VIAL IV PRN (15:11)
[2018-05-13] MEDS: DOXYCYCLINE HYCLATE 100 MG TABLET.ORL PO SCH (20:12)
[2018-05-13] MEDS: SENNOSIDES/DOCUSATE SODIUM 1 TAB TABLET PO SCH (20:14)
[2018-05-13] MEDS: GABAPENTIN 100 MG CAPSULE PO SCH (20:14)
[2018-05-13] MEDS ORDERED: 0.9 % SODIUM CHLORIDE 10 ML SYRINGE IV SCH (21:00)
[2018-05-14] MEDS: oxyCODONE HCL 5 MG TABLET PO PRN ×4 (03:51→15:34)
[2018-05-14] MEDS: ACETAMINOPHEN 325 MG TABLET PO PRN ×2 (03:51→11:25)
[2018-05-14] MEDS: PIPERACILLIN SODIUM/TAZOBACTAM 3.375 GM in DEXTROSE 5% IN WATER 50 ML IV SCH (05:39)
[2018-05-14] MEDS: 0.9 % SODIUM CHLORIDE 10 ML SYRINGE IV SCH ×5 (05:40→21:38)
[2018-05-14 05:57] LABS: Mean Cell Volume 93.4 fL (80.0-100.0); Mean Corpuscular Hemoglobin 30.8 pg (26.0-34.0); Platelet Count 514 K/mcL (140-440); RBC 3.31 M/mcL (4.00-5.20); Red Cell Distribution Width 13.8 % (11.5-14.5)
[2018-05-14 06:18] LABS: ALT/SGPT 12 U/l (0-40); Albumin 2.2 gm/dL (3.2-5.2); Albumin/Globulin Ratio 0.5 (1.0-2.3); Alkaline Phosphatase 71 U/L (39-117); Bilirubin,Direct < 0.2 mg/dL (0.0-0.3); Blood Urea Nitrogen 10 mg/dl (8-23); Gamma Glutamyl Transpeptidase 28 U/L (5-36)
[2018-05-14] MEDS: HYDROmorphone 2 MG/ML VIAL IV PRN ×2 (06:18→14:02)
[2018-05-14] MEDS: GABAPENTIN 100 MG CAPSULE PO SCH (06:23)
[2018-05-14 06:32] LABS: Band Neutrophils % 10 % (0-10); Lymphocytes % 8 % (15-49); Monocytes % (Manual) 4 % (1-12); Platelet Estimate INCREASED (NORMAL); RBC Morphology NORMAL (NORMAL); Segmented Neutrophils % 78 % (38-78)
[2018-05-14] MEDS: CIPROFLOXACIN 400 MG/200 ML BAG IV SCH ×2 (08:00→21:22)
[2018-05-14] MEDS: FUROSEMIDE 40 MG TABLET PO SCH (08:00)
[2018-05-14] MEDS: OXANDROLONE 2.5 MG TABLET PO SCH ×2 (08:01→21:21)
[2018-05-14] MEDS: MULTIVIT,THER IRON,CA,FA & MIN 1 TABLET PO SCH (08:01)
[2018-05-14] MEDS: DOXYCYCLINE HYCLATE 100 MG TABLET.ORL PO SCH ×2 (08:02→21:21)
[2018-05-14] MEDS: HEPARIN 5,000 UNIT/ML VIAL SQ SCH ×2 (08:03→21:22)
[2018-05-14] MEDS: DOCUSATE SODIUM 100 MG CAPSULE PO SCH ×3 (08:03→21:24)
[2018-05-14] MEDS ORDERED: CELECOXIB 200 MG CAPSULE PO SCH (09:00)
[2018-05-14] MEDS ORDERED: VANCOMYCIN 1,500 MG in 0.9 % SODIUM CHLORIDE 500 ML IV SCH (09:00)
[2018-05-14] MEDS ORDERED: FUROSEMIDE 40 MG TABLET PO SCH (09:00)
[2018-05-14] MEDS: ERTAPENEM 1 GM in 0.9 % SODIUM CHLORIDE 50 ML IV SCH (10:48)
--- NOTE | 2018-05-14 13:44 | Internal Med Progress Note ---
Medical - PN: Subj Patient information: Note initiated : 05/14/18 at 1:42 pm Service Date, if different from initiated Date: [] Patient: Lynette Salamanca 82 y/o F admitted on 05/04/18 for fever, nausea. Chief Complaint: [] Interval history: 05/04-patient admitted with left lower extremity lymphangitis/cellulitis likely group B streptococcus. Rapidly progressing and hence started on clindamycin/ Rocephin. Await blood cultures. Continue close monitoring, lactic acid trending. Current lactic acid 2.6. On crystalloids. 05/05-wound care consulted. White count at 15.5. 47% bands. Worsening lower extremity redness. Wound care recommends CT scan to rule out osteomyelitis. Blood cultures negative so far. Antibiotic spectrum extended with clindamycin along with Rocephin. Patient however feeling better than previous day and able to bear weight and ambulate. Start aggressive diuresis in light of significant lymphedema. 05/06-patient doing a lot better. Improve lymphedema/redness and pain. CT scan lower extremity shows significant cellulitis/myositis. White count downtrending to 13.1 with downtrending bandemia from afebrile. Blood cultures negative so far. Able to bear weight and ongoing physical therapy. Wound care ongoing. Antibiotics escalated to Zosyn/vancomycin. Possible discharge in 48 hours if continues to improve clinically. Will need outpatient IV antibiotics. No family at bedside. Diuresing well 05/07-patient clinically improving. Improved lower extremity redness pain. Improved leukocytosis down to 9.9 with resolving bandemia. Fever 100.3 this morning. Potassium down to 2.9 on aggressive potassium replacement 120 mg. Continue diuresis. Possible discharge in 24-48 hours with outpatient antibiotics. Blood cultures positive for gram-positive bacilli. Will target antibiotics through May 15. 05/08 Pt seen examined, still has pain in the leg, and erythema, pt reports improvement from admission, but the pic since admission show much less erythema. BC is GPC one bottle, pt wbc count is up today, but is afebrile. CT was neg for abscess n admission. will continue with IV vanco and zosyn for now, monitor for response. 05/09 Patient seen examined no acute overnight issues, feels pain is worse, her lower extermity is more tender and there is some sloughing of the skin, X ray neg for air, USG done neg for abscess, but clinically pt pain is worse, I am not sure how much area was covered by USG looking at the image, I doubt if the entire involved region was covered. Will repeat CT lower extremity with contrast to see if any significant change is present. 05/10 Patient seen and examined lying in bed comfortable. Overnight events noted. She was febrile with a temperature of 101. Repeat blood cultures sent. Labs today show worsening WBC count. Clinically however patient is much better, CT scan done yesterday shows improved cellulitis compared to yesterday. Chest x -ray is negative. The patient's leg also appears to be better. I have increased the dose of Zosyn from 2.25 every 6 to 3.375 every 6, pt to continue on vanco appreciate wound care help. 05/11 Pt seen examined still has erythema and pain, wbc trending up, low grade fever prese given some repsonse to IV abx, but not much, will see if she needs surgical debridement to help with the wound. consult Dr Miles 05/12 Pt seen examined, no acute complaints, still has low grade temperature procalcitonin to be checked, WBC is trending up started on ciprofloxacin yesterday Pt notes that there may have been some rat dropping in the hotel in [place] where she was , her friend also developed cellulitis? She is not admitted though Appreciated Dr Miles input, cultures sent will see what organisism grow. 05/13 Patient seen examined, no acute overnight issues, afebrile, wbc down to 19K pt leg is not much better, slightly worse today than yesterday, increased sloughing and discharge, pt leg is still warm and tender to touch Plan for skin biopsy today talked with the lab regarding fungal cultures/ sporothrix? h/o patient working in garden with just slippers also given travel to [place], will send for AFB and mycobacteria cultures. After biopsy consider starting on itraconazole and doxycycline. GET PICC Line today 05/14 Patient seen examined, no acute overnight issues patient pain continues to be high, had biopsy and mulitiple cultures sent yesterday hold off on itraconazole till fungal culture are back, or atleast some indication of sporothrix d/c vanco and zosy on cipro, doxy, started on imipenum today. Pertinent ROS: Denies headache, dizziness Denies chest pain, palpitations Denies cough or shortness of breath Denies abdominal pain, nausea or vomiting. pain in the left foot remains, wound in dressing post op today - Constitutional Vitals: Vital Signs Temp Pulse Resp BP Pulse Ox 98.4 F 85 18 112/51 93 05/14/18 12:07 05/13/18 23:46 05/14/18 12:07 05/14/18 12:07 05/14/18 12:07 Period Temp Pulse Resp BP Sys/Tobar Pulse Ox Last 24 Hr 97.1 F-99.2 F 72-94 - 101-148/48-65 92-97 Intake and Output 05/13/18 05/14/18 05/14/18 21:59 05:59 13:59 Intake Total 950 / 950 850 / 850 378 / 378 Output Total Balance 935 / 935 850 / 850 378 / 378 Weight 153 lb 153 lb Patient Weight 05/15/18 05:59 Weight 153 lb Intake & Output: Intake & Output 05/13/18 05/14/18 05/14/18 21:59 05:59 13:59 Intake Total 950 / 950 850 / 850 378 / 378 Output Total Balance 935 / 935 850 / 850 378 / 378 Weight 153 lb 153 lb Intake: IV 100 / 100 250 / 250 378 / 378 Zosyn 3.375 gm In Dextrose 5% 100 / 100 50 / 50 50 / 50 in Water 50 ml @ 100 mls/hr IV Q6H [facility] Rx#:[id number] Vancomycin 1,500 mg In Sodium 128 / 128 Chloride 0.9% 500 ml @ 333.3 mls/hr IV DAILY [facility] Rx#: [id number] Oral 100 / 100 600 / 600 IV - Manual Only 750 / 750 Output: Estimated Blood Loss Other: Meal Dinner Percent of Meal Consumed 100% Feeding Ability Independent Urine Appearance Clear Urine Color Straw Urine Odor Normal Stool Size Moderate Stool Color Brown Stool Consistency Soft Loose # Voids 1 Exam: Constitutional; Afebrile, cooperative, alert, not in distress. Respiratory system: Air Entry equal on both sides, No crackles or wheezing, no rhonchi. CVS- Rate rhythm regular, S1,S2 heard, no gallop, no rub. Abdomen- Soft nontender abdomen, no organomegaly, no tenderness, no guarding or rigidity, SAMPLE TESTER GRINDER- AOOx3, moving all extremities, no gross focal deficit noted. Medical - PN: Obj Da - Labs CBC & Chem 7: 05/14/18 04:08 05/14/18 04:08 Labs: Abnormal Lab Results 05/14/18 05/14/18 05/13/18 04:08 04:08 07:50 WBC 24.1 H 19.1 H RBC 3.31 L 3.39 L Hgb 10.2 L 10.4 L Hct 30.9 L 31.1 L Plt Count 514 H 486 H MPV 7.3 L 7.3 L Seg Neutrophils % 83 H Lymphocytes % 8 L 9 L Myelocytes % Potassium BUN Creatinine 1.4 H Glucose 117 H Calcium 8.5 L Lactate Dehydrogenase Albumin 2.2 L Globulin 4.7 H Albumin/Globulin Ratio 0.5 L Triglycerides 191 H 05/13/18 05/12/18 05/12/18 04:10 04:40 04:40 WBC 24.3 H RBC 3.26 L Hgb 10.1 L Hct 30.2 L Plt Count MPV Seg Neutrophils % 88 H Lymphocytes % 8 L Myelocytes % 1 H Potassium 3.1 L BUN 7 L Creatinine Glucose Calcium 8.3 L 8.4 L Lactate Dehydrogenase 313 H 269 H Albumin 2.2 L 2.3 L Globulin 4.8 H 4.4 H Albumin/Globulin Ratio 0.5 L 0.5 L Triglycerides 211 H 153 H Meds: Medications Acetaminophen (Tylenol) 650 mg PO Q4-6HP PRN PRN Reason: PAIN/FEVER > 101 Last Admin: 05/14/18 11:25 Dose: 650 mg Albuterol/Ipratropium (Duoneb) 3 ml NEB Q4HP PRN PRN Reason: Shortness Of Breath Or Wheezing Celecoxib (Celebrex) 200 mg PO DAILY [facility] Last Admin: 05/14/18 08:01 Dose: 200 mg Docusate Sodium (Colace) 100 mg PO BID [facility] Last Admin: 05/14/18 08:03 Dose: Not Given Doxycycline Hyclate (Doxycycline Hyclate) 100 mg PO BID [facility] Last Admin: 05/14/18 08:02 Dose: 100 mg Furosemide (Lasix) 40 mg PO DAILY [facility] Last Admin: 05/14/18 08:00 Dose: 40 mg Gabapentin (Neurontin) 300 mg PO Q8 [facility] Heparin Sodium (Porcine) (Heparin) 5,000 unit SQ Q12 [facility] Last Admin: 05/14/18 08:03 Dose: 5,000 unit Heparin Sodium (Porcine) (Heparin Flush) 2 ml IV Q12 [facility] Last Admin: 05/14/18 08:03 Dose: Not Given Hydromorphone HCl (Dilaudid) 0.5 mg IV Q2HP PRN PRN Reason: PAIN LEVEL > 6 Last Admin: 05/14/18 06:18 Dose: 0.5 mg Ciprofloxacin (Cipro) 400 mg in 200 mls @ 200 mls/hr IV Q12H [facility] Last Infusion: 05/14/18 12:06 Dose: Infused Magnesium Sulfate (Magnesium Sulfate) 2 gm in 50 mls @ 50 mls/hr IV UD PRN PRN Reason: MG = or < 1.7 Acetaminophen (Ofirmev) 1,000 mg in 100 mls @ 200 mls/hr IV Q6HP PRN PRN Reason: PAIN/FEVER > 101 Ertapenem 1 gm/ Sodium (Chloride) 50 mls @ 100 mls/hr IV Q24H [facility] Last Admin: 05/14/18 10:48 Dose: 100 mls/hr Iron Carb/Multivit/Building Supervisor/Folic Acid (Multivitamin W/Minerals) 1 tab PO DAILY [facility] Last Admin: 05/14/18 08:01 Dose: 1 tab Ondansetron HCl (Zofran) 4 mg IV Q4-6HP PRN PRN Reason: Nausea And Vomiting Oxandrolone (Oxandrin) 5 mg PO BID [facility] Last Admin: 05/14/18 08:01 Dose: 5 mg Oxycodone HCl (Roxicodone) 5 - 10 mg PO Q4HP PRN PRN Reason: pain not responding to tylenol Last Admin: 05/14/18 11:25 Dose: 5 mg Potassium Chloride (Klor-Con) 40 meq PO DAILYP PRN PRN Reason: K+ < 3.5 Senna/Docusate Sodium (Senna Plus Tablet) 1 tab PO HS [facility] Last Admin: 05/13/18 20:14 Dose: Not Given Sodium Chloride (Saline Flush) 10 ml IV UD PRN PRN Reason: FLUSH Sodium Chloride (Saline Flush) 10 ml IV Q8 [facility] Last Admin: 05/14/18 05:40 Dose: Not Given Sodium Chloride (Saline Flush) 10 ml IV Q12 [facility] Last Admin: 05/14/18 08:04 Dose: 10 ml Medical - PN: A/P - Time Spent With Patient Total time spent is greater than 50% in coordination of care (as documented) at patient's floor/unit and/or counseling patient: - Narrative A/P Narrative: A/P Severe sepsis with GPC bacteremia, - hemodynamically stable, but wbc is 19K, procalcitonin is 0.5 but clinically leg is not any better. Patient had GP Bacillus in blood culture bottle which was not speciated by the lab her. This will be sent to a reference lab for further isolation and speciation. Severe cellulitis- On IV antibiotics, appreciate Help from wound care, repeat CT shows improving cellulitis. hold off on itraconazole for now fungal, afb aerobic, anerobic and skin biopsy sent for evaluation Pt presently on cipro, flagly, and imipenum monitor Will talk with wound care and see if HBOT is an option. Leucocytsis- procalcitonin is trending down, was 20 on presentation, was 0.5 latest, send path smear for evaluation. pain Control. -on oxycodone , tylenol and Celebrex , increase dose of gabapentin to 300mg tid. Hypokalemia- K stable, replace contraction alkalosis- Bicarb stable, monitor for now, no need for diamox at present. h/o lung mass/ followed by oncology dr young, repeat x ray is clear Pt has lymphoplasmactic lymphoma, to cause present situation, walderstroms macroglobenimia ? will send IgM levels, serum viscosity. Reviewed the case with Dr Young, advised to get CT Abdomen and pelvis and consider a course of steroids. DVT hep sq Full code * Medical - PN: Qual - VTE Deep Vein Thrombosis/Pulmonary Embolism Present on Admission: No
[2018-05-14] MEDS: GABAPENTIN 300 MG CAPSULE PO SCH ×2 (14:19→21:44)
[2018-05-14] MEDS: 0.9 % SODIUM CHLORIDE 1,000 ML IV SCH ×2 (14:42→21:37)
[2018-05-14] MEDS ORDERED: NALOXONE HCL 0.4 MG/ML VIAL ONE (17:49)
--- NOTE | 2018-05-14 19:51 | XRay Report ---
CLINICAL INFORMATION: Hypoxia - PICC line placement COMPARISON: 05/10/2018 FINDINGS: Moderate cardiomegaly is increased. Mediastinum is unremarkable. Pulmonary vessels are mildly distended, but no edema. Minor atelectasis in the right base. Left PICC line tip is in satisfactory position overlying the SVC/right atrial junction IMPRESSION: Mild CHF Left PICC line satisfactory position overlying the SVC right atrial junction Interpreted and Authenticated by: Dago Chavez 05/14/18
[2018-05-14] MEDS: ACETAMINOPHEN 1,000 MG/100 ML BOTTLE IV PRN (20:03)
[2018-05-14] MEDS: SENNOSIDES/DOCUSATE SODIUM 1 TAB TABLET PO SCH ×2 (21:21→21:43)
[2018-05-14] MEDS ORDERED: FUROSEMIDE 40 MG/4 ML VIAL IV ONE (22:14)
[2018-05-15] MEDS: ACETAMINOPHEN 325 MG TABLET PO PRN ×2 (04:43→08:48)
[2018-05-15] MEDS: 0.9 % SODIUM CHLORIDE 10 ML SYRINGE IV SCH ×5 (05:26→21:22)
[2018-05-15 06:43] LABS: Basophils # (Auto) 0 K/mcL (0.0-0.3); Basophils % (Auto) 0.1 % (0.0-2.0); Eosinophils # (Auto) 0 K/mcL (0.0-0.7); Eosinophils % (Auto) 0 % (0.0-7.0); Granulocytes % (Auto) 87.2 % (38.0-78.0); Lymphocytes # (Auto) 1.8 K/mcL (1.5-4.8); Lymphocytes % (Auto) 7.5 % (15.5-49.0); Mean Cell Volume 93.3 fL (80.0-100.0); Mean Corpuscular HGB Conc 32.8 g/dL (31.0-36.0); Mean Corpuscular Hemoglobin 30.6 pg (26.0-34.0); Monocytes # (Auto) 1.3 K/mcL (0.1-0.9); Monocytes % (Auto) 5.2 % (1.0-12.0); Platelet Count 543 K/mcL (140-440); RBC 3.16 M/mcL (4.00-5.20); Red Cell Distribution Width 13.7 % (11.5-14.5)
[2018-05-15 06:58] LABS: ALT/SGPT 12 U/l (0-40); Albumin 2.4 gm/dL (3.2-5.2); Albumin/Globulin Ratio 0.5 (1.0-2.3); Alkaline Phosphatase 67 U/L (39-117); Bilirubin,Direct < 0.2 mg/dL (0.0-0.3); Blood Urea Nitrogen 12 mg/dl (8-23); Gamma Glutamyl Transpeptidase 36 U/L (5-36); Uric Acid 4.7 mg/dL (2.5-8.0)
[2018-05-15 07:08] LABS: Procalcitonin 1.54 ng/mL (<0.10)
[2018-05-15 07:13] LABS: Complement C3 133.5 mg/dl (90-180)
[2018-05-15] MEDS: CIPROFLOXACIN 400 MG/200 ML BAG IV SCH (09:13)
[2018-05-15] MEDS: ERTAPENEM 1 GM in 0.9 % SODIUM CHLORIDE 50 ML IV SCH (09:13)
[2018-05-15] MEDS: DOCUSATE SODIUM 100 MG CAPSULE PO SCH ×2 (09:14→20:42)
[2018-05-15] MEDS: DOXYCYCLINE HYCLATE 100 MG TABLET.ORL PO SCH (09:14)
[2018-05-15] MEDS: HEPARIN 5,000 UNIT/ML VIAL SQ SCH ×2 (09:14→20:43)
[2018-05-15] MEDS: OXANDROLONE 2.5 MG TABLET PO SCH ×2 (09:15→20:40)
[2018-05-15] MEDS: MULTIVIT,THER IRON,CA,FA & MIN 1 TABLET PO SCH (09:15)
[2018-05-15] MEDS: FUROSEMIDE 40 MG TABLET PO SCH (09:15)
[2018-05-15] MEDS: oxyCODONE HCL 5 MG TABLET PO PRN ×2 (09:41→20:40)
--- NOTE | 2018-05-15 09:49 | Cat Scan Report ---
CLINICAL INFORMATION: Elevated white blood cell count. Evaluate source of fever. History of melanoma and non-Hodgkin's lymphoma COMPARISON: Chest CT 09/30/2015 and chest/abdomen CT 06/12/2011. TECHNIQUE: Enteric and IV contrast were withheld. 0.625 mm helical slices were obtained from the lung apices through the subtrochanteric regions of the femurs. Following reconstruction, 2.5 mm sagittal, coronal and axial reformatted images were processed and reviewed at multiple windows and levels. 7 mm MIP reconstructions were obtained through the lungs to optimize nodule detection.The exam was performed using radiation dose optimization techniques including, but not limited to, automated exposure control, adjustment of the mA and/or kV according to patient size and use of iterative reconstruction technique. FINDINGS: Mediastinal windows show mild cardiomegaly with moderate calcific plaque in the proximal coronary arteries and small amounts of calcification in both the mitral and aortic valves, as previously seen. The noncontrasted thoracic aorta and pulmonary arteries are normal in contour and caliber. Moderately enlarged mediastinal and perihilar lymph nodes have decreased from the most recent CT over two years prior - 09/30/2015. The largest, conglomerate of adenopathy, in the lower paraesophageal region as decreased from 4.6 centimeters on previous study to 3.5 cm on today's exam. In addition, lymph nodes in both axillary regions, have decreased and are normal size. No new regions of adenopathy appreciated. Moderate bilateral pleural effusions are present. The left effusion has resulted in complete compressive atelectasis of the superior, medial and posterior basilar segments of the left lower lobe. The right effusion results in only subsegmental atelectasis in the posterior right lower lobe. A 6 mm nodule in the posterior segment right upper lobe (image 41) and a 4 mm nodule in the lateral basilar segment of the right lower lobe (image 63) are both new. Images through the abdomen show the noncontrasted liver, both kidneys, adrenal glands, spleen, pancreas and aorta are normal in size, configuration and attenuation without focal lesion. There are 5-6 large, predominantly cholesterol, stones in the gallbladder which range up to 2.7 cm Vas-Cath previously seen. Gallbladder wall remains normal - no evidence of cholecystitis. Intrahepatic and common bile ducts are normal: CBD is 5 mm. Retroperitoneal adenopathy has decreased considerably since the comparison CT over two years prior. There are mildly enlarged lymph nodes in the periaortic and pericaval region, however. No abnormally enlarged lymph nodes seen in the mesentery. 3-4 mildly enlarged lymph nodes in the right common/external iliac region and 4-5 lymph nodes in each inguinal region appreciated. Inguinal lymph nodes range up to 2.5 cm. The stomach, small and large bowel are normal. Images through the pelvis show moderate distention of urinary bladder. Anteflexed uterus is normal postmenopausal size. There is no free air or free fluid Bone windows show bilateral hip prostheses which are anatomically aligned without loosening or infection. Moderate degenerative change in the lumbar spine which is stable. No osteolytic or blastic lesions seen throughout the chest, abdomen or pelvis. IMPRESSION: 1. No evidence of infection throughout the chest, abdomen or pelvis. 2. Mild adenopathy in the mediastinal, hilar or axillary regions of the chest, the abdominal retroperitoneal region and the iliac/inguinal region of the pelvis. The size and number of lymph nodes have regressed considerably since the comparison CT 2.5 years ago. Given the adenopathy involution, these likely represent fibrotic remnants following successful treatment rather than recurrent active lymphoma. If there is, however, clinical suspicion for recurrent NHL, consider directed ultrasound exam of both groins and axillary regions to determine the presence of any pathologic infiltrated lymph nodes which may be amenable to repeat percutaneous biopsy. CT / PET should also be considered, if recurrent lymphoma is suspected 3. Moderate bilateral pleural effusions. On the left, it results in complete compressive atelectasis of the medial, posterior and lateral basilar segments of the left lower lobe. On the right, there is only subsegmental compressive atelectasis of the posterior lower lobe 4. Cholelithiasis. Gallbladder and bile ducts are otherwise normal Interpreted and Authenticated by: Dago Chavez 05/15/18
--- NOTE | 2018-05-15 09:59 | Nephrology Consult Note ---
History of Present Illness - Reason for Consult Patient information: Note initiated : 05/15/18 at 9:57 am Patient: Lynette Salamanca 82 y/o F admitted on 05/04/18 for fever, nausea. Consult date: 05/15/18 acute renal failure Requesting physician: Sofía Jerry - Chief Complaint Left leg cellulitis - History of Present Illness Lynette Salamanca is an 82-year-old female with lymphoma, melanoma left eye s/ p enucleation and chronic kidney disease stage 3 based on eGFR just below 60, presented to ED for new onset fever, nausea, vomiting, left lower extremity pain and swelling. Her initial temperature was 103.1. Hospital course was significant for persistent leukocytosis with bandemia, ESR >120 despite broad spectrum antibiotic treatment for 2 weeks. Serum creatinine started to rise in the past 2 days. Review of Systems Constitutional: fatigue, weakness Nose, mouth and throat: no nasal congestion, no sore throat Cardiovascular: no chest pain, no palpatations Respiratory: no dyspnea, no wheezing Gastrointestinal: no abdominal pain, no nausea Genitourinary: no dysuria, no hematuria Musculoskeletal: no back pain, no joint swelling Integumentary: erythema, lesions Neurological: no confusion, no focal weakness Psychiatric: no anxiety, no panic attacks Endocrine: no cold intolerance, no heat intolerance Hematologic/Lymphatic: no easy bleeding, no easy bruising Allergic/Immunologic: no tongue swelling, no uticaria Past History Past medical history: Lymphoma Melanoma left eye s/p enucleation Past family history: No history of kidney disease Past social history: She lives independently and multiple family members live close by. She was a prior smoker, but no history of alcoholism or substance abuse. Medications and Allergies Home Medications Medication Instructions Recorded Confirmed Type No Known Home Meds 09/30/15 05/03/18 History Allergies Allergy/AdvReac Type Severity Reaction Status Date / Time No Known Drug Allergies Allergy Verified 05/03/18 20:25 Exam - Vital Signs Vital signs: Temp Pulse Resp BP Pulse Ox 97.0 F 73 18 122/60 97 05/15/18 06:39 05/15/18 06:39 05/15/18 06:39 05/15/18 06:39 05/15/18 06:39 - General Appearance General appearance: chronically ill, frail EENT: mucous membranes moist Neck: supple Respiratory: clear Cardiology: no edema Gastrointestinal: no tenderness Integumentary: erythema Neurologic: no focal deficit, alert and oriented x3 Musculoskeletal: no deformities Psychiatric: mood/affect appropriate, cooperative Results - Lab Results 05/15/18 05:03 05/15/18 05:03 Most recent lab results Calcium 8.3 mg/dl (8.6-10.4) L 05/15/18 05:03 Phosphorus 4.2 mg/dL (2.7-4.5) 05/15/18 05:03 Magnesium 2.0 mg/dL (1.6-2.5) 05/15/18 05:03 Assessment and Plan (1) Acute on chronic renal failure Acute kidney injury on chronic kidney disease stage 3 associated with IV contrast administration with CT on 05/05/18 and 05/09/18 and possible acute toxic nephropathy due to antibiotics. There is no recent history of NSAID use. Intravascular volume depletion, acute glomerulonephritis or acute interstitial nephritis unlikely per work up. Work up: Urinalysis on 05/03/18: Yellow, Clear, pH 6.0, SG 1.019, protein 30, occult blood negative, leukocyte esterase negative, urine WBC 2. Urinalysis on 05/05/18: Yellow, Clear, pH 6.0, SG 1.012, protein negative, occult blood 0.2, leukocyte esterase negative, urine WBC 1. CT Abdomen and Pelvis without contrast on 05/15/18: Report pending. Progress: Urine output: 350+ ml reported in the past 24 hours. Serum creatinine increased from 1.0 to 1.4 (05/13-05/14) and 1.4 to 1.6 (-05/15). Plan: No acute hemodialysis need. Avoid NSAIDs, nephrotoxic medications and IV contrast. Monitor BMP and urine output. Status: Acute Priority: High Qualifiers: Acute renal failure type: unspecified Chronic kidney disease stage: stage 3 (moderate) Qualified Code(s): N17.9 - Acute kidney failure, unspecified; N18.3 - Chronic kidney disease, stage 3 (moderate)
[2018-05-15] MEDS ORDERED: VANCOMYCIN PER PHARMACY IV SCH (10:40)
--- NOTE | 2018-05-15 10:45 | General Surgery Progress Note ---
Subjective Patient reports: other (EXCEPT for left leg pain , discomfort and inability to bear weight and walk, she does NOT have any other subjective constitutional or systemic complaints. ) Narrative: Note initiated : 05/15/18 at 10:34 am Service Date, if different from initiated Date: [] Patient: Lynette Salamanca 82 y/o F admitted on 05/04/18 for fever, nausea. Chief Complaint: [] Objective Temp Pulse Resp BP Pulse Ox 97.0 F 73 18 122/60 97 05/15/18 06:39 05/15/18 06:39 05/15/18 06:39 05/15/18 06:39 05/15/18 06:39 T max around 100 F. T now 97 F. NO tachycardia NO tachypnea NO SOB, NO GI or symptoms. Eats well, DENIES constipation or dysuria, NO bleeding. Focused Local Examination: LEFT leg resolving inflammatory changes skin and sub cutaneous adipose envelope. DRY crusting around posterior dependent skin at site of blisters. NO CREPITATION and NO PURULENCE. Calf tenderness in improving. Explained and demonstrated to patient about ROM exercises LEFT foot, leg, hip WITH extremity elevated and flat . To COORDINATE these with slow and deep breathing. Repeat 4 to 5 times a day. Local wound care to continue. Antibiotic management per Hospitalist. CONSIDER holding off ALL antibiotics for 48 to 72 hours to monitor trend. Repeat culture if there is spike in temperature. Encourage PO fluids. AVOID nephrotoxic medications. - Additional Data Intake & Output - Last 24 hours: Intake & Output 05/13/18 05/14/18 05/15/18 05/16/18 05:59 05:59 05:59 05:59 Intake Total 2140 / 2140 2550 / 2550 2878 / 2878 200 / 200 Output Total 1400 / 1400 415 / 415 350 / 350 Balance 740 / 740 2135 / 2135 2528 / 2528 200 / 200 Weight 151 lb 153 lb 165 lb - Labs 05/15/18 05:03 05/15/18 05:03 Diabetes panel 05/15/18 Range/Units 05:03 Sodium 134 (133-145) mmol/L Potassium 4.0 (3.3-5.1) mmol/L Chloride 98 (96-108) mmol/L Carbon Dioxide 25 (22-30) mmol/L BUN 12 (8-23) mg/dl Creatinine 1.6 H (0.6-1.1) mg/dl Glucose 111 H (70-105) mg/dL Calcium 8.3 L (8.6-10.4) mg/dl AST 20 (0-37) U/l ALT 12 (0-40) U/l Alkaline Phosphatase 67 (39-117) U/L Total Protein 6.8 (5.9-8.4) gm/dL Albumin 2.4 L (3.2-5.2) gm/dL Triglycerides 187 H (<150) mg/dl Calcium panel 05/15/18 Range/Units 05:03 Calcium 8.3 L (8.6-10.4) mg/dl Phosphorus 4.2 (2.7-4.5) mg/dL Albumin 2.4 L (3.2-5.2) gm/dL Pituitary panel 05/15/18 Range/Units 05:03 Sodium 134 (133-145) mmol/L Potassium 4.0 (3.3-5.1) mmol/L Chloride 98 (96-108) mmol/L Carbon Dioxide 25 (22-30) mmol/L BUN 12 (8-23) mg/dl Creatinine 1.6 H (0.6-1.1) mg/dl Glucose 111 H (70-105) mg/dL Calcium 8.3 L (8.6-10.4) mg/dl Adrenal panel 05/15/18 Range/Units 05:03 Sodium 134 (133-145) mmol/L Potassium 4.0 (3.3-5.1) mmol/L Chloride 98 (96-108) mmol/L Carbon Dioxide 25 (22-30) mmol/L BUN 12 (8-23) mg/dl Creatinine 1.6 H (0.6-1.1) mg/dl Glucose 111 H (70-105) mg/dL Calcium 8.3 L (8.6-10.4) mg/dl Total Bilirubin 0.3 (0.0-1.0) mg/dL AST 20 (0-37) U/l ALT 12 (0-40) U/l Alkaline Phosphatase 67 (39-117) U/L Total Protein 6.8 (5.9-8.4) gm/dL Albumin 2.4 L (3.2-5.2) gm/dL Assessment and Plan (1) Myositis of left lower leg Problem details: NO EVIDENCE OF SKIN BREAKDOWN / OR DISCRETE SKIN AND SUB CUTNEOUS LESION Status: Acute Current Visit: Yes - Narrative A/P Narrative: Assessment: SLOW resolution of inflammatory changes skin, sub q and calf musculature. Decreased ROM due to inflammatory processes. ANTICIPATE slow functional recovery over a period of time. Clinical malnutrition with hypoproteinemia. Prealbumin around 6. On OXANDRIN. She lives alone. NEEDS Rehab and supportive care. Needs reassurance and counseling. Spoke at length with nurse and patient's daughter. Plan: See detailed notes above. FOLLOWING patient . - Time Spent With Patient Total time spent is greater than 50% in coordination of care (as documented) at patient's floor/unit and/or counseling patient: 25 - 35 minutes
[2018-05-15] MEDS ORDERED: MEROPENEM 0.5 GM VIAL IV SCH (11:15)
[2018-05-15] MEDS: VANCOMYCIN 1,500 MG in 0.9 % SODIUM CHLORIDE 500 ML IV SCH (11:27)
--- NOTE | 2018-05-15 11:41 | Internal Med Progress Note ---
Medical - PN: Subj Patient information: Note initiated : 05/15/18 at 11:32 am Service Date, if different from initiated Date: [] Patient: Lynette Salamanca 82 y/o F admitted on 05/04/18 for fever, nausea. Chief Complaint: [] Interval history: 05/04-patient admitted with left lower extremity lymphangitis/cellulitis likely group B streptococcus. Rapidly progressing and hence started on clindamycin/ Rocephin. Await blood cultures. Continue close monitoring, lactic acid trending. Current lactic acid 2.6. On crystalloids. 05/05-wound care consulted. White count at 15.5. 47% bands. Worsening lower extremity redness. Wound care recommends CT scan to rule out osteomyelitis. Blood cultures negative so far. Antibiotic spectrum extended with clindamycin along with Rocephin. Patient however feeling better than previous day and able to bear weight and ambulate. Start aggressive diuresis in light of significant lymphedema. 05/06-patient doing a lot better. Improve lymphedema/redness and pain. CT scan lower extremity shows significant cellulitis/myositis. White count downtrending to 13.1 with downtrending bandemia from afebrile. Blood cultures negative so far. Able to bear weight and ongoing physical therapy. Wound care ongoing. Antibiotics escalated to Zosyn/vancomycin. Possible discharge in 48 hours if continues to improve clinically. Will need outpatient IV antibiotics. No family at bedside. Diuresing well 05/07-patient clinically improving. Improved lower extremity redness pain. Improved leukocytosis down to 9.9 with resolving bandemia. Fever 100.3 this morning. Potassium down to 2.9 on aggressive potassium replacement 120 mg. Continue diuresis. Possible discharge in 24-48 hours with outpatient antibiotics. Blood cultures positive for gram-positive bacilli. Will target antibiotics through May 15. 05/08 Pt seen examined, still has pain in the leg, and erythema, pt reports improvement from admission, but the pic since admission show much less erythema. BC is GPC one bottle, pt wbc count is up today, but is afebrile. CT was neg for abscess n admission. will continue with IV vanco and zosyn for now, monitor for response. 05/09 Patient seen examined no acute overnight issues, feels pain is worse, her lower extermity is more tender and there is some sloughing of the skin, X ray neg for air, USG done neg for abscess, but clinically pt pain is worse, I am not sure how much area was covered by USG looking at the image, I doubt if the entire involved region was covered. Will repeat CT lower extremity with contrast to see if any significant change is present. 05/10 Patient seen and examined lying in bed comfortable. Overnight events noted. She was febrile with a temperature of 101. Repeat blood cultures sent. Labs today show worsening WBC count. Clinically however patient is much better, CT scan done yesterday shows improved cellulitis compared to yesterday. Chest x -ray is negative. The patient's leg also appears to be better. I have increased the dose of Zosyn from 2.25 every 6 to 3.375 every 6, pt to continue on vanco appreciate wound care help. 05/11 Pt seen examined still has erythema and pain, wbc trending up, low grade fever prese given some repsonse to IV abx, but not much, will see if she needs surgical debridement to help with the wound. consult Dr Miles 05/12 Pt seen examined, no acute complaints, still has low grade temperature procalcitonin to be checked, WBC is trending up started on ciprofloxacin yesterday Pt notes that there may have been some rat dropping in the hotel in [facility] where she was , her friend also developed cellulitis? She is not admitted though Appreciated Dr Miles input, cultures sent will see what organisism grow. 05/13 Patient seen examined, no acute overnight issues, afebrile, wbc down to 19K pt leg is not much better, slightly worse today than yesterday, increased sloughing and discharge, pt leg is still warm and tender to touch Plan for skin biopsy today talked with the lab regarding fungal cultures/ sporothrix? h/o patient working in garden with just slippers also given travel to [facility], will send for AFB and mycobacteria cultures. After biopsy consider starting on itraconazole and doxycycline. GET PICC Line today 05/14 Patient seen examined, no acute overnight issues patient pain continues to be high, had biopsy and mulitiple cultures sent yesterday hold off on itraconazole till fungal culture are back, or atleast some indication of sporothrix d/c vanco and zosy on cipro, doxy, started on ertapenum today. 12/16 pt seen examined, fever 101.5 yesterday wbc 24 K, path neg for any abnormal cells CT abdomen and pelvis/chest without contrast shows some pleural effusion, lymphadenopathy, but improving abdominal lymphadenopathy Plan was reviewed with Dr Young who thought possibly of lymphoma is there, consider steroids, will await biopsy results which should be in tomorrow, and t hen talk with him and consider steroids. patient unfortunately has worsening ESR, as well as worsening procalcitonin, with elevated WBC, I appreciate input from Wound care to hold abx, but with worsening procalcitonin, I would rather have her on antibiotics than not. I have stopped doxy and resumed vancomycin She will be swtiched from ertapenum to meropenum continue ciprofloxacin Pateints renal function continues to decline, nephrology consulted, ua, urine prot, lytes and esosinphils, prot creat ratio ordered AT this time I do not have a clear etiology for patient necrotizing cellulitis, just adipose inflammation? malignancy, or fungal or mycobacterial infection. Patient is on broad spectrum coverage so far, and AFB, Fungal cultures are pending, i am also waiting on skin biopsy which will give a report hopefully on Wednesday. Family wishes transfer to higher center if we do not have a clear answer by Wednesday. Pertinent ROS: Denies headache, dizziness Denies chest pain, palpitations Denies cough or shortness of breath Denies abdominal pain, Nurse later reported nausea and vomiting today after rounds. - Constitutional Vitals: Vital Signs Temp Pulse Resp BP Pulse Ox 97.2 F 65 16 131/65 95 05/15/18 11:31 05/15/18 11:31 05/15/18 11:31 05/15/18 11:31 05/15/18 11:31 Period Temp Pulse Resp BP Sys/Tobar Pulse Ox Last 24 Hr 97.0 F-101.5 F 65-77 16-20 112-132/51-75 90-97 Intake and Output 05/14/18 05/15/18 05/15/18 21:59 05:59 13:59 Intake Total 1700 / 1700 750 / 750 200 / 200 Output Total 350 / 350 Balance 1700 / 1700 400 / 400 200 / 200 Weight 165 lb Intake & Output: Intake & Output 05/14/18 05/15/18 05/15/18 21:59 05:59 13:59 Intake Total 1700 / 1700 750 / 750 200 / 200 Output Total 350 / 350 Balance 1700 / 1700 400 / 400 200 / 200 Weight 165 lb Intake: IV 1100 / 1100 200 / 200 200 / 200 Sodium Chloride 0.9% 1,000 ml @ 1000 / 1000 150 mls/hr IV .[id number] [facility] [place] Rx#: [id number] Oral 600 / 600 550 / 550 Output: Void Amount 350 / 350 Other: Meal Dinner Percent of Meal Consumed 50% Urine Color Bright Yellow Stool Size Smear Stool Color Brown Green Stool Consistency Loose # Voids 1 1 # Bowel Movements 1 Exam: Constitutional; Afebrile, cooperative, alert, not in distress. Respiratory system: Air Entry equal on both sides, No crackles or wheezing, no rhonchi. CVS- Rate rhythm regular, S1,S2 heard, no gallop, no rub. Abdomen- Soft nontender abdomen, no organomegaly, no tenderness, no guarding or rigidity, [employer]- AOOx3, moving all extremities, no gross focal deficit noted. Right lower extremity- since yesterday the leg has more soughing and more blisters, Stil lis warm to touch and is exquisitely tender. Medical - PN: Obj Da - Labs CBC & Chem 7: 05/15/18 05:03 05/15/18 05:03 Labs: Abnormal Lab Results 05/15/18 05/15/18 05/14/18 05:03 05:03 20:55 WBC 24.1 H RBC 3.16 L Hgb 9.6 L Hct 29.4 L Plt Count 543 H MPV 7.3 L Gran % 87.2 H Lymph % (Auto) 7.5 L Gran # 21.0 H [place] # (Auto) 1.3 H Seg Neutrophils % Lymphocytes % ESR BUN Creatinine 1.6 H Glucose 111 H Calcium 8.3 L Lactate Dehydrogenase C-Reactive Protein Albumin 2.4 L Globulin 4.4 H Albumin/Globulin Ratio 0.5 L Triglycerides 187 H IgM 424.8 H 05/14/18 05/14/18 05/14/18 20:55 20:55 04:08 WBC RBC Hgb Hct Plt Count MPV Gran % Lymph % (Auto) Gran # [place] # (Auto) Seg Neutrophils % Lymphocytes % ESR > 120 H BUN Creatinine 1.4 H Glucose 117 H Calcium 8.5 L Lactate Dehydrogenase C-Reactive Protein 34.1 H Albumin 2.2 L Globulin 4.7 H Albumin/Globulin Ratio 0.5 L Triglycerides 191 H IgM 05/14/18 05/13/18 05/13/18 04:08 07:50 04:10 WBC 24.1 H 19.1 H RBC 3.31 L 3.39 L Hgb 10.2 L 10.4 L Hct 30.9 L 31.1 L Plt Count 514 H 486 H MPV 7.3 L 7.3 L Gran % Lymph % (Auto) Gran # [place] # (Auto) Seg Neutrophils % 83 H Lymphocytes % 8 L 9 L ESR BUN 7 L Creatinine Glucose Calcium 8.3 L Lactate Dehydrogenase 313 H C-Reactive Protein Albumin 2.2 L Globulin 4.8 H Albumin/Globulin Ratio 0.5 L Triglycerides 211 H IgM Meds: Medications Acetaminophen (Tylenol) 650 mg PO Q4-6HP PRN PRN Reason: PAIN/FEVER > 101 Last Admin: 05/15/18 08:48 Dose: 650 mg Albuterol/Ipratropium (Duoneb) 3 ml NEB Q4HP PRN PRN Reason: Shortness Of Breath Or Wheezing Docusate Sodium (Colace) 100 mg PO BID [facility] Last Admin: 05/15/18 09:14 Dose: Not Given Furosemide (Lasix) 40 mg PO DAILY [facility] Last Admin: 05/15/18 09:15 Dose: 40 mg Heparin Sodium (Porcine) (Heparin) 5,000 unit SQ Q12 [facility] Last Admin: 05/15/18 09:14 Dose: 5,000 unit Heparin Sodium (Porcine) (Heparin Flush) 2 ml IV Q12 [facility] Last Admin: 05/15/18 09:13 Dose: 2 ml Hydromorphone HCl (Dilaudid) 0.5 mg IV Q2HP PRN PRN Reason: PAIN LEVEL > 6 Last Admin: 05/14/18 14:02 Dose: 0.5 mg Magnesium Sulfate (Magnesium Sulfate) 2 gm in 50 mls @ 50 mls/hr IV UD PRN PRN Reason: MG = or < 1.7 Acetaminophen (Ofirmev) 1,000 mg in 100 mls @ 200 mls/hr IV Q6HP PRN PRN Reason: PAIN/FEVER > 101 Last Infusion: 05/14/18 20:35 Dose: Infused Vancomycin HCl 1,500 mg/ (Sodium Chloride) 500 mls @ 333.3 mls/hr IV Q24H [facility] [place] Last Admin: 05/15/18 11:27 Dose: 333.3 mls/hr Meropenem 1 gm/ Sodium (Chloride) 100 mls @ 100 mls/hr IV Q12H [facility] Ciprofloxacin (Cipro) 400 mg in 200 mls @ 200 mls/hr IV Q24H [facility] Iron Carb/Multivit/Gi Tech/Folic Acid (Multivitamin W/Minerals) 1 tab PO DAILY [facility] [place] Last Admin: 05/15/18 09:15 Dose: 1 tab Ondansetron HCl (Zofran) 4 mg IV Q4-6HP PRN PRN Reason: Nausea And Vomiting Last Admin: 05/15/18 10:34 Dose: 4 mg Oxandrolone (Oxandrin) 5 mg PO BID [facility] Last Admin: 05/15/18 09:15 Dose: 5 mg Oxycodone HCl (Roxicodone) 5 - 10 mg PO Q4HP PRN PRN Reason: pain not responding to tylenol Last Admin: 05/15/18 09:41 Dose: 5 mg Potassium Chloride (Klor-Con) 40 meq PO DAILYP PRN PRN Reason: K+ < 3.5 Senna/Docusate Sodium (Senna Plus Tablet) 1 tab PO HS [facility] Last Admin: 05/14/18 21:43 Dose: Not Given Sodium Chloride (Saline Flush) 10 ml IV UD PRN PRN Reason: FLUSH Sodium Chloride (Saline Flush) 10 ml IV Q8 [facility] Last Admin: 05/15/18 05:26 Dose: Not Given Sodium Chloride (Saline Flush) 10 ml IV Q12 [facility] Last Admin: 05/15/18 09:15 Dose: 10 ml Vancomycin HCl (Vancomycin Per Pharmacy) 1 order IV UD [facility] Medical - PN: A/P - Time Spent With Patient Total time spent is greater than 50% in coordination of care (as documented) at patient's floor/unit and/or counseling patient: - Narrative A/P Narrative: A/P Severe sepsis with GPC bacteremia, - hemodynamically stable, had low grade temp overnight, wBC 24K, procalcitonin 1.5, trending up, ESR > 120, was 40 on admission. The GPC islolated on blood culture 05/03- has not been speciated yet, has been sent to the reference laboratory. Severe cellulitis- Necrotizing infection Etiology? Not responding to broad spectrum ABX Has been on Clindamycin and rocephin x 2 days, which was then switched to IV vancomycin and Zosyn, AFter clinical worsening, the pt was added no ciprofloxacin 05/13 vanco and zosyn were held and doxy added to see if any improvement, 05/14 ertapenum started, 05/15 Vanco resumed , with IV meropenum and ciprofloxacin. ertapenum held. await pathology report, fugal, cultures and afb stain and cultures malignancy? consider steroids (recommended by Dr Young/ oncologist) give h/o lymphoma. I am waiting on tissue sample before starting steroids. Leucocytsis- path smear shows leucocytosis, no abnormal cells. Pain Control. -on oxycodone , tylenol d/c celebrex given worsening renal function, d/c gabapentin as it caused confusion Hypokalemia- K stable, replace contraction alkalosis- Bicarb stable, monitor for now, no need for diamox at present. h/o lung mass/ followed by oncology dr young, repeat x ray is clear, Pt has lymphoplasmacytic lymphoma, to cause present situation, [place] macroglobulinemia ? will send IgM levels, serum viscosity. Reviewed the case with Dr Young, advised to get CT Abdomen and pelvis and consider a course of steroids. Chest CT Abdomen and pelvis shows some pleural effusion (pts lymphoma was diagnosed as pleural effusion) improving lymphadenopathy. DVT hep sq Full code * Medical - PN: Qual - VTE Deep Vein Thrombosis/Pulmonary Embolism Present on Admission: No
[2018-05-15] MEDS: MEROPENEM 1 GM in 0.9 % SODIUM CHLORIDE 100 ML IV SCH ×2 (13:08→20:42)
[2018-05-15 14:25] LABS: Appearance,Urine HAZY; Bacteria,Urine 0 /hpf (0); Bilirubin,Urine NEG (NEG); Color,Urine YELLOW; Glucose,Urine (UA) NEGATIVE (NEG); Leukocyte Esterase,Urine NEG /uL (NEG); Mucus,Urine FEW /hpf (0); Protein,Urine NEG (NEG); Specific Gravity,Urine 1.008 (1.000-1.035); Urine Amorphous Crystals FEW /hpf (0); Urine Blood 0.03 mg/dL (<0.03); Urine Hyaline Cast 3 /lpf (0-2); Urine RBC < 1 /hpf (0-1); Urine Squamous Epithelial Cell < 1 /hpf (0-4); Urine Transitional Epi Cells < 1 /hpf (0-2); Urine WBC 1 /hpf (0-4); Urobilinogen,Urine NEG (NEG)
--- NOTE | 2018-05-15 14:38 | Internal Med Progress Note ---
Medical - PN: Subj Patient information: Note initiated : 05/15/18 at 2:36 pm Service Date, if different from initiated Date: [] Patient: Lynette Salamanca 82 y/o F admitted on 05/04/18 for fever, nausea. Chief Complaint: [] Interval history: 05/04-patient admitted with left lower extremity lymphangitis/cellulitis likely group B streptococcus. Rapidly progressing and hence started on clindamycin/ Rocephin. Await blood cultures. Continue close monitoring, lactic acid trending. Current lactic acid 2.6. On crystalloids. 05/05-wound care consulted. White count at 15.5. 47% bands. Worsening lower extremity redness. Wound care recommends CT scan to rule out osteomyelitis. Blood cultures negative so far. Antibiotic spectrum extended with clindamycin along with Rocephin. Patient however feeling better than previous day and able to bear weight and ambulate. Start aggressive diuresis in light of significant lymphedema. 05/06-patient doing a lot better. Improve lymphedema/redness and pain. CT scan lower extremity shows significant cellulitis/myositis. White count downtrending to 13.1 with downtrending bandemia from afebrile. Blood cultures negative so far. Able to bear weight and ongoing physical therapy. Wound care ongoing. Antibiotics escalated to Zosyn/vancomycin. Possible discharge in 48 hours if continues to improve clinically. Will need outpatient IV antibiotics. No family at bedside. Diuresing well 05/07-patient clinically improving. Improved lower extremity redness pain. Improved leukocytosis down to 9.9 with resolving bandemia. Fever 100.3 this morning. Potassium down to 2.9 on aggressive potassium replacement 120 mg. Continue diuresis. Possible discharge in 24-48 hours with outpatient antibiotics. Blood cultures positive for gram-positive bacilli. Will target antibiotics through May 15. 05/08 Pt seen examined, still has pain in the leg, and erythema, pt reports improvement from admission, but the pic since admission show much less erythema. BC is GPC one bottle, pt wbc count is up today, but is afebrile. CT was neg for abscess n admission. will continue with IV vanco and zosyn for now, monitor for response. 05/09 Patient seen examined no acute overnight issues, feels pain is worse, her lower extermity is more tender and there is some sloughing of the skin, X ray neg for air, USG done neg for abscess, but clinically pt pain is worse, I am not sure how much area was covered by USG looking at the image, I doubt if the entire involved region was covered. Will repeat CT lower extremity with contrast to see if any significant change is present. 05/10 Patient seen and examined lying in bed comfortable. Overnight events noted. She was febrile with a temperature of 101. Repeat blood cultures sent. Labs today show worsening WBC count. Clinically however patient is much better, CT scan done yesterday shows improved cellulitis compared to yesterday. Chest x -ray is negative. The patient's leg also appears to be better. I have increased the dose of Zosyn from 2.25 every 6 to 3.375 every 6, pt to continue on vanco appreciate wound care help. 05/11 Pt seen examined still has erythema and pain, wbc trending up, low grade fever prese given some repsonse to IV abx, but not much, will see if she needs surgical debridement to help with the wound. consult Dr Miles 05/12 Pt seen examined, no acute complaints, still has low grade temperature procalcitonin to be checked, WBC is trending up started on ciprofloxacin yesterday Pt notes that there may have been some rat dropping in the hotel in [facility] where she was , her friend also developed cellulitis? She is not admitted though Appreciated Dr Miles input, cultures sent will see what organisism grow. 05/13 Patient seen examined, no acute overnight issues, afebrile, wbc down to 19K pt leg is not much better, slightly worse today than yesterday, increased sloughing and discharge, pt leg is still warm and tender to touch Plan for skin biopsy today talked with the lab regarding fungal cultures/ sporothrix? h/o patient working in garden with just slippers also given travel to [facility], will send for AFB and mycobacteria cultures. After biopsy consider starting on itraconazole and doxycycline. GET PICC Line today 05/14 Patient seen examined, no acute overnight issues patient pain continues to be high, had biopsy and mulitiple cultures sent yesterday hold off on itraconazole till fungal culture are back, or atleast some indication of sporothrix d/c vanco and zosy on cipro, doxy, started on ertapenum today. 12/16 pt seen examined, fever 101.5 yesterday wbc 24 K, path neg for any abnormal cells CT abdomen and pelvis/chest without contrast shows some pleural effusion, lymphadenopathy, but improving abdominal lymphadenopathy Plan was reviewed with Dr Young who thought possibly of lymphoma is there, consider steroids, will await biopsy results which should be in tomorrow, and t hen talk with him and consider steroids. patient unfortunately has worsening ESR, as well as worsening procalcitonin, with elevated WBC, I appreciate input from Wound care to hold abx, but with worsening procalcitonin, I would rather have her on antibiotics than not. I have stopped doxy and resumed vancomycin She will be swtiched from ertapenum to meropenum continue ciprofloxacin Pateints renal function continues to decline, nephrology consulted, ua, urine prot, lytes and esosinphils, prot creat ratio ordered AT this time I do not have a clear etiology for patient necrotizing cellulitis, just adipose inflammation? malignancy, or fungal or mycobacterial infection. Patient is on broad spectrum coverage so far, and AFB, Fungal cultures are pending, i am also waiting on skin biopsy which will give a report hopefully on Wednesday. Family wishes transfer to higher center if we do not have a clear answer by Wednesday. - Constitutional Vitals: Vital Signs Temp Pulse Resp BP Pulse Ox 97.2 F 65 16 131/65 95 05/15/18 11:31 05/15/18 11:31 05/15/18 11:31 05/15/18 11:31 05/15/18 11:31 Period Temp Pulse Resp BP Sys/Tobar Pulse Ox Last 24 Hr 97.0 F-101.5 F 65-77 16-20 113-132/55-75 90-97 Intake and Output 05/15/18 05/15/18 05/15/18 05:59 13:59 21:59 Intake Total 750 / 750 800 / 800 Output Total 350 / 350 2300 / 2300 Balance 400 / 400 -1500 / -1500 Weight 74.843 kg Intake & Output: Intake & Output 05/15/18 05/15/18 05/15/18 05:59 13:59 21:59 Intake Total 750 / 750 800 / 800 Output Total 350 / 350 2300 / 2300 Balance 400 / 400 -1500 / -1500 Weight 74.843 kg Intake: IV 200 / 200 200 / 200 Oral 550 / 550 600 / 600 Output: Urine Catheter Amount 1200 / 1200 Void Amount 350 / 350 Urine/Stool Mix 800 / 800 Emesis 300 / 300 Other: Meal Dinner Percent of Meal Consumed 50% Urine Appearance Clear Urine Color Bright Yellow Pale Urine Odor Normal Stool Size Smear Stool Color Brown Brown Green Stool Consistency Loose Watery # Voids 1 1 # Bowel Movements 1 1 Exam: General: Alert, Awake, No acute Distress Eyes/N/T: EOMI Head/Neck: neck supple, CV: RRR, No murmurs, normal s1/s2 Pulm: Clear b/l, no wheezing/rhonchi/rales Abd: soft, nontender, +BS x4 Ext: LLE with warmth/erythema/blisters/tender Neuro: Alert, no focal deficits, moves all extremities, Skin: warm/dry Medical - PN: Obj Da - Labs CBC & Chem 7: 05/15/18 05:03 05/15/18 05:03 Labs: Abnormal Lab Results 05/15/18 05/15/18 05/15/18 12:55 12:55 05:03 WBC 24.1 H RBC 3.16 L Hgb 9.6 L Hct 29.4 L Plt Count 543 H MPV 7.3 L Gran % 87.2 H Lymph % (Auto) 7.5 L Gran # 21.0 H Karnes # (Auto) 1.3 H Seg Neutrophils % Lymphocytes % ESR BUN Creatinine Glucose Calcium Lactate Dehydrogenase C-Reactive Protein Albumin Globulin Albumin/Globulin Ratio Triglycerides Urine Occult Blood 0.03 A Amorphous Crystals Few A Hyaline Casts 3 H U Dickerson Prot/Creat Ratio 0.58 H IgM 05/15/18 05/14/18 05/14/18 05:03 20:55 20:55 WBC RBC Hgb Hct Plt Count MPV Gran % Lymph % (Auto) Gran # Karnes # (Auto) Seg Neutrophils % Lymphocytes % ESR BUN Creatinine 1.6 H Glucose 111 H Calcium 8.3 L Lactate Dehydrogenase C-Reactive Protein 34.1 H Albumin 2.4 L Globulin 4.4 H Albumin/Globulin Ratio 0.5 L Triglycerides 187 H Urine Occult Blood Amorphous Crystals Hyaline Casts U Dickerson Prot/Creat Ratio IgM 424.8 H 12/15/18 12/15/18 12/15/18 20:55 04:08 04:08 WBC 24.1 H RBC 3.31 L Hgb 10.2 L Hct 30.9 L Plt Count 514 H MPV 7.3 L Gran % Lymph % (Auto) Gran # Karnes # (Auto) Seg Neutrophils % Lymphocytes % 8 L ESR > 120 H BUN Creatinine 1.4 H Glucose 117 H Calcium 8.5 L Lactate Dehydrogenase C-Reactive Protein Albumin 2.2 L Globulin 4.7 H Albumin/Globulin Ratio 0.5 L Triglycerides 191 H Urine Occult Blood Amorphous Crystals Hyaline Casts U Dickerson Prot/Creat Ratio IgM 05/13/18 05/13/18 07:50 04:10 WBC 19.1 H RBC 3.39 L Hgb 10.4 L Hct 31.1 L Plt Count 486 H MPV 7.3 L Gran % Lymph % (Auto) Gran # Karnes # (Auto) Seg Neutrophils % 83 H Lymphocytes % 9 L ESR BUN 7 L Creatinine Glucose Calcium 8.3 L Lactate Dehydrogenase 313 H C-Reactive Protein Albumin 2.2 L Globulin 4.8 H Albumin/Globulin Ratio 0.5 L Triglycerides 211 H Urine Occult Blood Amorphous Crystals Hyaline Casts U Dickerson Prot/Creat Ratio IgM Meds: Medications Acetaminophen (Tylenol) 650 mg PO Q4-6HP PRN PRN Reason: PAIN/FEVER > 101 Last Admin: 05/15/18 08:48 Dose: 650 mg Albuterol/Ipratropium (Duoneb) 3 ml NEB Q4HP PRN PRN Reason: Shortness Of Breath Or Wheezing Docusate Sodium (Colace) 100 mg PO BID [facility] Last Admin: 05/15/18 09:14 Dose: Not Given Furosemide (Lasix) 40 mg PO DAILY [facility] Last Admin: 05/15/18 09:15 Dose: 40 mg Heparin Sodium (Porcine) (Heparin) 5,000 unit SQ Q12 [facility] Last Admin: 05/15/18 09:14 Dose: 5,000 unit Heparin Sodium (Porcine) (Heparin Flush) 2 ml IV Q12 [facility] Last Admin: 05/15/18 09:13 Dose: 2 ml Hydromorphone HCl (Dilaudid) 0.5 mg IV Q2HP PRN PRN Reason: PAIN LEVEL > 6 Last Admin: 05/14/18 14:02 Dose: 0.5 mg Magnesium Sulfate (Magnesium Sulfate) 2 gm in 50 mls @ 50 mls/hr IV UD PRN PRN Reason: MG = or < 1.7 Acetaminophen (Ofirmev) 1,000 mg in 100 mls @ 200 mls/hr IV Q6HP PRN PRN Reason: PAIN/FEVER > 101 Last Infusion: 05/14/18 20:35 Dose: Infused Vancomycin HCl 1,500 mg/ (Sodium Chloride) 500 mls @ 333.3 mls/hr IV Q24H [facility] Last Admin: 05/15/18 11:27 Dose: 333.3 mls/hr Meropenem 1 gm/ Sodium (Chloride) 100 mls @ 100 mls/hr IV Q12H [facility] Last Admin: 05/15/18 13:08 Dose: 100 mls/hr Ciprofloxacin (Cipro) 400 mg in 200 mls @ 200 mls/hr IV Q24H [facility] Iron Carb/Multivit/[place]/Folic Acid (Multivitamin W/Minerals) 1 tab PO DAILY [facility] Last Admin: 05/15/18 09:15 Dose: 1 tab Ondansetron HCl (Zofran) 4 mg IV Q4-6HP PRN PRN Reason: Nausea And Vomiting Last Admin: 05/15/18 10:34 Dose: 4 mg Oxandrolone (Oxandrin) 5 mg PO BID [facility] Last Admin: 05/15/18 09:15 Dose: 5 mg Oxycodone HCl (Roxicodone) 5 - 10 mg PO Q4HP PRN PRN Reason: pain not responding to tylenol Last Admin: 05/15/18 09:41 Dose: 5 mg Potassium Chloride (Klor-Con) 40 meq PO DAILYP PRN PRN Reason: K+ < 3.5 Senna/Docusate Sodium (Senna Plus Tablet) 1 tab PO HS [facility] Last Admin: 05/14/18 21:43 Dose: Not Given Sodium Chloride (Saline Flush) 10 ml IV UD PRN PRN Reason: FLUSH Sodium Chloride (Saline Flush) 10 ml IV Q8 [facility] Last Admin: 05/15/18 13:08 Dose: 10 ml Sodium Chloride (Saline Flush) 10 ml IV Q12 [facility] Last Admin: 05/15/18 09:15 Dose: 10 ml Vancomycin HCl (Vancomycin Per Pharmacy) 1 order IV [facility] [place] Medical - PN: A/P - Time Spent With Patient Total time spent is greater than 50% in coordination of care (as documented) at patient's floor/unit and/or counseling patient: - Narrative A/P Narrative: A: *Severe cellulitis, LLE -Etiology? Not responding to broad spectrum ABX -Has been on Clindamycin and rocephin x 2 days, which was then switched to IV vancomycin and Zosyn, -AFter clinical worsening, the pt was added no ciprofloxacin -05/13 vanco and zosyn were held and doxy added to see if any improvement, -05/14 ertapenum started, -05/15 Vanco resumed , with IV meropenum and ciprofloxacin. ertapenum held. -await pathology report, fugal, cultures and afb stain and cultures -malignancy? consider steroids (recommended by Dr Young/ oncologist) give h /o lymphoma. I am waiting on tissue sample before starting steroids. 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 *SHANE: 1.6<1.4<1.0 *Malnutrition: *Anemia: P: -cont current Abx -Surgery consulted, Pending surgical biopsies -pending AFB/fungal cultures -Neprho consulted -Dr. Cárdenas(wound surgeon) following -prn electrolyte replacement -Bicarb stable, monitor for now, no need for diamox at present. -dietary consult -ppx: heparin Medical - PN: Qual - VTE Deep Vein Thrombosis/Pulmonary Embolism Present on Admission: No
[2018-05-15] MEDS: ACETAMINOPHEN 1,000 MG/100 ML BOTTLE IV PRN ×2 (15:10→23:45)
[2018-05-15] MEDS: SENNOSIDES/DOCUSATE SODIUM 1 TAB TABLET PO SCH (20:43)
[2018-05-16] MEDS: 0.9 % SODIUM CHLORIDE 10 ML SYRINGE IV SCH ×5 (05:34→22:19)
[2018-05-16] MEDS: ACETAMINOPHEN 325 MG TABLET PO PRN ×4 (06:29→20:58)
[2018-05-16 06:30] LABS: Basophils # (Auto) 0 K/mcL (0.0-0.3); Basophils % (Auto) 0.2 % (0.0-2.0); Eosinophils # (Auto) 0 K/mcL (0.0-0.7); Eosinophils % (Auto) 0.1 % (0.0-7.0); Granulocytes % (Auto) 78.8 % (38.0-78.0); Lymphocytes # (Auto) 2.2 K/mcL (1.5-4.8); Lymphocytes % (Auto) 12.8 % (15.5-49.0); Mean Cell Volume 91.8 fL (80.0-100.0); Mean Corpuscular HGB Conc 33.9 g/dL (31.0-36.0); Mean Corpuscular Hemoglobin 31.1 pg (26.0-34.0); Monocytes # (Auto) 1.4 K/mcL (0.1-0.9); Monocytes % (Auto) 8.1 % (1.0-12.0); Platelet Count 560 K/mcL (140-440); RBC 2.92 M/mcL (4.00-5.20); Red Cell Distribution Width 13.8 % (11.5-14.5)
[2018-05-16 06:47] LABS: ALT/SGPT 13 U/l (0-40); Albumin 2.2 gm/dL (3.2-5.2); Albumin/Globulin Ratio 0.5 (1.0-2.3); Alkaline Phosphatase 59 U/L (39-117); Bilirubin,Direct < 0.2 mg/dL (0.0-0.3); Blood Urea Nitrogen 14 mg/dl (8-23); C-Reactive Protein 23.3 mg/dl (0.0-0.8); Gamma Glutamyl Transpeptidase 37 U/L (5-36)
--- NOTE | 2018-05-16 07:08 | Nephrology Progress Note ---
Subjective Patient information: Note initiated : 05/16/18 at 7:05 am Patient: Lynette Salamanca 82 y/o F admitted on 05/04/18 for fever, nausea. Chief Complaint: Fever Principal diagnosis: Left leg cellulitis Pertinent ROS: Left leg cellulitis Left leg pain Weakness No chest pain No shortness of breath No edema Objective - Vital Signs Vital signs: Vital Signs Temp Pulse Resp BP Pulse Ox 05/16/18 04:00 97.1 F 91 H 18 154/69 93 05/16/18 00:30 98.9 F 05/15/18 23:45 102.9 F H 77 20 139/57 91 05/15/18 19:16 99.4 F H 93 H 20 144/67 90 05/15/18 15:52 98.1 F 71 16 126/69 95 05/15/18 11:31 97.2 F 65 16 131/65 95 Intake and Output 05/15/18 05/16/18 05/16/18 21:59 05:59 13:59 Intake Total 440 / 440 350 / 350 Output Total 450 / 450 Balance 440 / 440 -100 / -100 Intake: IV 200 / 200 200 / 200 Merrem 1 gm In Sodium Chloride 100 / 100 100 / 100 0.9% 100 ml @ 100 mls/hr IV Q12H [facility] Rx#:[id number] Oral 240 / 240 150 / 150 Output: Void Amount 450 / 450 Other: Meal Dinner Percent of Meal Consumed 0% Feeding Ability Independent # Voids 1 Weight 165 lb 8 oz Intake & Output: Intake & Output 05/15/18 05/16/18 05/16/18 21:59 05:59 13:59 Intake Total 440 / 440 350 / 350 Output Total 450 / 450 Balance 440 / 440 -100 / -100 Weight 165 lb 8 oz Intake: IV 200 / 200 200 / 200 Merrem 1 gm In Sodium Chloride 100 / 100 100 / 100 0.9% 100 ml @ 100 mls/hr IV Q12H [facility] Rx#:[id number] Oral 240 / 240 150 / 150 Output: Void Amount 450 / 450 Other: Meal Dinner Percent of Meal Consumed 0% Feeding Ability Independent # Voids 1 - General Appearance General appearance: chronically ill, fatigue EENT: mucous membranes moist Neck: supple Respiratory: clear Cardiology: no edema Gastrointestinal: no tenderness Integumentary: erythema Neurologic: no focal deficit, alert and oriented x3 Musculoskeletal: no deformities Psychiatric: mood/affect appropriate, cooperative - Lab 05/16/18 05:00 05/16/18 04:00 Most recent lab results Calcium 8.5 mg/dl (8.6-10.4) L 05/16/18 04:00 Phosphorus 3.5 mg/dL (2.7-4.5) 05/16/18 04:00 Magnesium 2.1 mg/dL (1.6-2.5) 05/16/18 04:00 Assessment and Plan (1) Acute on chronic renal failure Lynette Salamanca is an 82-year-old female with lymphoma, melanoma left eye s/ p enucleation and chronic kidney disease stage 3 based on eGFR just below 60, presented to ED for new onset fever, nausea, vomiting, left lower extremity pain and swelling. Her initial temperature was 103.1. Hospital course was significant for persistent leukocytosis with bandemia, ESR >120 despite broad spectrum antibiotic treatment for 2 weeks. Acute kidney injury on chronic kidney disease stage 3 associated with IV contrast administration with CT on 05/05/18 and 05/09/18 and possible acute toxic nephropathy due to antibiotics. There is no recent history of NSAID use. Intravascular volume depletion, acute glomerulonephritis or acute interstitial nephritis unlikely per work up. Work up: Urinalysis on 05/03/18: Yellow, Clear, pH 6.0, SG 1.019, protein 30, occult blood negative, leukocyte esterase negative, urine WBC 2. Urinalysis on 05/05/18: Yellow, Clear, pH 6.0, SG 1.012, protein negative, occult blood 0.2, leukocyte esterase negative, urine WBC 1. CT Abdomen and Pelvis without contrast on 05/15/18: Report pending. Progress: Urine output: 1650 ml reported in the past 24 hours. Serum creatinine decreased from 1.6 to 1.5 in the past 24 hours. Plan: No acute hemodialysis need. Avoid NSAIDs, nephrotoxic medications and IV contrast. Monitor BMP and urine output. Status: Acute Priority: High Qualifiers: Qualified Code(s): N17.9 - Acute kidney failure, unspecified; N18.3 - Chronic kidney disease, stage 3 (moderate)
--- NOTE | 2018-05-16 07:09 | Internal Med Progress Note ---
Medical - PN: Subj Patient information: Note initiated : 05/16/18 at 6:52 am Service Date, if different from initiated Date: [] Patient: Lynette Salamanca 82 y/o F admitted on 05/04/18 for fever, nausea. Chief Complaint: [] Interval history: 05/04-patient admitted with left lower extremity lymphangitis/cellulitis likely group B streptococcus. Rapidly progressing and hence started on clindamycin/ Rocephin. Await blood cultures. Continue close monitoring, lactic acid trending. Current lactic acid 2.6. On crystalloids. 05/05-wound care consulted. White count at 15.5. 47% bands. Worsening lower extremity redness. Wound care recommends CT scan to rule out osteomyelitis. Blood cultures negative so far. Antibiotic spectrum extended with clindamycin along with Rocephin. Patient however feeling better than previous day and able to bear weight and ambulate. Start aggressive diuresis in light of significant lymphedema. 05/06-patient doing a lot better. Improve lymphedema/redness and pain. CT scan lower extremity shows significant cellulitis/myositis. White count downtrending to 13.1 with downtrending bandemia from afebrile. Blood cultures negative so far. Able to bear weight and ongoing physical therapy. Wound care ongoing. Antibiotics escalated to Zosyn/vancomycin. Possible discharge in 48 hours if continues to improve clinically. Will need outpatient IV antibiotics. No family at bedside. Diuresing well 05/07-patient clinically improving. Improved lower extremity redness pain. Improved leukocytosis down to 9.9 with resolving bandemia. Fever 100.3 this morning. Potassium down to 2.9 on aggressive potassium replacement 120 mg. Continue diuresis. Possible discharge in 24-48 hours with outpatient antibiotics. Blood cultures positive for gram-positive bacilli. Will target antibiotics through May 15. 05/08 Pt seen examined, still has pain in the leg, and erythema, pt reports improvement from admission, but the pic since admission show much less erythema. BC is GPC one bottle, pt wbc count is up today, but is afebrile. CT was neg for abscess n admission. will continue with IV vanco and zosyn for now, monitor for response. 05/09 Patient seen examined no acute overnight issues, feels pain is worse, her lower extermity is more tender and there is some sloughing of the skin, X ray neg for air, USG done neg for abscess, but clinically pt pain is worse, I am not sure how much area was covered by USG looking at the image, I doubt if the entire involved region was covered. Will repeat CT lower extremity with contrast to see if any significant change is present. 05/10 Patient seen and examined lying in bed comfortable. Overnight events noted. She was febrile with a temperature of 101. Repeat blood cultures sent. Labs today show worsening WBC count. Clinically however patient is much better, CT scan done yesterday shows improved cellulitis compared to yesterday. Chest x -ray is negative. The patient's leg also appears to be better. I have increased the dose of Zosyn from 2.25 every 6 to 3.375 every 6, pt to continue on vanco appreciate wound care help. 05/11 Pt seen examined still has erythema and pain, wbc trending up, low grade fever prese given some repsonse to IV abx, but not much, will see if she needs surgical debridement to help with the wound. consult Dr Miles 05/12 Pt seen examined, no acute complaints, still has low grade temperature procalcitonin to be checked, WBC is trending up started on ciprofloxacin yesterday Pt notes that there may have been some rat dropping in the hotel in [facility] where she was , her friend also developed cellulitis? She is not admitted though Appreciated Dr Miles input, cultures sent will see what organisism grow. 05/13 Patient seen examined, no acute overnight issues, afebrile, wbc down to 19K pt leg is not much better, slightly worse today than yesterday, increased sloughing and discharge, pt leg is still warm and tender to touch Plan for skin biopsy today talked with the lab regarding fungal cultures/ sporothrix? h/o patient working in garden with just slippers also given travel to [facility], will send for AFB and mycobacteria cultures. After biopsy consider starting on itraconazole and doxycycline. GET PICC Line today 05/14 Patient seen examined, no acute overnight issues patient pain continues to be high, had biopsy and mulitiple cultures sent yesterday hold off on itraconazole till fungal culture are back, or atleast some indication of sporothrix d/c vanco and zosy on cipro, doxy, started on ertapenum today. 12/16 pt seen examined, fever 101.5 yesterday wbc 24 K, path neg for any abnormal cells CT abdomen and pelvis/chest without contrast shows some pleural effusion, lymphadenopathy, but improving abdominal lymphadenopathy Plan was reviewed with Dr Young who thought possibly of lymphoma is there, consider steroids, will await biopsy results which should be in tomorrow, and t hen talk with him and consider steroids. patient unfortunately has worsening ESR, as well as worsening procalcitonin, with elevated WBC, I appreciate input from Wound care to hold abx, but with worsening procalcitonin, I would rather have her on antibiotics than not. I have stopped doxy and resumed vancomycin She will be swtiched from ertapenum to meropenum continue ciprofloxacin Pateints renal function continues to decline, nephrology consulted, ua, urine prot, lytes and esosinphils, prot creat ratio ordered AT this time I do not have a clear etiology for patient necrotizing cellulitis, just adipose inflammation? malignancy, or fungal or mycobacterial infection. Patient is on broad spectrum coverage so far, and AFB, Fungal cultures are pending, i am also waiting on skin biopsy which will give a report hopefully on Wednesday. Family wishes transfer to higher center if we do not have a clear answer by Wednesday. 05/16 Patient slept poorly last night has some hallucinations. And fever. This morning denies any fever chills. Feels a little better. Family bedside. Family want to send her to [facility]. Review of Systems: denies headache/fever/chills/nausea/vomiting/chest or abdominal pain/cough/ dyspnea/diarrhea. Otherwise see above. - Constitutional Vitals: Vital Signs Temp Pulse Resp BP Pulse Ox 97.1 F 91 H 18 154/69 93 05/16/18 04:00 05/16/18 04:00 05/16/18 04:00 05/16/18 04:00 05/16/18 04:00 Period Temp Pulse Resp BP Sys/Tobar Pulse Ox Last 24 Hr 97.1 F-103.0 F 65-93 16-20 126-154/57-69 90-95 Intake and Output 05/15/18 05/16/18 05/16/18 21:59 05:59 13:59 Intake Total 440 / 440 350 / 350 Output Total 450 / 450 Balance 440 / 440 -100 / -100 Weight 75.07 kg Intake & Output: Intake & Output 05/15/18 05/16/18 05/16/18 21:59 05:59 13:59 Intake Total 440 / 440 350 / 350 Output Total 450 / 450 Balance 440 / 440 -100 / -100 Weight 75.07 kg Intake: IV 200 / 200 200 / 200 Merrem 1 gm In Sodium Chloride 100 / 100 100 / 100 0.9% 100 ml @ 100 mls/hr IV Q12H [facility] Rx#:[id number] Oral 240 / 240 150 / 150 Output: Void Amount 450 / 450 Other: Meal Dinner Percent of Meal Consumed 0% Feeding Ability Independent # Voids 1 Exam: General: Alert, Awake, No acute Distress Eyes/N/T: EOMI Head/Neck: neck supple, CV: RRR, No murmurs, normal s1/s2 Pulm: Clear b/l, no wheezing/rhonchi/rales Abd: soft, nontender, +BS x4 Ext: LLE with warmth/erythema/tender, swelling improving, sloughing of some superficial necrotic tissue Neuro: Alert, no focal deficits, moves all extremities, Skin: warm/dry Medical - PN: Obj Da - Labs CBC & Chem 7: 05/16/18 05:00 05/16/18 04:00 Labs: Abnormal Lab Results 05/16/18 05/16/18 05/15/18 05:00 04:00 12:55 WBC 17.5 H RBC 2.92 L Hgb 9.1 L Hct 26.8 L Plt Count 560 H MPV 7.3 L Gran % 78.8 H Lymph % (Auto) 12.8 L Gran # 13.8 H [place] # (Auto) 1.4 H Seg Neutrophils % Lymphocytes % ESR BUN Creatinine 1.5 H Glucose Calcium 8.5 L GGT 37 H Lactate Dehydrogenase C-Reactive Protein 23.3 H Albumin 2.2 L Globulin 4.2 H Albumin/Globulin Ratio 0.5 L Triglycerides 153 H Urine Occult Blood 0.03 A Amorphous Crystals Few A Hyaline Casts 3 H U [place] Prot/Creat Ratio IgM 05/15/18 05/15/18 05/15/18 12:55 05:03 05:03 WBC 24.1 H RBC 3.16 L Hgb 9.6 L Hct 29.4 L Plt Count 543 H MPV 7.3 L Gran % 87.2 H Lymph % (Auto) 7.5 L Gran # 21.0 H [place] # (Auto) 1.3 H Seg Neutrophils % Lymphocytes % ESR BUN Creatinine 1.6 H Glucose 111 H Calcium 8.3 L GGT Lactate Dehydrogenase C-Reactive Protein Albumin 2.4 L Globulin 4.4 H Albumin/Globulin Ratio 0.5 L Triglycerides 187 H Urine Occult Blood Amorphous Crystals Hyaline Casts U [place] Prot/Creat Ratio 0.58 H IgM 05/14/18 05/14/18 05/14/18 20:55 20:55 20:55 WBC RBC Hgb Hct Plt Count MPV Gran % Lymph % (Auto) Gran # [place] # (Auto) Seg Neutrophils % Lymphocytes % ESR > 120 H BUN Creatinine Glucose Calcium GGT Lactate Dehydrogenase C-Reactive Protein 34.1 H Albumin Globulin Albumin/Globulin Ratio Triglycerides Urine Occult Blood Amorphous Crystals Hyaline Casts U [place] Prot/Creat Ratio IgM 424.8 H 05/14/18 05/14/18 05/13/18 04:08 04:08 07:50 WBC 24.1 H 19.1 H RBC 3.31 L 3.39 L Hgb 10.2 L 10.4 L Hct 30.9 L 31.1 L Plt Count 514 H 486 H MPV 7.3 L 7.3 L Gran % Lymph % (Auto) Gran # [place] # (Auto) Seg Neutrophils % 83 H Lymphocytes % 8 L 9 L ESR BUN Creatinine 1.4 H Glucose 117 H Calcium 8.5 L GGT Lactate Dehydrogenase C-Reactive Protein Albumin 2.2 L Globulin 4.7 H Albumin/Globulin Ratio 0.5 L Triglycerides 191 H Urine Occult Blood Amorphous Crystals Hyaline Casts U [place] Prot/Creat Ratio IgM 05/13/18 04:10 WBC RBC Hgb Hct Plt Count MPV Gran % Lymph % (Auto) Gran # [place] # (Auto) Seg Neutrophils % Lymphocytes % ESR BUN 7 L Creatinine Glucose Calcium 8.3 L GGT Lactate Dehydrogenase 313 H C-Reactive Protein Albumin 2.2 L Globulin 4.8 H Albumin/Globulin Ratio 0.5 L Triglycerides 211 H Urine Occult Blood Amorphous Crystals Hyaline Casts U [place] Prot/Creat Ratio IgM Meds: Medications Acetaminophen (Tylenol) 650 mg PO Q4-6HP PRN PRN Reason: PAIN/FEVER > 101 Last Admin: 05/16/18 06:29 Dose: 650 mg Albuterol/Ipratropium (Duoneb) 3 ml NEB Q4HP PRN PRN Reason: Shortness Of Breath Or Wheezing Docusate Sodium (Colace) 100 mg PO BID [facility] Last Admin: 05/15/18 20:42 Dose: Not Given Furosemide (Lasix) 40 mg PO DAILY [facility] Last Admin: 05/15/18 09:15 Dose: 40 mg Heparin Sodium (Porcine) (Heparin) 5,000 unit SQ Q12 [facility] Last Admin: 05/15/18 20:43 Dose: 5,000 unit Heparin Sodium (Porcine) (Heparin Flush) 2 ml IV Q12 [facility] Last Admin: 05/15/18 20:41 Dose: 2 ml Hydromorphone HCl (Dilaudid) 0.5 mg IV Q2HP PRN PRN Reason: PAIN LEVEL > 6 Last Admin: 05/14/18 14:02 Dose: 0.5 mg Magnesium Sulfate (Magnesium Sulfate) 2 gm in 50 mls @ 50 mls/hr IV UD PRN PRN Reason: MG = or < 1.7 Acetaminophen (Ofirmev) 1,000 mg in 100 mls @ 200 mls/hr IV Q6HP PRN PRN Reason: PAIN/FEVER > 101 Last Infusion: 05/16/18 00:46 Dose: Infused Vancomycin HCl 1,500 mg/ (Sodium Chloride) 500 mls @ 333.3 mls/hr IV Q24H [facility] Last Infusion: 05/15/18 13:00 Dose: Infused Meropenem 1 gm/ Sodium (Chloride) 100 mls @ 100 mls/hr IV Q12H [facility] Last Infusion: 05/16/18 00:45 Dose: Infused Ciprofloxacin (Cipro) 400 mg in 200 mls @ 200 mls/hr IV Q24H [facility] Iron Carb/Multivit/[place]/Folic Acid (Multivitamin W/Minerals) 1 tab PO DAILY [facility] Last Admin: 05/15/18 09:15 Dose: 1 tab Ondansetron HCl (Zofran) 4 mg IV Q4-6HP PRN PRN Reason: Nausea And Vomiting Last Admin: 05/15/18 10:34 Dose: 4 mg Oxandrolone (Oxandrin) 5 mg PO BID [facility] Last Admin: 05/15/18 20:40 Dose: 5 mg Oxycodone HCl (Roxicodone) 5 - 10 mg PO Q4HP PRN PRN Reason: pain not responding to tylenol Last Admin: 05/15/18 20:40 Dose: 5 mg Potassium Chloride (Klor-Con) 40 meq PO DAILYP PRN PRN Reason: K+ < 3.5 Senna/Docusate Sodium (Senna Plus Tablet) 1 tab PO HS [facility] Last Admin: 05/15/18 20:43 Dose: Not Given Sodium Chloride (Saline Flush) 10 ml IV UD PRN PRN Reason: FLUSH Sodium Chloride (Saline Flush) 10 ml IV Q8 [facility] Last Admin: 05/16/18 05:34 Dose: 10 ml Sodium Chloride (Saline Flush) 10 ml IV Q12 [facility] Last Admin: 05/15/18 20:41 Dose: 10 ml Vancomycin HCl (Vancomycin Per Pharmacy) 1 order IV UD [facility] Medical - PN: A/P - Time Spent With Patient Total time spent is greater than 50% in coordination of care (as documented) at patient's floor/unit and/or counseling patient: - Narrative A/P Narrative: A: *Severe cellulitis, LLE -Etiology? Not responding to broad spectrum ABX -Has been on Clindamycin and rocephin x 2 days, which was then switched to IV vancomycin and Zosyn, -AFter clinical worsening, the pt was added no ciprofloxacin -05/13 vanco and zosyn were held and doxy added to see if any improvement, -05/14 ertapenum started, -05/15 Vanco resumed , with IV meropenum and ciprofloxacin. ertapenum held. -await pathology report, fugal, cultures and afb stain and cultures -malignancy? consider steroids (recommended by Dr Young/ oncologist) give h /o lymphoma. I am waiting on tissue sample before starting steroids. -CT C/A/P unremarkable for infectious source, b/l pleural effusions -ESR/BRASS BUFFER increased but now stable, Bandemia 10 -IgM only mildly elevated *Severe sepsis: -BC neg -febrile last night *Leukocytosis: path smear shows leucocytosis, no abnormal cells. 2/2 above -17.5<24<24 *Hypokalemia: resolved *contraction alkalosis: resolved *h/o lung mass: followed by oncology dr young, repeat x ray is clear, *Pt has lymphoplasmacytic lymphoma: follows with [facility] -?to cause present situation, [place] macroglobulinemia ?, will send IgM levels, serum viscosity. *SHANE: 2/2 IV contrast and sepsis and possibly Abx -1.5<1.6<1.4<1.0 *Malnutrition: *Anemia: P: -cont current Abx -family want pt transferred to [place], d/w ID -Surgery consulted, Pending surgical (skin and SQ) biopsies -pending AFB/fungal cultures -Sada consulted -Dr. Cárdenas(wound surgeon) following -prn electrolyte replacement - -dietary consult -ppx: heparin Medical - PN: Qual - VTE Deep Vein Thrombosis/Pulmonary Embolism Present on Admission: No
[2018-05-16 07:47] LABS: Lymphocytes % 11 % (15-49); Monocytes % (Manual) 9 % (1-12); Platelet Estimate INCREASED (NORMAL); RBC Morphology NORMAL (NORMAL); Segmented Neutrophils % 80 % (38-78)
--- NOTE | 2018-05-16 08:20 | Transfer Summary ---
Transfer Discharge Sum: Prov Patient information: Note initiated : 05/16/18 at 8:13 am Service Date, if different from initiated Date: [] Patient: Lynette Salamanca 82 y/o F admitted on 05/04/18 for fever, nausea. Chief Complaint: [] Date of admission: 05/04/18 10:19 Discharge Date: 05/17/18 Primary care physician: Jason Kerr Consults: 05/04/18 Consult to Physician [CONS] Stat Comment: Consulting Provider: Eh Mccoy Reason For Exam: Physician to Consult 05/05/18 09:12 Consult to Physician [CONS] Routine Comment: left leg Consulting Provider: Chato De Dios Reason For Exam: Physician to Consult 05/11/18 10:52 Consult to Physician [CONS] Routine Comment: Consulting Provider: Gume Miles Reason For Exam: Physician to Consult 05/15/18 09:25 Consult to Physician [CONS] Routine Comment: renal failure Consulting Provider: Cande Carson Reason For Exam: Physician to Consult Transfer Discharge Sum: Diag - Discharge Diagnosis (1) Cellulitis of leg without foot, left Status: Acute Transfer Discharge Sum: Med - Medications Active and Home Medications: Home Medications No Known Home Meds 09/30/15 [History Confirmed 05/03/18] Active Medications Acetaminophen (Tylenol) 650 mg PO Q4-6HP PRN PRN Reason: PAIN/FEVER > 101 Last Admin: 05/16/18 06:29 Dose: 650 mg Albuterol/Ipratropium (Duoneb) 3 ml NEB Q4HP PRN PRN Reason: Shortness Of Breath Or Wheezing Docusate Sodium (Colace) 100 mg PO BID [facility] Last Admin: 05/15/18 20:42 Dose: Not Given Furosemide (Lasix) 40 mg PO DAILY [facility] Last Admin: 05/15/18 09:15 Dose: 40 mg Heparin Sodium (Porcine) (Heparin) 5,000 unit SQ Q12 [facility] Last Admin: 05/15/18 20:43 Dose: 5,000 unit Heparin Sodium (Porcine) (Heparin Flush) 2 ml IV Q12 [facility] Last Admin: 05/15/18 20:41 Dose: 2 ml Hydromorphone HCl (Dilaudid) 0.5 mg IV Q2HP PRN PRN Reason: PAIN LEVEL > 6 Last Admin: 05/14/18 14:02 Dose: 0.5 mg Magnesium Sulfate (Magnesium Sulfate) 2 gm in 50 mls @ 50 mls/hr IV UD PRN PRN Reason: MG = or < 1.7 Acetaminophen (Ofirmev) 1,000 mg in 100 mls @ 200 mls/hr IV Q6HP PRN PRN Reason: PAIN/FEVER > 101 Last Infusion: 05/16/18 00:46 Dose: Infused Vancomycin HCl 1,500 mg/ (Sodium Chloride) 500 mls @ 333.3 mls/hr IV Q24H [facility] Last Infusion: 05/15/18 13:00 Dose: Infused Meropenem 1 gm/ Sodium (Chloride) 100 mls @ 100 mls/hr IV Q12H [facility] Last Infusion: 05/16/18 00:45 Dose: Infused Ciprofloxacin (Cipro) 400 mg in 200 mls @ 200 mls/hr IV Q24H [facility] Iron Carb/Multivit/Manager Photography/Folic Acid (Multivitamin W/Minerals) 1 tab PO DAILY [facility] Last Admin: 05/15/18 09:15 Dose: 1 tab Ondansetron HCl (Zofran) 4 mg IV Q4-6HP PRN PRN Reason: Nausea And Vomiting Last Admin: 05/15/18 10:34 Dose: 4 mg Oxandrolone (Oxandrin) 5 mg PO BID [facility] Last Admin: 05/15/18 20:40 Dose: 5 mg Oxycodone HCl (Roxicodone) 5 - 10 mg PO Q4HP PRN PRN Reason: pain not responding to tylenol Last Admin: 05/15/18 20:40 Dose: 5 mg Potassium Chloride (Klor-Con) 40 meq PO DAILYP PRN PRN Reason: K+ < 3.5 Senna/Docusate Sodium (Senna Plus Tablet) 1 tab PO HS [facility] Last Admin: 05/15/18 20:43 Dose: Not Given Sodium Chloride (Saline Flush) 10 ml IV UD PRN PRN Reason: FLUSH Sodium Chloride (Saline Flush) 10 ml IV Q8 [facility] Last Admin: 05/16/18 05:34 Dose: 10 ml Sodium Chloride (Saline Flush) 10 ml IV Q12 [facility] Last Admin: 05/15/18 20:41 Dose: 10 ml Vancomycin HCl (Vancomycin Per Pharmacy) 1 order IV UD [facility] Transfer Discharge Sum: Hosp Hospital course: Ms. Salamanca is a 82 year old F 05/04-patient admitted with left lower extremity lymphangitis/cellulitis likely group B streptococcus. Rapidly progressing and hence started on clindamycin/ Rocephin. Await blood cultures. Continue close monitoring, lactic acid trending. Current lactic acid 2.6. On crystalloids. 05/05-wound care consulted. White count at 15.5. 47% bands. Worsening lower extremity redness. Wound care recommends CT scan to rule out osteomyelitis. Blood cultures negative so far. Antibiotic spectrum extended with clindamycin along with Rocephin. Patient however feeling better than previous day and able to bear weight and ambulate. Start aggressive diuresis in light of significant lymphedema. 05/06-patient doing a lot better. Improve lymphedema/redness and pain. CT scan lower extremity shows significant cellulitis/myositis. White count downtrending to 13.1 with downtrending bandemia from afebrile. Blood cultures negative so far. Able to bear weight and ongoing physical therapy. Wound care ongoing. Antibiotics escalated to Zosyn/vancomycin. Possible discharge in 48 hours if continues to improve clinically. Will need outpatient IV antibiotics. No family at bedside. Diuresing well 05/07-patient clinically improving. Improved lower extremity redness pain. Improved leukocytosis down to 9.9 with resolving bandemia. Fever 100.3 this morning. Potassium down to 2.9 on aggressive potassium replacement 120 mg. Continue diuresis. Possible discharge in 24-48 hours with outpatient antibiotics. Blood cultures positive for gram-positive bacilli. Will target antibiotics through May 15. 05/08 Pt seen examined, still has pain in the leg, and erythema, pt reports improvement from admission, but the pic since admission show much less erythema. BC is GPC one bottle, pt wbc count is up today, but is afebrile. CT was neg for abscess n admission. will continue with IV vanco and zosyn for now, monitor for response. 05/09 Patient seen examined no acute overnight issues, feels pain is worse, her lower extermity is more tender and there is some sloughing of the skin, X ray neg for air, USG done neg for abscess, but clinically pt pain is worse, I am not sure how much area was covered by USG looking at the image, I doubt if the entire involved region was covered. Will repeat CT lower extremity with contrast to see if any significant change is present. 05/10 Patient seen and examined lying in bed comfortable. Overnight events noted. She was febrile with a temperature of 101. Repeat blood cultures sent. Labs today show worsening WBC count. Clinically however patient is much better, CT scan done yesterday shows improved cellulitis compared to yesterday. Chest x -ray is negative. The patient's leg also appears to be better. I have increased the dose of Zosyn from 2.25 every 6 to 3.375 every 6, pt to continue on vanco appreciate wound care help. 05/11 Pt seen examined still has erythema and pain, wbc trending up, low grade fever prese given some repsonse to IV abx, but not much, will see if she needs surgical debridement to help with the wound. consult Dr Miles 05/12 Pt seen examined, no acute complaints, still has low grade temperature procalcitonin to be checked, WBC is trending up started on ciprofloxacin yesterday Pt notes that there may have been some rat dropping in the hotel in [facility] where she was , her friend also developed cellulitis? She is not admitted though Appreciated Dr Miles input, cultures sent will see what organisism grow. 05/13 Patient seen examined, no acute overnight issues, afebrile, wbc down to 19K pt leg is not much better, slightly worse today than yesterday, increased sloughing and discharge, pt leg is still warm and tender to touch Plan for skin biopsy today talked with the lab regarding fungal cultures/ sporothrix? h/o patient working in garden with just slippers also given travel to [facility], will send for AFB and mycobacteria cultures. After biopsy consider starting on itraconazole and doxycycline. GET PICC Line today 05/14 Patient seen examined, no acute overnight issues patient pain continues to be high, had biopsy and mulitiple cultures sent yesterday hold off on itraconazole till fungal culture are back, or atleast some indication of sporothrix d/c vanco and zosy on cipro, doxy, started on ertapenum today. 05/15 pt seen examined, fever 101.5 yesterday wbc 24 K, path neg for any abnormal cells CT abdomen and pelvis/chest without contrast shows some pleural effusion, lymphadenopathy, but improving abdominal lymphadenopathy Plan was reviewed with Dr Young who thought possibly of lymphoma is there, consider steroids, will await biopsy results which should be in tomorrow, and t hen talk with him and consider steroids. patient unfortunately has worsening ESR, as well as worsening procalcitonin, with elevated WBC, I appreciate input from Wound care to hold abx, but with worsening procalcitonin, I would rather have her on antibiotics than not. I have stopped doxy and resumed vancomycin She will be swtiched from ertapenum to meropenum continue ciprofloxacin Pateints renal function continues to decline, nephrology consulted, ua, urine prot, lytes and esosinphils, prot creat ratio ordered AT this time I do not have a clear etiology for patient necrotizing cellulitis, just adipose inflammation? malignancy, or fungal or mycobacterial infection. Patient is on broad spectrum coverage so far, and AFB, Fungal cultures are pending, i am also waiting on skin biopsy which will give a report hopefully on Wednesday. Family wishes transfer to higher center if we do not have a clear answer by Wednesday. 05/16 Patient slept poorly last night has some hallucinations. And fever. This morning denies any fever chills. Feels a little better. Family bedside. Family want to send her to [place]. 05/16 Patient slept poorly last night has some hallucinations. And fever. This morning denies any fever chills. Feels a little better. Family bedside. Family want to send her to [place]. 05/17 No overnight events. Afebrile overnight. This morning she says she feels a little raspy but otherwise no new complaints other than continued leg pain. Weakness similar to yesterday. [place] was without any bed yesterday after talking with Dr. Ronquillo (ID specialist). Today a bed became available. Patient graciously accepted by Dr. Solorzano. Pt will be transferred up by ambulance. - Time Spent with Patient Total time spent providing and/or coordinating transfer services: Greater than 30 minutes Transfer Discharge Sum: Exam - Constitutional Vitals: Vital Signs Temp Pulse Resp BP Pulse Ox 05/16/18 07:14 97.8 F 81 20 148/73 96 05/16/18 04:00 97.1 F 91 H 18 154/69 93 05/16/18 00:30 98.9 F 05/15/18 23:45 102.9 F H 77 20 139/57 91 05/15/18 19:16 99.4 F H 93 H 20 144/67 90 05/15/18 15:52 98.1 F 71 16 126/69 95 05/15/18 11:31 97.2 F 65 16 131/65 95 Intake and Output 05/15/18 05/16/18 05/16/18 21:59 05:59 13:59 Intake Total 440 / 440 350 / 350 240 / 240 Output Total 450 / 450 Balance 440 / 440 -100 / -100 240 / 240 Intake: IV 200 / 200 200 / 200 Merrem 1 gm In Sodium Chloride 100 / 100 100 / 100 0.9% 100 ml @ 100 mls/hr IV Q12H [facility] Rx#:[id number] Oral 240 / 240 150 / 150 240 / 240 Output: Void Amount 450 / 450 Other: Meal Dinner Percent of Meal Consumed 0% Feeding Ability Independent # Voids 1 Weight 75.07 kg Transfer Discharge Sum: Data Procedures and tests throughout hospitalization: Pending Orders 05/03/18 20:39 Urine dipstick, poc measuremen NOW 05/04/18 Consult to Physician [CONS] Stat 05/04/18 00:04 Resuscitation Status Routine 05/04/18 00:59 Case Management Referral .Routine Ambulate-Progressive .prn Blood Culture PRN .PRN Condition Routine Elevate head of bed .ROUTINE Intake and Output Q4H Occult blood, stool, guaic poc .ALL STOOLS Oral hygiene .ROUTINE Specialty Bed .prn Vital Signs Q4H Weight Monitoring QHS RD to Adjust Diet/Supplements as Needed Routine Physical Therapy Eval & Tx .routine Incentive Spirometry Assess/Tx Q2HWA Nebulizer management .Routine Oxygen Order .Routine Speech Therapy Eval & Treat .Routine 05/04/18 09:37 Wound Nurse Referral .Routine 05/04/18 10:27 Admit as Inpatient Routine 05/05/18 09:12 Consult to Physician [CONS] Routine 05/07/18 12:00 Communication order .prn 05/10/18 08:29 Occupational Therapy Eval & Tx DAILY 05/11/18 10:52 Consult to Physician [CONS] Routine 05/12/18 09:35 Fungal Culture and Stain,Other Urgent 05/13/18 10:38 Consent for Procedure NOW Heat Therapy Device Management DAILY PICC Dressing Change PRN 05/13/18 14:00 AFB Culture and Stain Routine Anaerobic Culture and Gram St Routine Fungal Culture and Stain,Other Routine Gram Stain Routine 05/13/18 14:01 AFB Culture and Stain Routine Anaerobic Culture and Gram St Routine Fungal Culture and Stain,Other Routine Gram Stain Routine Wound Culture and Gram Stain Routine 05/13/18 14:02 AFB Culture and Stain Routine Anaerobic Culture and Gram St Routine Fungal Culture and Stain,Other Routine Gram Stain Routine Wound Culture and Gram Stain Routine 05/13/18 14:04 Communication order ONCE Communication order PRN Nasopharyngeal Suct. (ED/SSSU) PRN Notify Anesthesia Provider PRN Oxygen Order (ED/SSSU) .Continuous 05/13/18 15:11 0.9 % Sodium Chloride [Saline Flush] 10 ml IV UD PRN Acetaminophen [Ofirmev] 1,000 mg in 100 ml IV Q6HP Acetaminophen [Tylenol] 650 mg PO Q4-6HP PRN HYDROmorphone [Dilaudid] 0.5 mg IV Q2HP PRN Ipratropium/Albuterol [Duoneb] 3 ml NEB Q4HP PRN Magnesium Sulfate 2 gm in 50 ml IV UD Ondansetron [Zofran] 4 mg IV Q4-6HP PRN Potassium Chloride [Klor-Con] 40 meq PO DAILYP PRN oxyCODONE HCL [Roxicodone] 5 - 10 mg PO Q4HP PRN 05/13/18 21:00 0.9 % Sodium Chloride [Saline Flush] 10 ml IV Q12 Docusate Sodium [Colace] 100 mg PO BID Heparin 5,000 unit SQ Q12 Heparin Flush 2 ml IV Q12 Oxandrolone [Oxandrin] 5 mg PO BID Sennosides/Docusate Sodium [Senna Plus Tablet] 1 tab PO HS 05/13/18 22:00 0.9 % Sodium Chloride [Saline Flush] 10 ml IV Q8 05/14/18 09:00 Furosemide [Lasix] 40 mg PO DAILY Multivit,Ther Iron,Ca,FA & Min [Multivitamin W/Minerals] 1 tab PO DAILY 05/14/18 10:38 PICC Dressing Change ONCE 05/14/18 12:57 Regular Diet 05/14/18 20:55 Viscosity Urgent 05/15/18 09:25 Consult to Physician [CONS] Routine 05/15/18 10:40 Vancomycin Per Pharmacy 1 order IV UD 05/15/18 11:00 Vancomycin 1,500 mg 0.9 % Sodium Chloride [Sodium Chloride 0.9%] 500 ml IV Q24H 05/15/18 13:00 Meropenem [Merrem] 1 gm 0.9 % Sodium Chloride [Sodium Chloride 0.9%] 100 ml IV Q12H 05/15/18 14:49 [employer]atic Centre Manager Referral .Routine 05/15/18 23:55 Blood Culture Stat 05/16/18 09:00 Ciprofloxacin [Cipro] 400 mg in 200 ml IV Q24H 05/17/18 04:00 Complete Blood Count DAILY Inpatient Panel DAILY Inpatient Panel DAILY 05/18/18 04:00 Complete Blood Count DAILY Inpatient Panel DAILY Inpatient Panel DAILY 05/19/18 04:00 Complete Blood Count DAILY Inpatient Panel DAILY 05/20/18 04:00 Complete Blood Count DAILY Inpatient Panel DAILY 05/21/18 04:00 Complete Blood Count DAILY Inpatient Panel DAILY Transfer Discharge Sum: A/P - Problem Maintenance (1) Cellulitis of leg without foot, left Status: Acute - Plan Overall status at transfer: patient is not back to baseline Disposition: Xfer [facility] Quality Measure Queries - VTE Deep Vein Thrombosis/Pulmonary Embolism Present on Admission: No
[2018-05-16] MEDS: DOCUSATE SODIUM 100 MG CAPSULE PO SCH ×2 (09:01→20:57)
--- NOTE | 2018-05-16 09:04 | General Surgery Progress Note ---
Subjective Narrative: Note initiated : 05/16/18 at 8:55 am Service Date, if different from initiated Date: [] Patient: Lynette Salamanca 82 y/o F admitted on 05/04/18 for fever, nausea. I saw this patient on morning rounds along with Yuli wound care nurse and Brenda RN. Patient's family members were present in the room during this examination. Overall, apart from some confusion, patient's night was otherwise uneventful. This morning she is at baseline awake, alert and appropriate. Responding to questions and conversations appropriately. Final biopsy results from her last OR procedure are still awaited. Her left leg dressings were taken down and the wound was examined. Objective Temp Pulse Resp BP Pulse Ox 97.8 F 81 20 148/73 96 05/16/18 07:14 05/16/18 07:14 05/16/18 07:14 05/16/18 07:14 05/16/18 07:14 Afebrile. Vital signs are stable. No acute changes in general physical examination. Focused local examination: Continues to have resolution of skin, subcutaneous dermis and periwound soft tissue inflammatory changes, especially along the medial and posterior aspect of calf and leg. All these changes are confined mainly along the underlying distribution of long saphenous varicosities. Homans sign negative. Some improvement with range of motion of the knee ankle and foot since yesterday. Lab results were reviewed. WBC and creatinine are trending down this morning. There is reactive thrombocytosis. These developments were discussed with the patient and her family members. I understand, that patient is to be transferred to [facility] in [place] for further evaluation and management. This is appropriate at this point in time. We do not have a soil specialist, oncologist on site at this time. Patient will also benefit from detailed evaluation by infectious disease specialist. These services are available at the [facility] in [place]. Consideration then can be given to holding off all antibiotics and monitoring organ functions and patient's clinical progress, as felt appropriate. - Additional Data Intake & Output - Last 24 hours: Intake & Output 05/14/18 05/15/18 05/16/18 05/17/18 05:59 05:59 05:59 05:59 Intake Total 2550 / 2550 2878 / 2878 2140 / 2140 240 / 240 Output Total 415 / 415 350 / 350 2750 / 2750 Balance 2135 / 2135 2528 / 2528 -610 / -610 240 / 240 Weight 153 lb 165 lb 165 lb 8 oz - Labs 05/16/18 05:00 05/16/18 04:00 Diabetes panel 05/16/18 Range/Units 04:00 Sodium 140 (133-145) mmol/L Potassium 3.8 (3.3-5.1) mmol/L Chloride 103 (96-108) mmol/L Carbon Dioxide 27 (22-30) mmol/L BUN 14 (8-23) mg/dl Creatinine 1.5 H (0.6-1.1) mg/dl Glucose 92 (70-105) mg/dL Calcium 8.5 L (8.6-10.4) mg/dl AST 25 (0-37) U/l ALT 13 (0-40) U/l Alkaline Phosphatase 59 (39-117) U/L Total Protein 6.4 (5.9-8.4) gm/dL Albumin 2.2 L (3.2-5.2) gm/dL Triglycerides 153 H (<150) mg/dl Calcium panel 05/16/18 Range/Units 04:00 Calcium 8.5 L (8.6-10.4) mg/dl Phosphorus 3.5 (2.7-4.5) mg/dL Albumin 2.2 L (3.2-5.2) gm/dL Pituitary panel 05/16/18 Range/Units 04:00 Sodium 140 (133-145) mmol/L Potassium 3.8 (3.3-5.1) mmol/L Chloride 103 (96-108) mmol/L Carbon Dioxide 27 (22-30) mmol/L BUN 14 (8-23) mg/dl Creatinine 1.5 H (0.6-1.1) mg/dl Glucose 92 (70-105) mg/dL Calcium 8.5 L (8.6-10.4) mg/dl Adrenal panel 05/16/18 Range/Units 04:00 Sodium 140 (133-145) mmol/L Potassium 3.8 (3.3-5.1) mmol/L Chloride 103 (96-108) mmol/L Carbon Dioxide 27 (22-30) mmol/L BUN 14 (8-23) mg/dl Creatinine 1.5 H (0.6-1.1) mg/dl Glucose 92 (70-105) mg/dL Calcium 8.5 L (8.6-10.4) mg/dl Total Bilirubin 0.3 (0.0-1.0) mg/dL AST 25 (0-37) U/l ALT 13 (0-40) U/l Alkaline Phosphatase 59 (39-117) U/L Total Protein 6.4 (5.9-8.4) gm/dL Albumin 2.2 L (3.2-5.2) gm/dL Assessment and Plan (1) Myositis of left lower leg Problem details: NO EVIDENCE OF SKIN BREAKDOWN / OR DISCRETE SKIN AND SUB CUTNEOUS LESION Status: Acute Current Visit: Yes - Narrative A/P Narrative: Assessment: Slow resolution of inflammatory changes. Please refer to detailed discussion above. Plan: To continue with local wound care treatment. Await developments and patient's transfer to [facility] in [facility] If and when patient returns to [facility], will like to see her in the wound care clinic for follow-up. - Time Spent With Patient Total time spent is greater than 50% in coordination of care (as documented) at patient's floor/unit and/or counseling patient: 25 - 35 minutes
[2018-05-16] MEDS: HEPARIN 5,000 UNIT/ML VIAL SQ SCH ×2 (09:10→20:57)
[2018-05-16] MEDS: OXANDROLONE 2.5 MG TABLET PO SCH ×2 (09:10→21:10)
[2018-05-16] MEDS: MULTIVIT,THER IRON,CA,FA & MIN 1 TABLET PO SCH (09:10)
[2018-05-16] MEDS: FUROSEMIDE 40 MG TABLET PO SCH (09:10)
[2018-05-16] MEDS: CIPROFLOXACIN 400 MG/200 ML BAG IV SCH (09:11)
[2018-05-16] MEDS: VANCOMYCIN 1,500 MG in 0.9 % SODIUM CHLORIDE 500 ML IV SCH (09:11)
[2018-05-16] MEDS: MEROPENEM 1 GM in 0.9 % SODIUM CHLORIDE 100 ML IV SCH ×2 (10:30→21:11)
[2018-05-16] MEDS: SENNOSIDES/DOCUSATE SODIUM 1 TAB TABLET PO SCH (21:00)
[2018-05-16] MEDS: oxyCODONE HCL 5 MG TABLET PO PRN (23:48)
[2018-05-17] MEDS: ACETAMINOPHEN 1,000 MG/100 ML BOTTLE IV PRN (00:42)
[2018-05-17] MEDS: 0.9 % SODIUM CHLORIDE 10 ML SYRINGE IV SCH ×3 (04:19→17:03)
[2018-05-17] MEDS ORDERED: LABETALOL HCL 20 MG/4 ML SYRINGE IV PRN (06:56)
--- NOTE | 2018-05-17 07:01 | Internal Med Progress Note ---
Medical - PN: Subj Patient information: Note initiated : 05/17/18 at 6:53 am Service Date, if different from initiated Date: [] Patient: Lynette Salamanca 82 y/o F admitted on 05/04/18 for fever, nausea. Chief Complaint: [] Interval history: 05/04-patient admitted with left lower extremity lymphangitis/cellulitis likely group B streptococcus. Rapidly progressing and hence started on clindamycin/ Rocephin. Await blood cultures. Continue close monitoring, lactic acid trending. Current lactic acid 2.6. On crystalloids. 05/05-wound care consulted. White count at 15.5. 47% bands. Worsening lower extremity redness. Wound care recommends CT scan to rule out osteomyelitis. Blood cultures negative so far. Antibiotic spectrum extended with clindamycin along with Rocephin. Patient however feeling better than previous day and able to bear weight and ambulate. Start aggressive diuresis in light of significant lymphedema. 05/06-patient doing a lot better. Improve lymphedema/redness and pain. CT scan lower extremity shows significant cellulitis/myositis. White count downtrending to 13.1 with downtrending bandemia from afebrile. Blood cultures negative so far. Able to bear weight and ongoing physical therapy. Wound care ongoing. Antibiotics escalated to Zosyn/vancomycin. Possible discharge in 48 hours if continues to improve clinically. Will need outpatient IV antibiotics. No family at bedside. Diuresing well 05/07-patient clinically improving. Improved lower extremity redness pain. Improved leukocytosis down to 9.9 with resolving bandemia. Fever 100.3 this morning. Potassium down to 2.9 on aggressive potassium replacement 120 mg. Continue diuresis. Possible discharge in 24-48 hours with outpatient antibiotics. Blood cultures positive for gram-positive bacilli. Will target antibiotics through May 15. 05/08 Pt seen examined, still has pain in the leg, and erythema, pt reports improvement from admission, but the pic since admission show much less erythema. BC is GPC one bottle, pt wbc count is up today, but is afebrile. CT was neg for abscess n admission. will continue with IV vanco and zosyn for now, monitor for response. 05/09 Patient seen examined no acute overnight issues, feels pain is worse, her lower extermity is more tender and there is some sloughing of the skin, X ray neg for air, USG done neg for abscess, but clinically pt pain is worse, I am not sure how much area was covered by USG looking at the image, I doubt if the entire involved region was covered. Will repeat CT lower extremity with contrast to see if any significant change is present. 05/10 Patient seen and examined lying in bed comfortable. Overnight events noted. She was febrile with a temperature of 101. Repeat blood cultures sent. Labs today show worsening WBC count. Clinically however patient is much better, CT scan done yesterday shows improved cellulitis compared to yesterday. Chest x -ray is negative. The patient's leg also appears to be better. I have increased the dose of Zosyn from 2.25 every 6 to 3.375 every 6, pt to continue on vanco appreciate wound care help. 05/11 Pt seen examined still has erythema and pain, wbc trending up, low grade fever prese given some repsonse to IV abx, but not much, will see if she needs surgical debridement to help with the wound. consult Dr Miles 05/12 Pt seen examined, no acute complaints, still has low grade temperature procalcitonin to be checked, WBC is trending up started on ciprofloxacin yesterday Pt notes that there may have been some rat dropping in the hotel in [facility] where she was , her friend also developed cellulitis? She is not admitted though Appreciated Dr Miles input, cultures sent will see what organisism grow. 05/13 Patient seen examined, no acute overnight issues, afebrile, wbc down to 19K pt leg is not much better, slightly worse today than yesterday, increased sloughing and discharge, pt leg is still warm and tender to touch Plan for skin biopsy today talked with the lab regarding fungal cultures/ sporothrix? h/o patient working in garden with just slippers also given travel to [facility], will send for AFB and mycobacteria cultures. After biopsy consider starting on itraconazole and doxycycline. GET PICC Line today 05/14 Patient seen examined, no acute overnight issues patient pain continues to be high, had biopsy and mulitiple cultures sent yesterday hold off on itraconazole till fungal culture are back, or atleast some indication of sporothrix d/c vanco and zosy on cipro, doxy, started on ertapenum today. 12/16 pt seen examined, fever 101.5 yesterday wbc 24 K, path neg for any abnormal cells CT abdomen and pelvis/chest without contrast shows some pleural effusion, lymphadenopathy, but improving abdominal lymphadenopathy Plan was reviewed with Dr Young who thought possibly of lymphoma is there, consider steroids, will await biopsy results which should be in tomorrow, and t hen talk with him and consider steroids. patient unfortunately has worsening ESR, as well as worsening procalcitonin, with elevated WBC, I appreciate input from Wound care to hold abx, but with worsening procalcitonin, I would rather have her on antibiotics than not. I have stopped doxy and resumed vancomycin She will be swtiched from ertapenum to meropenum continue ciprofloxacin Pateints renal function continues to decline, nephrology consulted, ua, urine prot, lytes and esosinphils, prot creat ratio ordered AT this time I do not have a clear etiology for patient necrotizing cellulitis, just adipose inflammation? malignancy, or fungal or mycobacterial infection. Patient is on broad spectrum coverage so far, and AFB, Fungal cultures are pending, i am also waiting on skin biopsy which will give a report hopefully on Wednesday. Family wishes transfer to higher center if we do not have a clear answer by Wednesday. 05/16 Patient slept poorly last night has some hallucinations. And fever. This morning denies any fever chills. Feels a little better. Family bedside. Family want to send her to [place]. 05/17 Overnight events. Afebrile overnight. This morning she says she feels a little raspy but otherwise no new complaints. Weakness similar to yesterday. [place] without any bed yesterday, attempting again this morning. Review of Systems: denies headache/fever/chills/nausea/vomiting/chest or abdominal pain/cough/ dyspnea/diarrhea. Otherwise see above. - Constitutional Vitals: Vital Signs Temp Pulse Resp BP Pulse Ox 98.5 F 86 20 166/76 99 05/17/18 04:00 05/17/18 04:00 05/17/18 04:00 05/17/18 04:00 05/17/18 04:00 Period Temp Pulse Resp BP Sys/Tobar Pulse Ox Last 24 Hr 97.8 F-99.1 F 78-90 16-20 127-167/58-76 94-99 Intake and Output 05/16/18 05/17/18 05/17/18 21:59 05:59 13:59 Intake Total 240 / 240 200 / 200 Output Total 901 / 901 425 / 425 Balance -661 / -661 -225 / -225 Weight 75.07 kg Intake & Output: Intake & Output 05/16/18 05/17/18 05/17/18 21:59 05:59 13:59 Intake Total 240 / 240 200 / 200 Output Total 901 / 901 425 / 425 Balance -661 / -661 -225 / -225 Weight 75.07 kg Intake: IV 200 / 200 Merrem 1 gm In Sodium Chloride 100 / 100 0.9% 100 ml @ 100 mls/hr IV Q12H [facility] Rx#:[id number] Oral 240 / 240 Output: Void Amount 400 / 400 425 / 425 # of times incontinent of urine 1 / 1 Urine/Stool Mix 500 / 500 Other: Urine Appearance Clear Urine Color Straw Urine Odor Normal Stool Size Small Stool Color Brown Stool Consistency Liquid # Voids 1 1 # Bowel Movements 1 Exam: General: Alert, Awake, No acute Distress Eyes/N/T: EOMI Head/Neck: neck supple, CV: RRR, No murmurs, normal s1/s2 Pulm: Clear b/l, no wheezing/rhonchi/rales Abd: soft, nontender, +BS x4 Ext: LLE with warmth/erythema/tender, swelling improving, sloughing of some superficial necrotic tissue Neuro: Alert, no focal deficits, moves all extremities, Skin: warm/dry Medical - PN: Obj Da - Labs CBC & Chem 7: 05/17/18 04:20 05/17/18 04:20 Labs: Abnormal Lab Results 05/16/18 05/16/18 05/15/18 05:00 04:00 12:55 WBC 17.5 H RBC 2.92 L Hgb 9.1 L Hct 26.8 L Plt Count 560 H MPV 7.3 L Gran % 78.8 H Lymph % (Auto) 12.8 L Gran # 13.8 H Rapides # (Auto) 1.4 H Seg Neutrophils % 80 H Lymphocytes % 11 L ESR Creatinine 1.5 H Glucose Calcium 8.5 L GGT 37 H C-Reactive Protein 23.3 H Albumin 2.2 L Globulin 4.2 H Albumin/Globulin Ratio 0.5 L Triglycerides 153 H Urine Occult Blood 0.03 A Amorphous Crystals Few A Hyaline Casts 3 H U [place] Prot/Creat Ratio IgM 05/15/18 05/15/18 05/15/18 12:55 05:03 05:03 WBC 24.1 H RBC 3.16 L Hgb 9.6 L Hct 29.4 L Plt Count 543 H MPV 7.3 L Gran % 87.2 H Lymph % (Auto) 7.5 L Gran # 21.0 H Rapides # (Auto) 1.3 H Seg Neutrophils % Lymphocytes % ESR Creatinine 1.6 H Glucose 111 H Calcium 8.3 L GGT C-Reactive Protein Albumin 2.4 L Globulin 4.4 H Albumin/Globulin Ratio 0.5 L Triglycerides 187 H Urine Occult Blood Amorphous Crystals Hyaline Casts U [place] Prot/Creat Ratio 0.58 H IgM 05/14/18 05/14/18 05/14/18 20:55 20:55 20:55 WBC RBC Hgb Hct Plt Count MPV Gran % Lymph % (Auto) Gran # [place] # (Auto) Seg Neutrophils % Lymphocytes % ESR > 120 H Creatinine Glucose Calcium GGT C-Reactive Protein 34.1 H Albumin Globulin Albumin/Globulin Ratio Triglycerides Urine Occult Blood Amorphous Crystals Hyaline Casts U [place] Prot/Creat Ratio IgM 424.8 H Meds: Medications Acetaminophen (Tylenol) 650 mg PO Q4-6HP PRN PRN Reason: PAIN/FEVER > 101 Last Admin: 05/16/18 20:58 Dose: 650 mg Albuterol/Ipratropium (Duoneb) 3 ml NEB Q4HP PRN PRN Reason: Shortness Of Breath Or Wheezing Docusate Sodium (Colace) 100 mg PO BID [facility] Last Admin: 05/16/18 20:57 Dose: Not Given Furosemide (Lasix) 40 mg PO DAILY [facility] Last Admin: 05/16/18 09:10 Dose: 40 mg Heparin Sodium (Porcine) (Heparin) 5,000 unit SQ Q12 [facility] Last Admin: 05/16/18 20:57 Dose: 5,000 unit Heparin Sodium (Porcine) (Heparin Flush) 2 ml IV Q12 [facility] Last Admin: 05/16/18 22:20 Dose: 2 ml Hydromorphone HCl (Dilaudid) 0.5 mg IV Q2HP PRN PRN Reason: PAIN LEVEL > 6 Last Admin: 05/14/18 14:02 Dose: 0.5 mg Magnesium Sulfate (Magnesium Sulfate) 2 gm in 50 mls @ 50 mls/hr IV UD PRN PRN Reason: MG = or < 1.7 Acetaminophen (Ofirmev) 1,000 mg in 100 mls @ 200 mls/hr IV Q6HP PRN PRN Reason: PAIN/FEVER > 101 Last Infusion: 05/17/18 01:34 Dose: Infused Vancomycin HCl 1,500 mg/ (Sodium Chloride) 500 mls @ 333.3 mls/hr IV Q24H [facility] Last Admin: 05/16/18 09:11 Dose: 333 mls/hr Meropenem 1 gm/ Sodium (Chloride) 100 mls @ 100 mls/hr IV Q12H [facility] Last Infusion: 05/16/18 22:20 Dose: Infused Ciprofloxacin (Cipro) 400 mg in 200 mls @ 200 mls/hr IV Q24H [facility] Last Admin: 05/16/18 09:11 Dose: 200 mls/hr Iron Carb/Multivit/Webb/Folic Acid (Multivitamin W/Minerals) 1 tab PO DAILY [facility] Last Admin: 05/16/18 09:10 Dose: 1 tab Ondansetron HCl (Zofran) 4 mg IV Q4-6HP PRN PRN Reason: Nausea And Vomiting Last Admin: 05/15/18 10:34 Dose: 4 mg Oxandrolone (Oxandrin) 5 mg PO BID [facility] Last Admin: 05/16/18 21:10 Dose: 5 mg Oxycodone HCl (Roxicodone) 5 - 10 mg PO Q4HP PRN PRN Reason: pain not responding to tylenol Last Admin: 05/16/18 23:48 Dose: 5 mg Potassium Chloride (Klor-Con) 40 meq PO DAILYP PRN PRN Reason: K+ < 3.5 Senna/Docusate Sodium (Senna Plus Tablet) 1 tab PO HS [facility] Last Admin: 05/16/18 21:00 Dose: Not Given Sodium Chloride (Saline Flush) 10 ml IV UD PRN PRN Reason: FLUSH Sodium Chloride (Saline Flush) 10 ml IV Q8 [facility] Last Admin: 05/17/18 04:19 Dose: 10 ml Sodium Chloride (Saline Flush) 10 ml IV Q12 [facility] Last Admin: 05/16/18 21:12 Dose: 10 ml Vancomycin HCl (Vancomycin Per Pharmacy) 1 order IV UD [facility] Medical - PN: A/P - Time Spent With Patient Total time spent is greater than 50% in coordination of care (as documented) at patient's floor/unit and/or counseling patient: - Narrative A/P Narrative: A: *Severe cellulitis, LLE -Etiology? Not responding to broad spectrum ABX -Has been on Clindamycin and rocephin x 2 days, which was then switched to IV vancomycin and Zosyn, -AFter clinical worsening, the pt was added no ciprofloxacin -05/13 vanco and zosyn were held and doxy added to see if any improvement, -05/14 ertapenum started, -05/15 Vanco resumed , with IV meropenum and ciprofloxacin. ertapenum held. -await pathology report, fugal, cultures and afb stain and cultures -malignancy? consider steroids (recommended by Dr Young/ oncologist) give h /o lymphoma. I am waiting on tissue sample before starting steroids. 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 2/2 above -finally starting to trend down again *Hypokalemia: resolved *contraction alkalosis: resolved *h/o lung mass: followed by oncology dr young, repeat x ray is clear, *Pt has lymphoplasmacytic lymphoma: follows with [facility] -?to cause present situation, Waldenstrom macroglobulinemia ?, will send IgM levels, serum viscosity. *SHANE: 2/2 IV contrast and sepsis and possibly Abx -1.1<1.5<1.6<1.4<1.0 *Malnutrition: *Anemia: P: -cont current Abx -pending transfer to [place], did discuss case with Dr. Mckay (ID) -Surgery consulted, Pending surgical skin & SQ biopsy results (histology) -pending AFB/fungal cultures -[facility] following -Dr. Cárdenas(wound surgeon) following -prn electrolyte replacement - -dietary consult -ppx: heparin Medical - PN: Qual - VTE Deep Vein Thrombosis/Pulmonary Embolism Present on Admission: No
[2018-05-17 07:06] LABS: Basophils # (Auto) 0 K/mcL (0.0-0.3); Basophils % (Auto) 0.2 % (0.0-2.0); Eosinophils # (Auto) 0.1 K/mcL (0.0-0.7); Eosinophils % (Auto) 0.7 % (0.0-7.0); Granulocytes % (Auto) 72.6 % (38.0-78.0); Lymphocytes # (Auto) 2.5 K/mcL (1.5-4.8); Lymphocytes % (Auto) 17.1 % (15.5-49.0); Mean Cell Volume 92.2 fL (80.0-100.0); Mean Corpuscular Hemoglobin 30.4 pg (26.0-34.0); Monocytes # (Auto) 1.4 K/mcL (0.1-0.9); Monocytes % (Auto) 9.4 % (1.0-12.0); Platelet Count 689 K/mcL (140-440); RBC 3.02 M/mcL (4.00-5.20); Red Cell Distribution Width 14.1 % (11.5-14.5)
[2018-05-17 07:07] LABS: ALT/SGPT 15 U/l (0-40); Albumin 2.3 gm/dL (3.2-5.2); Albumin/Globulin Ratio 0.5 (1.0-2.3); Alkaline Phosphatase 68 U/L (39-117); Bilirubin,Direct < 0.2 mg/dL (0.0-0.3); Blood Urea Nitrogen 16 mg/dl (8-23); Gamma Glutamyl Transpeptidase 36 U/L (5-36); Uric Acid 6.3 mg/dL (2.5-8.0)
--- NOTE | 2018-05-17 07:13 | Nephrology Progress Note ---
Subjective Patient information: Note initiated : 05/17/18 at 7:10 am Patient: Lynette Salamanca 82 y/o F admitted on 05/04/18 for fever, nausea. Chief Complaint: Fever Principal diagnosis: Left leg cellulitis Pertinent ROS: Left leg cellulitis Left leg pain Weakness No chest pain No shortness of breath No edema Objective - Vital Signs Vital signs: Vital Signs Temp Pulse Resp BP Pulse Ox 05/17/18 04:00 98.5 F 86 20 166/76 99 05/16/18 23:20 99.1 F H 86 20 143/65 95 05/16/18 20:00 94 05/16/18 18:56 97.9 F 90 20 167/69 94 05/16/18 16:00 98.3 F 78 20 140/67 99 05/16/18 12:00 98.0 F 82 16 127/58 95 05/16/18 07:14 97.8 F 81 20 148/73 96 Intake and Output 05/16/18 05/17/18 05/17/18 21:59 05:59 13:59 Intake Total 240 / 240 200 / 200 Output Total 901 / 901 425 / 425 Balance -661 / -661 -225 / -225 Intake: IV 200 / 200 Merrem 1 gm In Sodium Chloride 100 / 100 0.9% 100 ml @ 100 mls/hr IV Q12H [facility] Rx#:[id number] Oral 240 / 240 Output: Void Amount 400 / 400 425 / 425 # of times incontinent of urine 1 / 1 Urine/Stool Mix 500 / 500 Other: Urine Appearance Clear Urine Color Straw Urine Odor Normal Stool Size Small Stool Color Brown Stool Consistency Liquid # Voids 1 1 # Bowel Movements 1 Weight 165 lb 8 oz Intake & Output: Intake & Output 05/16/18 05/17/18 05/17/18 21:59 05:59 13:59 Intake Total 240 / 240 200 / 200 Output Total 901 / 901 425 / 425 Balance -661 / -661 -225 / -225 Weight 165 lb 8 oz Intake: IV 200 / 200 Merrem 1 gm In Sodium Chloride 100 / 100 0.9% 100 ml @ 100 mls/hr IV Q12H [facility] Rx#:[id number] Oral 240 / 240 Output: Void Amount 400 / 400 425 / 425 # of times incontinent of urine 1 / 1 Urine/Stool Mix 500 / 500 Other: Urine Appearance Clear Urine Color Straw Urine Odor Normal Stool Size Small Stool Color Brown Stool Consistency Liquid # Voids 1 1 # Bowel Movements 1 - General Appearance General appearance: appears started age, frail EENT: mucous membranes moist Neck: supple Respiratory: clear Cardiology: no edema Gastrointestinal: no tenderness Integumentary: erythema Neurologic: no focal deficit Musculoskeletal: no deformities Psychiatric: mood/affect appropriate, cooperative - Lab 05/17/18 04:20 05/17/18 04:20 Most recent lab results Calcium 8.9 mg/dl (8.6-10.4) 05/17/18 04:20 Phosphorus 2.9 mg/dL (2.7-4.5) 05/17/18 04:20 Magnesium 1.9 mg/dL (1.6-2.5) 05/17/18 04:20 Assessment and Plan (1) Acute on chronic renal failure Lynette Salamanca is an 82-year-old female with lymphoma, melanoma left eye s/ p enucleation and chronic kidney disease stage 3 based on eGFR just below 60, presented to ED for new onset fever, nausea, vomiting, left lower extremity pain and swelling. Her initial temperature was 103.1. Hospital course was significant for persistent leukocytosis with bandemia, ESR >120 despite broad spectrum antibiotic treatment for 2 weeks. Acute kidney injury on chronic kidney disease stage 3 associated with IV contrast administration with CT on 05/05/18 and 05/09/18 and possible acute toxic nephropathy due to antibiotics. There is no recent history of NSAID use. Intravascular volume depletion, acute glomerulonephritis or acute interstitial nephritis unlikely per work up. Work up: Urinalysis on 05/03/18: Yellow, Clear, pH 6.0, SG 1.019, protein 30, occult blood negative, leukocyte esterase negative, urine WBC 2. Urinalysis on 05/05/18: Yellow, Clear, pH 6.0, SG 1.012, protein negative, occult blood 0.2, leukocyte esterase negative, urine WBC 1. CT Abdomen and Pelvis without contrast on 05/15/18: Report pending. Progress: Urine output: 800 ml reported in the past 24 hours. Serum creatinine decreased from 1.5 to 1.1 in the past 24 hours. Plan: No acute hemodialysis need. Avoid NSAIDs, nephrotoxic medications and IV contrast. Nephrology will sign off. Status: Acute Priority: High Qualifiers: Acute renal failure type: unspecified Chronic kidney disease stage: stage 3 (moderate) Qualified Code(s): N17.9 - Acute kidney failure, unspecified; N18.3 - Chronic kidney disease, stage 3 (moderate)
[2018-05-17] MEDS: VANCOMYCIN 1,500 MG in 0.9 % SODIUM CHLORIDE 500 ML IV SCH (08:31)
[2018-05-17] MEDS: CIPROFLOXACIN 400 MG/200 ML BAG IV SCH (08:31)
[2018-05-17] MEDS: HEPARIN 5,000 UNIT/ML VIAL SQ SCH (08:32)
[2018-05-17] MEDS: MULTIVIT,THER IRON,CA,FA & MIN 1 TABLET PO SCH (08:32)
[2018-05-17] MEDS: FUROSEMIDE 40 MG TABLET PO SCH (08:32)
--- NOTE | 2018-05-17 08:47 | General Surgery Progress Note ---
Subjective Patient reports: no new complaints, feels better, pain is less, tolerating a regular diet, voiding w/o difficulty, bowel movement, afebrile Narrative: Note initiated : 05/17/18 at 8:43 am Service Date, if different from initiated Date: [] Patient: Lynette Salamanca 82 y/o F admitted on 05/04/18 for fever, nausea. Chief Complaint: [] Objective Temp Pulse Resp BP Pulse Ox 98.4 F 89 18 169/72 96 05/17/18 08:13 05/17/18 07:10 05/17/18 07:10 05/17/18 07:10 05/17/18 07:21 AVSS. Uneventful night. No acute changes YORDY. L/E. Significant progress. Medial leg carrera area is clean and NON Edematous. Demarcating skin and adipose slough lateral calf and posterior calf and leg. No purulence, NO crepitus and NO odor. IMPROVING ROM Knee, ankle and foot Rylan's Negative. Labs: Continuing downward trend of WBC and Creatinine. - Additional Data Intake & Output - Last 24 hours: Intake & Output 05/15/18 05/16/18 05/17/18 05/18/18 05:59 05:59 05:59 05:59 Intake Total 2878 / 2878 2140 / 2140 1780 / 1780 Output Total 350 / 350 2750 / 2750 2226 / 2226 Balance 2528 / 2528 -610 / -610 -446 / -446 Weight 165 lb 165 lb 8 oz 165 lb 8 oz - Labs 05/17/18 04:20 05/17/18 04:20 Diabetes panel 05/17/18 Range/Units 04:20 Sodium 140 (133-145) mmol/L Potassium 3.9 (3.3-5.1) mmol/L Chloride 100 (96-108) mmol/L Carbon Dioxide 30 (22-30) mmol/L BUN 16 (8-23) mg/dl Creatinine 1.1 (0.6-1.1) mg/dl Glucose 73 (70-105) mg/dL Calcium 8.9 (8.6-10.4) mg/dl AST 24 (0-37) U/l ALT 15 (0-40) U/l Alkaline Phosphatase 68 (39-117) U/L Total Protein 6.5 (5.9-8.4) gm/dL Albumin 2.3 L (3.2-5.2) gm/dL Triglycerides 160 H (<150) mg/dl Calcium panel 05/17/18 Range/Units 04:20 Calcium 8.9 (8.6-10.4) mg/dl Phosphorus 2.9 (2.7-4.5) mg/dL Albumin 2.3 L (3.2-5.2) gm/dL Pituitary panel 05/17/18 Range/Units 04:20 Sodium 140 (133-145) mmol/L Potassium 3.9 (3.3-5.1) mmol/L Chloride 100 (96-108) mmol/L Carbon Dioxide 30 (22-30) mmol/L BUN 16 (8-23) mg/dl Creatinine 1.1 (0.6-1.1) mg/dl Glucose 73 (70-105) mg/dL Calcium 8.9 (8.6-10.4) mg/dl Adrenal panel 05/17/18 Range/Units 04:20 Sodium 140 (133-145) mmol/L Potassium 3.9 (3.3-5.1) mmol/L Chloride 100 (96-108) mmol/L Carbon Dioxide 30 (22-30) mmol/L BUN 16 (8-23) mg/dl Creatinine 1.1 (0.6-1.1) mg/dl Glucose 73 (70-105) mg/dL Calcium 8.9 (8.6-10.4) mg/dl Total Bilirubin 0.3 (0.0-1.0) mg/dL AST 24 (0-37) U/l ALT 15 (0-40) U/l Alkaline Phosphatase 68 (39-117) U/L Total Protein 6.5 (5.9-8.4) gm/dL Albumin 2.3 L (3.2-5.2) gm/dL Assessment and Plan (1) Myositis of left lower leg Problem details: NO EVIDENCE OF SKIN BREAKDOWN / OR DISCRETE SKIN AND SUB CUTNEOUS LESION Status: Acute Current Visit: Yes - Narrative A/P Narrative: Assessment: Satisfactory progress from wound care point of view. Patient awaits transfer to [place], [place]. Plan: Continue current wound management. Would like to follow her in wound care center when discharged. Spoke with patient and family members. - Time Spent With Patient Total time spent is greater than 50% in coordination of care (as documented) at patient's floor/unit and/or counseling patient: 15 - 24 minutes
[2018-05-17] MEDS ORDERED: LACTOBACILLUS 1 CAPSULE PO SCH (09:00)
[2018-05-17] MEDS: DOCUSATE SODIUM 100 MG CAPSULE PO SCH (09:51)
--- NOTE | 2018-05-17 09:56 | Surgical Pathology Report ---
HISTOLOGY SPECIMEN MICROSCOPIC DIAGNOSIS SKIN, LEFT LOWER LEG, BIOPSY: -- EPIDERMAL ULCERATION AND GRANULATION TISSUE WITH ABUNDANT NECRO-INFLAMMATORY DEBRIS, SEE COMMENT. -- NO BACTERIAL ORGANISMS IDENTIFIED (GRAM STAIN WITH ADEQUATE TECHNICAL CONTROL). -- NO MALIGNANCY IDENTIFIED. (RLF:adj) COMMENT: The biopsy shows predominantly inflammatory and necrotic debris. There are a few viable portions of skin demonstrating ulceration and granulation tissue. No bacterial organisms are identified on gram stain (adequate technical control); recommend correlation with microbiologic studies. There is no immunohistochemical evidence of occult invasive carcinoma (pancytokeratin plus, CD34, CD68). MICROSCOPIC DESCRIPTION Some of the tests reported here may not have been cleared or approved by the U.S. Food and Drug Administration (FDA). However, the FDA has determined that such clearance or approval is not necessary. Pursuant to the requirements of CLIA, this laboratory has established and verified the accuracy and precision of all tests, and additional information about these tests is available upon request. All technical controls are adequate. GROSS DESCRIPTION Received fresh labeled left lower leg biopsy, are multiple pink-cage tissue fragments in aggregate 3 x 2.2 x 0.2 cm. A portion is removed by Dr. Diaz and placed in sterile container for culture. The remainder is entirely submitted in one cassette. (SCB:adj) Electronically Signed by: Kristie Turk M.D.
[2018-05-17] MEDS: MEROPENEM 1 GM in 0.9 % SODIUM CHLORIDE 100 ML IV SCH (09:59)
[2018-05-17] MEDS: ACYCLOVIR 400 MG TABLET PO SCH ×3 (10:00→17:04)
[2018-05-17] MEDS: OXANDROLONE 2.5 MG TABLET PO SCH (10:00)
[2018-05-17] MEDS: ACETAMINOPHEN 325 MG TABLET PO PRN (11:25)
[2018-05-17] MEDS ORDERED: PREGABALIN 25 MG CAPSULE PO SCH ×2 (11:50→21:00)
[2018-05-17] MEDS ORDERED: LOPERAMIDE 2 MG CAPSULE PO PRN (12:25)
[2018-05-17] MEDS ORDERED: [UNRECOGNIZED DRUG - OTHER] IV SCH (12:30)
[2018-05-17] MEDS ORDERED: KCL IV SCH (12:30)
[2018-05-17] MEDS ORDERED: DEXTROSE IV SCH (12:30)
--- NOTE | 2018-05-18 14:16 | Operative Note ---
DATE OF OPERATION: 05/13/2018 PREOPERATIVE DIAGNOSIS: Necrotizing cellulitis left leg. POSTOPERATIVE DIAGNOSIS: Necrotizing cellulitis left leg. PROCEDURE: Skin and subcutaneous biopsy with cultures of inflammatory tissue of the left leg. DESCRIPTION OF PROCEDURE: Under general anesthesia, the entire left leg was prepped and draped from knee to foot. There was severe cellulitis with multiple areas of skin and subcutaneous necrosis along the medial aspect of the leg. The necrotic tissue was gently incised and the subcutaneous tissue was exposed. Two areas were sampled for routine culture and sensitivity. Next, five the areas of the largest portions of necrosis were debrided using Metzenbaum scissors. This was debrided down to the subcutaneous fat. Some of the necrotic subcutaneous fat was also debrided. The lesions were left open. Cultures were sent for fungal stain and culture, acid fast bacteria stain and culture and routine pathology. The wound was covered with Xeroform gauze and then wrapped with a 4-inch Les dressing. The patient tolerated the procedure well. She was awakened and taken to the postanesthesia care unit in satisfactory condition. LCS:caro Job ID: [id number] Doc ID: [id number] Gume Miles M.D.
== END 2018-05-17 16:45 | disposition short-term general hospital (02) | DRG 570 ==
LOC: MEDSUR 20:19 → ED 20:19 → MEDSUR 05-04 00:50
PROVIDERS: ADMIT Internal Medicine; ATTEND Internal Medicine
PROC: [UNRECOGNIZED PROCEDURE] (2018-05-13 13:41)
CPT/HCPCS: 11042; 11100; 83516; 84145; 87149; 87324; 87449; 97161; 97166; 99231; 88341; A4221; A6250; C1751; G0462; J0131; J0456; J0696; J0744; J1170; J1335; J1644; J1940; J1956; J2001; J2185; J2250; J2310; J2405; J2543; J3010; J3370; J3480; J7030; J7040; J7042; J7050; J7060; J7120; J7620; J7620-GY; Q9967